=== PATIENT | female | born 1980 | race Caucasian/White ===

== ENCOUNTER 2016-09-25 23:37 | Emergency (ER) | payer OTHER ==
[~2016-09-25 23:37] MED LIST: /ADVA50050; /MYCO50TA PO; BENA25TA4 PO; CYMB1CAP PO; IBUP200T2 PO; MEST60TA; MEST60TA PO; MOTR200T44 PO; POTA95TA PO; PROV90AE; ZOLO100T PO; ZONI100C2 PO
[2016-09-26] MEDS ORDERED: ONDANSETRON 4 MG ORAL DISINTEGRATING TAB (S0181) As Ordered ONE (01:33)
[2016-09-26 01:50] LABS: CONTROL LINE HCG INT CTR LINE PRESENT
[2016-09-26 01:51] LABS: BASO % 0.5 % (0.0-1.0); EOS # 0.2 K/mm3 (0.0-0.50); EOS % 2.1 % (0.0-3.0); LARGE UNSTAINED CELL # 0.1 K/mm3 (0.0-0.4); LARGE UNSTAINED CELL % 1.5 % (0.0-4.0); LYMPH # 1.4 K/mm3 (1.5-4.5); LYMPH % 17.1 % (24.0-44.0); MEAN CORPUSCULAR HEMOGLOBIN 31.9 pg (27.0-33.0); MEAN CORPUSCULAR HGB CONC 34.2 g/dl (32.0-36.5); MEAN CORPUSCULAR VOLUME 93.1 fl (80.0-96.0); MONO # 0.3 K/mm3 (0.0-0.8); MONO % 3.3 % (0.0-5.0); NEUTROPHILS # 6.3 K/mm3 (1.8-7.7); NEUTROPHILS % 75.5 % (36.0-66.0); PLATELET COUNT, AUTOMATED 399 k/mm3 (150-450); RED CELL DISTRIBUTION WIDTH 12.1 % (11.5-14.5); WHITE BLOOD COUNT 8.3 K/mm3 (4.0-10.0)
[2016-09-26 02:06] LABS: ALBUMIN 3.8 GM/DL (3.2-5.2); ALBUMIN/GLOBULIN RATIO 0.86 (1.00-1.93); ALKALINE PHOSPHATASE 90 U/L (45-117); ALT/SGPT 16 U/L (12-78); AMYLASE 68 U/L (25-115); ANION GAP 7 MEQ/L (8-16); AST/SGOT 9 U/L (15-37); BILIRUBIN,DIRECT < 0.1 MG/DL (0.0-0.2); BILIRUBIN,TOTAL 0.2 MG/DL (0.2-1.0); BLOOD UREA NITROGEN 4 MG/DL (7-18); CALCIUM LEVEL 8.3 MG/DL (8.5-10.1); CARBON DIOXIDE LEVEL 25 MEQ/L (21-32); CHLORIDE LEVEL 107 MEQ/L (98-107); CREATININE FOR GFR 0.66 MG/DL (0.55-1.02); GLOMERULAR FILTRATION RATE > 60.0 (>60); GLUCOSE, FASTING 93 MG/DL (70-105); POTASSIUM SERUM 3.4 MEQ/L (3.5-5.1); SODIUM LEVEL 139 MEQ/L (136-145); TOTAL PROTEIN 8.2 GM/DL (6.4-8.2)
--- NOTE | 2016-09-26 04:09 | EDDOCDS ---
Physician Documentation [facility] Name: Prabha Aquino Age: 36 yrs Sex: Female : 1980 Arrival Date: 09/25/2016 Time: 23:37 Bed 17 Private MD: NO PRIMARY PHYSICIAN, . Disposition: 09/26/16 03:52 Discharged to Home/Self Care. Impression: Vomiting. - Condition is Stable. - Discharge Instructions: Nausea and Vomiting, Nausea and Vomiting, [id number]. - Prescriptions for ZOFRAN ODT 4 mg - dissolve 1 tablet by ORAL route 4 times per day As needed do not chew, do not swallow whole; 10 tablet. - Medication Reconciliation, Local Pharmacy Hours form. - Follow up: Private Physician; When: 4 - 5 days; Reason: Continuance of care. - Problem is an acute exacerbation. - Symptoms have improved. Historical: - Allergies: IV Dye; Narcotics (myasthenia gravis); Nitrofurantoin Macrocrystal (Rash); PENICILLINS (Hives); SULFA (SULFONAMIDES)breathing difficulty; - Home Meds: 1. albuterol sulfate 90 mcg/actuation Inhl HFAA 2 puffs as needed 2. Mestinon 60 mg Oral tab 1 tab every 4 hours for myasthenia gravis 3. Motrin Oral 600 mg as needed 4. IV Ig every other week 5. potassium chloride 20 mEq Oral TbTQ 1 tab once daily - PMHx: Asthma; Gall Bladder Disease; Kidney stones; Migraine Headaches; myasthenia gravis; - PSHx: Cholecystectomy; - Social history: Smoking status: Patient uses tobacco products, light tobacco smoker. No barriers to communication noted, The patient speaks fluent Japanese, Speaks appropriately for age. - Family history: Not pertinent. - : The pt / caregiver states he / she is not on anticoagulants. Home medication list is obtained from the patient. - Exposure Risk Screening:: None identified. 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 11 in. (149.86 cm) (R); Pain 6/10; 01/17 03:58 Pulse 82 MON; Resp 20 S; Temp 98.5(TE); Pulse Ox 97% on R/A; Pain 0/10; cln 04:02 BP 180 / 78 RA Sitting (man/reg); cln 09/25 23:40 Body Mass Index 27.27 (61.23 kg, 149.86 cm) gr2 MDM: 01:09 Ondansetron 4 mg IVP once ordered. mm11 01:09 IV Saline Lock ordered. mm11 01:09 Undress patient appropriately for examination ordered. mm11 01:09 LR Solution 1000 ml IV at bolus once ordered. mm11 01:10 Amylase Ordered. EDMS 01:10 Basic Metabolic Profile Ordered. EDMS 01:10 CBC with Diff Ordered. EDMS 01:10 HCG,Serum Qualitative Ordered. EDMS 01:10 Lipase Ordered. EDMS 01:10 Liver Profile Ordered. EDMS 01:10 NOTHING BY MOUTH+DIET ordered. EDMS 01:33 Ondansetron ODT Oral Disintegrating Tablet 4 mg PO once ordered. mm11 01:45 Financial registration complete. hs2 02:10 Basic Metabolic Profile Reviewed. mm11 02:10 CBC with Diff Reviewed. mm11 02:10 Lipase Reviewed. mm11 02:10 Liver Profile Reviewed. mm11 02:10 Amylase Reviewed. mm11 02:10 HCG,Serum Qualitative Reviewed. mm11 03:51 [facility] Payment Agreement was scanned into [employer] and attached to record. hs2 Administered Medications: 01:30 Not Given (Patient Refused): Ondansetron 4 mg IVP once mlc 01:37 Drug: LR 1000 ml [lactated ringers intravenous solution] Route: IV; Rate: bolus; Site: mlc left antecubital; 01:37 Drug: Ondansetron ODT 4 mg [ondansetron 4 mg disintegrating tablet (1 tabs)] Route: PO; mlc Signatures: Dispatcher [employer] EDMS Mason Laureano RN RN cz Maynard, Matthew, DO DO mm11 Yola Rodriguez RN RN ko2 Terrie Summers, Reg Reg hs2 Ingris Hall RN [facility] [place] The chart was reviewed and I authenticate all verbal orders and agree with the evaluation and treatment provided.Attachments: 03:51 [facility] [place] hs2 MTDD
--- NOTE | 2016-09-26 04:09 | EDDOCDS ---
Nurse's Notes [facility] Name: Prabha Aquino Age: 36 yrs Sex: Female : 1980 Arrival Date: 09/25/2016 Time: 23:37 Bed 17 Private MD: NO PRIMARY PHYSICIAN, . Diagnosis: Vomiting Presentation: 09/25 23:52 Presenting complaint: Patient states: she has been vomiting for 2 days fever of 101 cz abdominal discomfort, throat itchy. Adult Sepsis Screening: The patient does not have new or worsening altered mentation. Patient's respiratory rate is less than 22. Systolic blood pressure is greater than 100. Patient has a qSOFA score of 0- Negative Sepsis Screen. Suicide/Homicide risk assessment- the patient denies having any suicidal and/or homicidal ideations and does not present with any other emotional, behavioral or mental health complaints. Status: Patient is not a clinical laboratory service teacher or dependent. Transition of care: patient was not received from another setting of care. 23:52 Acuity: GISELE Level 3 cz 23:52 Method Of Arrival: Walkin/Carried/Asstd cz Triage Assessment: 23:54 General: Appears in no apparent distress. Pain: Denies pain. Location: abdomen Pain. cz HIV screening NA for this visit Offered previously. 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 albuterol sulfate 90 mcg/actuation Inhl HFAA 2 puffs as needed 2. Mestinon 60 mg Oral tab 1 tab every 4 hours for myasthenia gravis 3. Motrin Oral 600 mg as needed 4. IV Ig every other week 5. potassium chloride 20 mEq Oral TbTQ 1 tab once daily - PMHx: Asthma; Gall Bladder Disease; Kidney stones; Migraine Headaches; myasthenia gravis; - PSHx: Cholecystectomy; - Social history: Smoking status: Patient uses tobacco products, light tobacco smoker. No barriers to communication noted, The patient speaks fluent Polish, Speaks appropriately for age. - Family history: Not pertinent. - : The pt / caregiver states he / she is not on anticoagulants. Home medication list is obtained from the patient. - Exposure Risk Screening:: None identified. Screenin/17 00:44 Screening information is obtained from the patient. Fall risk: No risks identified. ko2 Assistance ADL's: requires no assistance with activities of daily living. Abuse/DV Screen: The patient / caregiver reports he/she is: not in a situation that causes fear, pain or injury. Nutritional screening: No deficits noted. Advance Directives: Currently, there is no health care proxy. There is no active DNR order. There is a living will, There is no Power of Pilot Plant Operator. home support is adequate. Assessment: 00:43 General: Appears in no apparent distress, Behavior is cooperative. Pain: Location: ko2 abdomen Quality of pain is described as "uncomfortable not really a pain". Neurological: No deficits noted. Respiratory: Airway is patent Respiratory effort is even, unlabored, Respiratory pattern is regular, symmetrical. GI: Abdomen is non- distended Bowel sounds present X 4 quads. Abd is soft and non tender. Derm: Skin is normal. 01:43 General: Appears in no apparent distress, Behavior is cooperative. Pain: Location: ko2 abdomen. Neurological: No deficits noted. Respiratory: Airway is patent Respiratory effort is even, unlabored, Respiratory pattern is regular, symmetrical. Derm: Skin is normal. 03:51 General: Appears in no apparent distress, Behavior is cooperative. Neurological: No ko2 deficits noted. Respiratory: Airway is patent Respiratory effort is even, unlabored. Derm: Skin is normal. 04:07 General: Dr Mays notified with discharge BP and there are no concerns with discharge ko2 at this time.. Vital Signs: 09/25 23:40 BP 144 / 98; Pulse 92; Resp 18 S; Temp 98.2(O); Pulse Ox 100% on R/A; Weight 61.23 kg gr2 (R); Height 4 ft. 11 in. (149.86 cm) (R); Pain 6/10; 09/26 03:58 Pulse 82 MON; Resp 20 S; Temp 98.5(TE); Pulse Ox 97% on R/A; Pain 0/10; cln 04:02 BP 180 / 78 RA Sitting (man/reg); cln 09/25 23:40 Body Mass Index 27.27 (61.23 kg, 149.86 cm) gr2 Vitals: 09/25 23:40 Log In Time: September 25, 2016 at 23:40. gr2 ED Course: 23:39 Patient visited by Alondra Judge. gr2 23:39 NO PRIMARY PHYSICIAN, . is Private Physician. gr2 23:39 Patient moved to Waiting gr2 23:40 Patient visited by Alondra Judge. gr2 23:40 Patient moved to Pre RCE gr2 23:53 Triage Initiated cz 09/26 00:22 Yola Rodriguez RN is Primary Nurse. cz 00:22 Patient moved to 17 cz 00:28 Patient visited by Salome Seanz PCA. lamberto 00:45 Patient visited by Yola Rodriguez RN. ko2 00:56 Rafael Mays DO is Attending Physician. mm11 00:56 Patient visited by Rafael Mays DO. mm11 01:05 Patient visited by Rafael Mays DO. mm11 01:30 Amylase Sent. mlc 01:30 Basic Metabolic Profile Sent. mlc 01:30 CBC with Diff Sent. mlc 01:30 HCG,Serum Qualitative Sent. mlc 01:30 Lipase Sent. mlc 01:30 Liver Profile Sent. mlc 01:37 Inserted saline lock: 20 gauge in left antecubital area and blood collected. The mlc patient tolerated the procedure well. 01:44 The patient / caregiver is instructed regarding the plan of care and ED course. ko2 01:45 Patient visited by Yola Rodriguez RN. ko2 02:48 Patient visited by Salome Saenz PCA. lamberto 03:22 Patient visited by Palmira Dillard LPN. cp1 03:51 [facility] Payment Agreement was scanned into [employer] and attached to record. hs2 03:58 Discontinued lock intact, bleeding controlled, pressure dressing applied, No ko2 redness/swelling at site. No procedures done that require assistance. 04:02 Patient visited by Leslie Mak PCA. cln Administered Medications: 01:30 Not Given (Patient Refused): Ondansetron 4 mg IVP once mlc 01:37 Drug: LR 1000 ml [lactated ringers intravenous solution] Route: IV; Rate: bolus; Site: mlc left antecubital; 01:37 Drug: Ondansetron ODT 4 mg [ondansetron 4 mg disintegrating tablet (1 tabs)] Route: PO; mlc Order Results: Lab Order: Amylase; SPEC'M 09/26/16 01:29 Test: AMYLASE; Value: 68; Range: 25-115; Units: U/L; Status: F Lab Order: Basic Metabolic Profile; SPEC'M 09/26/16 01:29 Test: GLUCOSE, FASTING; Value: 93; Range: 70-105; Units: MG/DL; Status: F Test: BLOOD UREA NITROGEN; Value: 4; Range: 7-18; Abnormal: Below low normal; Units: MG/DL; Status: F Test: CREATININE FOR GFR; Value: 0.66; Range: 0.55-1.02; Units: MG/DL; Status: F Test: SODIUM LEVEL; Range: 136-145; Units: MEQ/L; Status: I Test: POTASSIUM SERUM; Range: 3.5-5.1; Units: MEQ/L; Status: I Test: CHLORIDE LEVEL; Range: 98-107; Units: MEQ/L; Status: I Test: CARBON DIOXIDE LEVEL; Range: 21-32; Units: MEQ/L; Status: I Test: ANION GAP; Range: 8-16; Units: MEQ/L; Status: I Test: CALCIUM LEVEL; Range: 8.5-10.1; Units: MG/DL; Status: I Test: GLOMERULAR FILTRATION RATE; Value: > 60.0; Range: >60; Status: F Test: SODIUM LEVEL; Value: 139; Range: 136-145; Units: MEQ/L; Status: F Test: POTASSIUM SERUM; Value: 3.4; Range: 3.5-5.1; Abnormal: Below low normal; Units: MEQ/L; Status: F Test: CHLORIDE LEVEL; Value: 107; Range: 98-107; Units: MEQ/L; Status: F Test: CARBON DIOXIDE LEVEL; Value: 25; Range: 21-32; Units: MEQ/L; Status: F Test: ANION GAP; Value: 7; Range: 8-16; Abnormal: Below low normal; Units: MEQ/L; Status: F Test: CALCIUM LEVEL; Value: 8.3; Range: 8.5-10.1; Abnormal: Below low normal; Units: MG/DL; Status: F Test Note: ; Units are mL/min/1.73 m2 Chronic Kidney Disease Staging per NKF: Stage I & II GFR >=60 Normal to Mildly Decreased Stage III GFR 30-59 Moderately Decreased Stage IV GFR 15-29 Severely Decreased Stage V GFR <15 Very Little GFR Left ESRD GFR <15 on BLADE CHANGER Lab Order: CBC with Diff; SPEC'M 09/26/16 01:29 Test: WHITE BLOOD COUNT; Value: 8.3; Range: 4.0-10.0; Units: K/mm3; Status: F Test: RED BLOOD COUNT; Value: 4.75; Range: 4.00-5.40; Units: M/mm3; Status: F Test: HEMOGLOBIN; Value: 15.1; Range: 12.0-16.0; Units: g/dl; Status: F Test: HEMATOCRIT; Value: 44.2; Range: 36.0-47.0; Units: %; Status: F Test: MEAN CORPUSCULAR VOLUME; Value: 93.1; Range: 80.0-96.0; Units: fl; Status: F Test: MEAN CORPUSCULAR HEMOGLOBIN; Value: 31.9; Range: 27.0-33.0; Units: pg; Status: F Test: MEAN CORPUSCULAR HGB CONC; Value: 34.2; Range: 32.0-36.5; Units: g/dl; Status: F Test: RED CELL DISTRIBUTION WIDTH; Value: 12.1; Range: 11.5-14.5; Units: %; Status: F Test: PLATELET COUNT, AUTOMATED; Value: 399; Range: 150-450; Units: k/mm3; Status: F Test: NEUTROPHILS %; Value: 75.5; Range: 36.0-66.0; Abnormal: Above high normal; Units: %; Status: F Test: LYMPH %; Value: 17.1; Range: 24.0-44.0; Abnormal: Below low normal; Units: %; Status: F Test: MONO %; Value: 3.3; Range: 0.0-5.0; Units: %; Status: F Test: EOS %; Value: 2.1; Range: 0.0-3.0; Units: %; Status: F Test: BASO %; Value: 0.5; Range: 0.0-1.0; Units: %; Status: F Test: LARGE UNSTAINED CELL %; Value: 1.5; Range: 0.0-4.0; Units: %; Status: F Test: NEUTROPHILS #; Value: 6.3; Range: 1.8-7.7; Units: K/mm3; Status: F Test: LYMPH #; Value: 1.4; Range: 1.5-4.5; Abnormal: Below low normal; Units: K/mm3; Status: F Test: MONO #; Value: 0.3; Range: 0.0-0.8; Units: K/mm3; Status: F Test: EOS #; Value: 0.2; Range: 0.0-0.50; Units: K/mm3; Status: F Test: BASO #; Value: 0.0; Range: 0.0-0.2; Units: K/mm3; Status: F Test: LARGE UNSTAINED CELL #; Value: 0.1; Range: 0.0-0.4; Units: K/mm3; Status: F Lab Order: HCG,Serum Qualitative; SPEC 09/26/16 Test: HCG, SERUM QUALITATIVE; Value: NEGATIVE; Range: NEGATIVE; Status: F Lab Order: Lipase; SPEC 09/26/16:29 Test: LIPASE; Value: 580; Range: 73-393; Abnormal: Above high normal; Units: U/L; Status: F Lab Order: Liver Profile; 09/26/16:29 Test: AST/SGOT; Value: 9; Range: 15-37; Abnormal: Below low normal; Units: U/L; Status: F Test: ALT/SGPT; Value: 16; Range: 12-78; Units: U/L; Status: F Test: ALKALINE PHOSPHATASE; Value: 90; Range: 45-117; Units: U/L; Status: F Test: BILIRUBIN,TOTAL; Value: 0.2; Range: 0.2-1.0; Units: MG/DL; Status: F Test: BILIRUBIN,DIRECT; Value: < 0.1; Range: 0.0-0.2; Units: MG/DL; Status: F Test: TOTAL PROTEIN; Value: 8.2; Range: 6.4-8.2; Units: GM/DL; Status: F Test: ALBUMIN; Value: 3.8; Range: 3.2-5.2; Units: GM/DL; Status: F Test: ALBUMIN/GLOBULIN RATIO; Value: 0.86; Range: 1.00-1.93; Abnormal: Below low normal; Status: F Outcome: 03:52 Discharge ordered by Provider. mm11 03:58 Discharge Assessment: Patient awake, alert and oriented x 3. No cognitive and/or ko2 functional deficits noted. Patient verbalized understanding of disposition instructions. patient administered narcotics - no. The following High Risk Discharge criteria are identified: None. Discharged to home ambulatory, with parent. Condition: stable. No special radiology studies were completed. Property sent home with patient. 04:08 Patient left the ED. ko2 Signatures: Mason Laureano, RN MALIHA cz Rafael Mays, DO mm11 Palmira Dillard,FRAME WIRER FRAME WIRER cp1 Salome Saenz, DIRECTOR MORTGAGE DIRECTOR MORTGAGE lamberto Alondra Judge gr2 Ingris Hall RN RN mlc Yola Rodriguez RN RN ko2 Terrie Summers, Reg Reg hs2 Leslie Mak, DIRECTOR MORTGAGE DIRECTOR MORTGAGE cln Corrections: (The following items were deleted from the chart) 04:02 03:58 BP 180 / 78 Sitting Auto R Arm Regular; cln cln MTDD
--- NOTE | 2016-09-28 05:09 | EDDOCDS ---
Physician Documentation [facility] Name: Prabha Aquino Age: 36 yrs Sex: Female : 1980 Arrival Date: 09/25/2016 Time: 23:37 Bed 17 Private MD: NO PRIMARY PHYSICIAN, . Disposition: 09/26/16 03:52 Discharged to Home/Self Care. Impression: Vomiting. - Condition is Stable. - Discharge Instructions: Nausea and Vomiting, Nausea and Vomiting, [id number]. - Prescriptions for ZOFRAN ODT 4 mg - dissolve 1 tablet by ORAL route 4 times per day As needed do not chew, do not swallow whole; 10 tablet. - Medication Reconciliation, Local Pharmacy Hours form. - Follow up: Private Physician; When: 4 - 5 days; Reason: Continuance of care. - Problem is an acute exacerbation. - Symptoms have improved. Historical: - Allergies: IV Dye; Narcotics (myasthenia gravis); Nitrofurantoin Macrocrystal (Rash); PENICILLINS (Hives); SULFA (SULFONAMIDES)breathing difficulty; - Home Meds: 1. albuterol sulfate 90 mcg/actuation Inhl HFAA 2 puffs as needed 2. Mestinon 60 mg Oral tab 1 tab every 4 hours for myasthenia gravis 3. Motrin Oral 600 mg as needed 4. IV Ig every other week 5. potassium chloride 20 mEq Oral TbTQ 1 tab once daily - PMHx: Asthma; Gall Bladder Disease; Kidney stones; Migraine Headaches; myasthenia gravis; - PSHx: Cholecystectomy; - Social history: Smoking status: Patient uses tobacco products, light tobacco smoker. No barriers to communication noted, The patient speaks fluent Chinese, Speaks appropriately for age. - Family history: Not pertinent. - : The pt / caregiver states he / she is not on anticoagulants. Home medication list is obtained from the patient. - Exposure Risk Screening:: None identified. 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 11 in. (149.86 cm) (R); Pain 6/10; 01/17 03:58 Pulse 82 MON; Resp 20 S; Temp 98.5(TE); Pulse Ox 97% on R/A; Pain 0/10; cln 04:02 BP 180 / 78 RA Sitting (man/reg); cln 09/25 23:40 Body Mass Index 27.27 (61.23 kg, 149.86 cm) gr2 MDM: 01:09 Ondansetron 4 mg IVP once ordered. mm11 01:09 IV Saline Lock ordered. mm11 01:09 Undress patient appropriately for examination ordered. mm11 01:09 LR Solution 1000 ml IV at bolus once ordered. mm11 01:10 Amylase Ordered. EDMS 01:10 Basic Metabolic Profile Ordered. EDMS 01:10 CBC with Diff Ordered. EDMS 01:10 HCG,Serum Qualitative Ordered. EDMS 01:10 Lipase Ordered. EDMS 01:10 Liver Profile Ordered. EDMS 01:10 NOTHING BY MOUTH+DIET ordered. EDMS 01:33 Ondansetron ODT Oral Disintegrating Tablet 4 mg PO once ordered. mm11 01:45 Financial registration complete. hs2 02:10 Basic Metabolic Profile Reviewed. mm11 02:10 CBC with Diff Reviewed. mm11 02:10 Lipase Reviewed. mm11 02:10 Liver Profile Reviewed. mm11 02:10 Amylase Reviewed. mm11 02:10 HCG,Serum Qualitative Reviewed. mm11 03:51 [facility] [place] Agreement was scanned into [employer] and attached to record. hs2 11:09 T-Sheet-- Draft Copy was scanned into [employer] and attached to record. gb Administered Medications: 01:30 Not Given (Patient Refused): Ondansetron 4 mg IVP once mlc 01:37 Drug: LR 1000 ml [lactated ringers intravenous solution] Route: IV; Rate: bolus; Site: mlc left antecubital; 01:37 Drug: Ondansetron ODT 4 mg [ondansetron 4 mg disintegrating tablet (1 tabs)] Route: PO; mlc Signatures: Dispatcher [employer] Mason Lynch RN RN cz Barnhardt, Gloria, Reg Reg gb Rafael Mays, DO mm11 Yola Rodriguez RN RN ko2 Terrie Summers, Reg Reg hs2 Ingris Hall RN mlc The chart was reviewed and I authenticate all verbal orders and agree with the evaluation and treatment provided.Attachments: 03:51 [facility] Payment Agreement hs2 11:09 T-Sheet-- Draft Copy gb Chart Complete MTDD
--- NOTE | 2016-09-28 05:09 | EDDOCDS ---
Physician Documentation [facility] Name: Prabha Aquino Age: 36 yrs Sex: Female : 1980 Arrival Date: 09/25/2016 Time: 23:37 Bed 17 Private MD: NO PRIMARY PHYSICIAN, . Disposition: 09/26/16 03:52 Discharged to Home/Self Care. Impression: Vomiting. - Condition is Stable. - Discharge Instructions: Nausea and Vomiting, Nausea and Vomiting, [id number]. - Prescriptions for ZOFRAN ODT 4 mg - dissolve 1 tablet by ORAL route 4 times per day As needed do not chew, do not swallow whole; 10 tablet. - Medication Reconciliation, Local Pharmacy Hours form. - Follow up: Private Physician; When: 4 - 5 days; Reason: Continuance of care. - Problem is an acute exacerbation. - Symptoms have improved. Historical: - Allergies: IV Dye; Narcotics (myasthenia gravis); Nitrofurantoin Macrocrystal (Rash); PENICILLINS (Hives); SULFA (SULFONAMIDES)breathing difficulty; - Home Meds: 1. albuterol sulfate 90 mcg/actuation Inhl HFAA 2 puffs as needed 2. Mestinon 60 mg Oral tab 1 tab every 4 hours for myasthenia gravis 3. Motrin Oral 600 mg as needed 4. IV Ig every other week 5. potassium chloride 20 mEq Oral TbTQ 1 tab once daily - PMHx: Asthma; Gall Bladder Disease; Kidney stones; Migraine Headaches; myasthenia gravis; - PSHx: Cholecystectomy; - Social history: Smoking status: Patient uses tobacco products, light tobacco smoker. No barriers to communication noted, The patient speaks fluent Divehi, Speaks appropriately for age. - Family history: Not pertinent. - : The pt / caregiver states he / she is not on anticoagulants. Home medication list is obtained from the patient. - Exposure Risk Screening:: None identified. 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 11 in. (149.86 cm) (R); Pain 6/10; 01/17 03:58 Pulse 82 MON; Resp 20 S; Temp 98.5(TE); Pulse Ox 97% on R/A; Pain 0/10; cln 04:02 BP 180 / 78 RA Sitting (man/reg); cln 09/25 23:40 Body Mass Index 27.27 (61.23 kg, 149.86 cm) gr2 MDM: 01:09 Ondansetron 4 mg IVP once ordered. mm11 01:09 IV Saline Lock ordered. mm11 01:09 Undress patient appropriately for examination ordered. mm11 01:09 LR Solution 1000 ml IV at bolus once ordered. mm11 01:10 Amylase Ordered. EDMS 01:10 Basic Metabolic Profile Ordered. EDMS 01:10 CBC with Diff Ordered. EDMS 01:10 HCG,Serum Qualitative Ordered. EDMS 01:10 Lipase Ordered. EDMS 01:10 Liver Profile Ordered. EDMS 01:10 NOTHING BY MOUTH+DIET ordered. EDMS 01:33 Ondansetron ODT Oral Disintegrating Tablet 4 mg PO once ordered. mm11 01:45 Financial registration complete. hs2 02:10 Basic Metabolic Profile Reviewed. mm11 02:10 CBC with Diff Reviewed. mm11 02:10 Lipase Reviewed. mm11 02:10 Liver Profile Reviewed. mm11 02:10 Amylase Reviewed. mm11 02:10 HCG,Serum Qualitative Reviewed. mm11 03:51 [facility] [place] Payment Agreement was scanned into [employer] and attached to record. hs2 11:09 T-Sheet-- Draft Copy was scanned into [employer] and attached to record. gb Administered Medications: 01:30 Not Given (Patient Refused): Ondansetron 4 mg IVP once mlc 01:37 Drug: LR 1000 ml [lactated ringers intravenous solution] Route: IV; Rate: bolus; Site: mlc left antecubital; 01:37 Drug: Ondansetron ODT 4 mg [ondansetron 4 mg disintegrating tablet (1 tabs)] Route: PO; mlc Signatures: Dispatcher [employer] Mason Lynch RN RN cz Barnhardt, Gloria, Reg Reg gb Rafael Mays, DO mm11 Yola Rodriguez RN RN ko2 Terrie Summers, Reg Reg hs2 Ingris Hall RN mlc The chart was reviewed and I authenticate all verbal orders and agree with the evaluation and treatment provided.Attachments: 03:51 [facility] Payment Agreement hs2 11:09 T-Sheet-- Draft Copy gb Chart Complete MTDD
--- NOTE | 2016-09-28 05:09 | EDDOCDS ---
Nurse's Notes [facility] Name: Prabha Aquino Age: 36 yrs Sex: Female : 1980 Arrival Date: 09/25/2016 Time: 23:37 Bed 17 Private MD: NO PRIMARY PHYSICIAN, . Diagnosis: Vomiting Presentation: 09/25 23:52 Presenting complaint: Patient states: she has been vomiting for 2 days fever of 101 cz abdominal discomfort, throat itchy. Adult Sepsis Screening: The patient does not have new or worsening altered mentation. Patient's respiratory rate is less than 22. Systolic blood pressure is greater than 100. Patient has a qSOFA score of 0- Negative Sepsis Screen. Suicide/Homicide risk assessment- the patient denies having any suicidal and/or homicidal ideations and does not present with any other emotional, behavioral or mental health complaints. Status: Patient is not a director construction services or dependent. Transition of care: patient was not received from another setting of care. 23:52 Acuity: GISELE Level 3 cz 23:52 Method Of Arrival: Walkin/Carried/Asstd cz Triage Assessment: 23:54 General: Appears in no apparent distress. Pain: Denies pain. Location: abdomen Pain. cz HIV screening NA for this visit Offered previously. AUDIO VISUAL MANAGER: 23:54 LMP 09/24/2016 cz Historical: - Allergies: IV Dye; Narcotics (myasthenia gravis); Nitrofurantoin Macrocrystal (Rash); PENICILLINS (Hives); SULFA (SULFONAMIDES)breathing difficulty; - Home Meds: 1. albuterol sulfate 90 mcg/actuation Inhl HFAA 2 puffs as needed 2. Mestinon 60 mg Oral tab 1 tab every 4 hours for myasthenia gravis 3. Motrin Oral 600 mg as needed 4. IV Ig every other week 5. potassium chloride 20 mEq Oral TbTQ 1 tab once daily - PMHx: Asthma; Gall Bladder Disease; Kidney stones; Migraine Headaches; myasthenia gravis; - PSHx: Cholecystectomy; - Social history: Smoking status: Patient uses tobacco products, light tobacco smoker. No barriers to communication noted, The patient speaks fluent Turkmen, Speaks appropriately for age. - Family history: Not pertinent. - : The pt / caregiver states he / she is not on anticoagulants. Home medication list is obtained from the patient. - Exposure Risk Screening:: None identified. Screenin/17 00:44 Screening information is obtained from the patient. Fall risk: No risks identified. ko2 Assistance ADL's: requires no assistance with activities of daily living. Abuse/DV Screen: The patient / caregiver reports he/she is: not in a situation that causes fear, pain or injury. Nutritional screening: No deficits noted. Advance Directives: Currently, there is no health care proxy. There is no active DNR order. There is a living will, There is no Power of Agent Producer. home support is adequate. Assessment: 00:43 General: Appears in no apparent distress, Behavior is cooperative. Pain: Location: ko2 abdomen Quality of pain is described as "uncomfortable not really a pain". Neurological: No deficits noted. Respiratory: Airway is patent Respiratory effort is even, unlabored, Respiratory pattern is regular, symmetrical. GI: Abdomen is non- distended Bowel sounds present X 4 quads. Abd is soft and non tender. Derm: Skin is normal. 01:43 General: Appears in no apparent distress, Behavior is cooperative. Pain: Location: ko2 abdomen. Neurological: No deficits noted. Respiratory: Airway is patent Respiratory effort is even, unlabored, Respiratory pattern is regular, symmetrical. Derm: Skin is normal. 03:51 General: Appears in no apparent distress, Behavior is cooperative. Neurological: No ko2 deficits noted. Respiratory: Airway is patent Respiratory effort is even, unlabored. Derm: Skin is normal. 04:07 General: Dr Mays notified with discharge BP and there are no concerns with discharge ko2 at this time.. Vital Signs: 09/25 23:40 BP 144 / 98; Pulse 92; Resp 18 S; Temp 98.2(O); Pulse Ox 100% on R/A; Weight 61.23 kg gr2 (R); Height 4 ft. 11 in. (149.86 cm) (R); Pain 6/10; 09/26 03:58 Pulse 82 MON; Resp 20 S; Temp 98.5(TE); Pulse Ox 97% on R/A; Pain 0/10; cln 04:02 BP 180 / 78 RA Sitting (man/reg); cln 09/25 23:40 Body Mass Index 27.27 (61.23 kg, 149.86 cm) gr2 Vitals: 09/25 23:40 Log In Time: September 25, 2016 at 23:40. gr2 ED Course: 23:39 Patient visited by Alondra Judge. gr2 23:39 NO PRIMARY PHYSICIAN, . is Private Physician. gr2 23:39 Patient moved to Waiting gr2 23:40 Patient visited by Alondra Judge. gr2 23:40 Patient moved to Pre RCE gr2 23:53 Triage Initiated cz 09/26 00:22 Yola Rodriguez,MALIHA is Primary Nurse. cz 00:22 Patient moved to 17 cz 00:28 Patient visited by Saloem Saenz PCA. lamberto 00:45 Patient visited by Yola Rodriguez RN. ko2 00:56 Rafael Mays DO is Attending Physician. mm11 00:56 Patient visited by Rafael Mays DO. mm11 01:05 Patient visited by Rafael Mays DO. mm11 01:30 Amylase Sent. mlc 01:30 Basic Metabolic Profile Sent. mlc 01:30 CBC with Diff Sent. mlc 01:30 HCG,Serum Qualitative Sent. mlc 01:30 Lipase Sent. mlc 01:30 Liver Profile Sent. mlc 01:37 Inserted saline lock: 20 gauge in left antecubital area and blood collected. The mlc patient tolerated the procedure well. 01:44 The patient / caregiver is instructed regarding the plan of care and ED course. ko2 01:45 Patient visited by Yola Rodriguez RN. ko2 02:48 Patient visited by Salome Saenz PCA. lamberto 03:22 Patient visited by Palmira Dillard LPN. cp1 03:51 [facility] Payment Agreement was scanned into [employer] and attached to record. hs2 03:58 Discontinued lock intact, bleeding controlled, pressure dressing applied, No ko2 redness/swelling at site. No procedures done that require assistance. 04:02 Patient visited by Leslie Mak PCA. cln 11:09 T-Sheet-- Draft Copy was scanned into [employer] and attached to record. gb Administered Medications: 01:30 Not Given (Patient Refused): Ondansetron 4 mg IVP once mlc 01:37 Drug: LR 1000 ml [lactated ringers intravenous solution] Route: IV; Rate: bolus; Site: [facility] left antecubital; 01:37 Drug: Ondansetron ODT 4 mg [ondansetron 4 mg disintegrating tablet (1 tabs)] Route: PO; mlc Order Results: Lab Order: Amylase; SPEC'M 09/26/16 01:29 Test: AMYLASE; Value: 68; Range: 25-115; Units: U/L; Status: F Lab Order: Basic Metabolic Profile; SPEC'M 09/26/16 01:29 Test: GLUCOSE, FASTING; Value: 93; Range: 70-105; Units: MG/DL; Status: F Test: BLOOD UREA NITROGEN; Value: 4; Range: 7-18; Abnormal: Below low normal; Units: MG/DL; Status: F Test: CREATININE FOR GFR; Value: 0.66; Range: 0.55-1.02; Units: MG/DL; Status: F Test: SODIUM LEVEL; Range: 136-145; Units: MEQ/L; Status: I Test: POTASSIUM SERUM; Range: 3.5-5.1; Units: MEQ/L; Status: I Test: CHLORIDE LEVEL; Range: 98-107; Units: MEQ/L; Status: I Test: CARBON DIOXIDE LEVEL; Range: 21-32; Units: MEQ/L; Status: I Test: ANION GAP; Range: 8-16; Units: MEQ/L; Status: I Test: CALCIUM LEVEL; Range: 8.5-10.1; Units: MG/DL; Status: I Test: GLOMERULAR FILTRATION RATE; Value: > 60.0; Range: >60; Status: F Test: SODIUM LEVEL; Value: 139; Range: 136-145; Units: MEQ/L; Status: F Test: POTASSIUM SERUM; Value: 3.4; Range: 3.5-5.1; Abnormal: Below low normal; Units: MEQ/L; Status: F Test: CHLORIDE LEVEL; Value: 107; Range: 98-107; Units: MEQ/L; Status: F Test: CARBON DIOXIDE LEVEL; Value: 25; Range: 21-32; Units: MEQ/L; Status: F Test: ANION GAP; Value: 7; Range: 8-16; Abnormal: Below low normal; Units: MEQ/L; Status: F Test: CALCIUM LEVEL; Value: 8.3; Range: 8.5-10.1; Abnormal: Below low normal; Units: MG/DL; Status: F Test Note: ; Units are mL/min/1.73 m2 Chronic Kidney Disease Staging per NKF: Stage I & II GFR >=60 Normal to Mildly Decreased Stage III GFR 30-59 Moderately Decreased Stage IV GFR 15-29 Severely Decreased Stage V GFR <15 Very Little GFR Left ESRD GFR <15 on CONSTRUCTION SUPERINTENDENT Lab Order: CBC with Diff; SPEC'M 09/26/16 01:29 Test: WHITE BLOOD COUNT; Value: 8.3; Range: 4.0-10.0; Units: K/mm3; Status: F Test: RED BLOOD COUNT; Value: 4.75; Range: 4.00-5.40; Units: M/mm3; Status: F Test: HEMOGLOBIN; Value: 15.1; Range: 12.0-16.0; Units: g/dl; Status: F Test: HEMATOCRIT; Value: 44.2; Range: 36.0-47.0; Units: %; Status: F Test: MEAN CORPUSCULAR VOLUME; Value: 93.1; Range: 80.0-96.0; Units: fl; Status: F Test: MEAN CORPUSCULAR HEMOGLOBIN; Value: 31.9; Range: 27.0-33.0; Units: pg; Status: F Test: MEAN CORPUSCULAR HGB CONC; Value: 34.2; Range: 32.0-36.5; Units: g/dl; Status: F Test: RED CELL DISTRIBUTION WIDTH; Value: 12.1; Range: 11.5-14.5; Units: %; Status: F Test: PLATELET COUNT, AUTOMATED; Value: 399; Range: 150-450; Units: k/mm3; Status: F Test: NEUTROPHILS %; Value: 75.5; Range: 36.0-66.0; Abnormal: Above high normal; Units: %; Status: F Test: LYMPH %; Value: 17.1; Range: 24.0-44.0; Abnormal: Below low normal; Units: %; Status: F Test: MONO %; Value: 3.3; Range: 0.0-5.0; Units: %; Status: F Test: EOS %; Value: 2.1; Range: 0.0-3.0; Units: %; Status: F Test: BASO %; Value: 0.5; Range: 0.0-1.0; Units: %; Status: F Test: LARGE UNSTAINED CELL %; Value: 1.5; Range: 0.0-4.0; Units: %; Status: F Test: NEUTROPHILS #; Value: 6.3; Range: 1.8-7.7; Units: K/mm3; Status: F Test: LYMPH #; Value: 1.4; Range: 1.5-4.5; Abnormal: Below low normal; Units: K/mm3; Status: F Test: MONO #; Value: 0.3; Range: 0.0-0.8; Units: K/mm3; Status: F Test: EOS #; Value: 0.2; Range: 0.0-0.50; Units: K/mm3; Status: F Test: BASO #; Value: 0.0; Range: 0.0-0.2; Units: K/mm3; Status: F Test: LARGE UNSTAINED CELL #; Value: 0.1; Range: 0.0-0.4; Units: K/mm3; Status: F Lab Order: HCG,Serum Qualitative; SPEC' 09/26/16 01:29 Test: HCG, SERUM QUALITATIVE; Value: NEGATIVE; Range: NEGATIVE; Status: F Lab Order: Lipase; SPEC 09/26/16:29 Test: LIPASE; Value: 580; Range: 73-393; Abnormal: Above high normal; Units: U/L; Status: F Lab Order: Liver Profile; SPEC 09/26/16 01:29 Test: AST/SGOT; Value: 9; Range: 15-37; Abnormal: Below low normal; Units: U/L; Status: F Test: ALT/SGPT; Value: 16; Range: 12-78; Units: U/L; Status: F Test: ALKALINE PHOSPHATASE; Value: 90; Range: 45-117; Units: U/L; Status: F Test: BILIRUBIN,TOTAL; Value: 0.2; Range: 0.2-1.0; Units: MG/DL; Status: F Test: BILIRUBIN,DIRECT; Value: < 0.1; Range: 0.0-0.2; Units: MG/DL; Status: F Test: TOTAL PROTEIN; Value: 8.2; Range: 6.4-8.2; Units: GM/DL; Status: F Test: ALBUMIN; Value: 3.8; Range: 3.2-5.2; Units: GM/DL; Status: F Test: ALBUMIN/GLOBULIN RATIO; Value: 0.86; Range: 1.00-1.93; Abnormal: Below low normal; Status: F Outcome: 03:52 Discharge ordered by Provider. mm11 03:58 Discharge Assessment: Patient awake, alert and oriented x 3. No cognitive and/or ko2 functional deficits noted. Patient verbalized understanding of disposition instructions. patient administered narcotics - no. The following High Risk Discharge criteria are identified: None. Discharged to home ambulatory, with parent. Condition: stable. No special radiology studies were completed. Property sent home with patient. 04:08 Patient left the ED. ko2 Signatures: Mason Laureano, RN RN cz Lona Langley, Reg Reg gb Rafael Mays, DO mm11 Palmira Dillard,CREDIT VERIFIER CREDIT VERIFIER cp1 Salome Saenz, HABITAT BIOLOGIST HABITAT BIOLOGIST lamberto Alondra Judge gr2 Ingris Hall RN RN mlc Yola Rodriguez RN RN ko2 Terrie Summesr, Reg Reg hs2 Leslie Mak, HABITAT BIOLOGIST HABITAT BIOLOGIST cln Corrections: (The following items were deleted from the chart) 04:02 03:58 BP 180 / 78 Sitting Auto R Arm Regular; cln cln Chart Complete MTDD
== END 2016-09-26 04:08 | disposition home or self-care (01) ==
LOC: M ED 23:37
DX: R11.10 Vomiting, unspecified (principal); K82.9 Disease of gallbladder, unspecified; G43.909 Migraine, unspecified, not intractable, without status migrainosus; G70.00 Myasthenia gravis without (acute) exacerbation; J45.909 Unspecified asthma, uncomplicated; Z87.442 Personal history of urinary calculi; Z90.49 Acquired absence of other specified parts of digestive tract; F17.200 Nicotine dependence, unspecified, uncomplicated; Z79.899 Other long term (current) drug therapy; Z88.0 Allergy status to penicillin; Z88.2 Allergy status to sulfonamides; Z88.8 Allergy status to other drugs, medicaments and biological substances; Z88.5 Allergy status to narcotic agent; Z91.041 Radiographic dye allergy status

== ENCOUNTER 2016-09-30 18:24 | Emergency (ER) | payer OTHER ==
[2016-09-30] MEDS ORDERED: LORazepam 1 MG TAB As Ordered ONE (22:11)
[2016-09-30 22:44] LABS: BASO # 0.1 K/mm3 (0.0-0.2); BASO % 1.4 % (0.0-1.0); EOS # 0.2 K/mm3 (0.0-0.50); EOS % 2.2 % (0.0-3.0); LARGE UNSTAINED CELL # 0.1 K/mm3 (0.0-0.4); LARGE UNSTAINED CELL % 1.2 % (0.0-4.0); LYMPH # 2.2 K/mm3 (1.5-4.5); LYMPH % 22.9 % (24.0-44.0); MEAN CORPUSCULAR HEMOGLOBIN 31.7 pg (27.0-33.0); MEAN CORPUSCULAR HGB CONC 33.1 g/dl (32.0-36.5); MEAN CORPUSCULAR VOLUME 95.9 fl (80.0-96.0); MONO # 0.4 K/mm3 (0.0-0.8); MONO % 4.2 % (0.0-5.0); NEUTROPHILS # 6.2 K/mm3 (1.8-7.7); PLATELET COUNT, AUTOMATED 367 k/mm3 (150-450); RED CELL DISTRIBUTION WIDTH 12.9 % (11.5-14.5)
[2016-09-30 22:50] LABS: ANION GAP 4 MEQ/L (8-16); BLOOD UREA NITROGEN 5 MG/DL (7-18); CALCIUM LEVEL 8.5 MG/DL (8.5-10.1); CARBON DIOXIDE LEVEL 28 MEQ/L (21-32); CHLORIDE LEVEL 109 MEQ/L (98-107); CREATININE FOR GFR 0.58 MG/DL (0.55-1.02); GLOMERULAR FILTRATION RATE > 60.0 (>60); GLUCOSE, FASTING 98 MG/DL (70-105); MAGNESIUM LEVEL 1.8 MG/DL (1.8-2.4); POTASSIUM SERUM 3.4 MEQ/L (3.5-5.1); SODIUM LEVEL 141 MEQ/L (136-145)
--- NOTE | 2016-09-30 23:15 | EDDOCDS ---
Nurse's Notes [facility] Name: Prabha Aquino Age: 36 yrs Sex: Female : 1980 Arrival Date: 09/30/2016 Time: 18:24 Bed TR8 Private MD: NO PRIMARY PHYSICIAN, . Diagnosis: Palpitations;Anxiety disorder, unspecified Presentation: 09/30 18:30 Presenting complaint: Patient states: began having a shaky chest with palpitations 1 kr3 day ago. symptoms are intermittent and patient reports has increase of anxiety. Adult Sepsis Screening: The patient does not have new or worsening altered mentation. Patient's respiratory rate is less than 22. Systolic blood pressure is greater than 100. Patient has a qSOFA score of 0- Negative Sepsis Screen. Suicide/Homicide risk assessment- the patient denies having any suicidal and/or homicidal ideations and does not present with any other emotional, behavioral or mental health complaints. Status: Patient is not a financial services sales representative or dependent. Transition of care: patient was not received from another setting of care. 18:30 Acuity: GISELE Level 3 kr3 18:30 Method Of Arrival: Walkin/Carried/Asstd kr3 Triage Assessment: 18:33 General: Appears in no apparent distress, comfortable, Behavior is cooperative. Pain: kr3 Location: chest Pain currently is 2 out of 10 on a pain scale. Quality of pain is described as discomfort. HIV screening NA for this visit Offered previously. Cardiovascular: Reports palpitations last less than 1 minute and is unsure how frequent she feels them. Respiratory: Reports when has heart palpitations feels like breath goes away. Derm: Skin is pink, warm & dry. DELIMER: 18:33 LMP 09/27/2016 kr3 Historical: - Allergies: IV Dye; Narcotics (myasthenia gravis); Nitrofurantoin Macrocrystal (Rash); PENICILLINS (Hives); SULFA (SULFONAMIDES)breathing difficulty; - Home Meds: 1. albuterol sulfate 90 mcg/actuation Inhl HFAA 2 puffs as needed 2. Mestinon 60 mg Oral tab 1 tab every 4 hours for myasthenia gravis (Last dose: 09/30/2016) 3. Motrin Oral 600 mg as needed 4. potassium chloride 20 mEq Oral pack 1 tab once daily (Last dose: 09/29/2016) 5. IV Ig every other week - PMHx: Asthma; Gall Bladder Disease; Kidney stones; Migraine Headaches; myasthenia gravis; - PSHx: D & C; Cholecystectomy; Thyroid Surgery; - Social history: Smoking status: Patient uses tobacco products, current every day smoker. No barriers to communication noted, The patient speaks fluent Paraguayan, Speaks appropriately for age. - Family history: Not pertinent. - : The pt / caregiver states he / she is not on anticoagulants. Home medication list is obtained from the patient, [employer] import data. - Exposure Risk Screening:: None identified. Screenin:12 Screening information is obtained from the patient. Fall risk: No risks identified. cz Assistance ADL's: requires no assistance with activities of daily living. Abuse/DV Screen: The patient / caregiver reports he/she is: not in a situation that causes fear, pain or injury. Nutritional screening: No deficits noted. home support is adequate. Assessment: 23:12 Reassessment: Patient appears in no apparent distress at this time. Patient states cz symptoms have improved. Vital Signs: 18:26 BP 167 / 88; Pulse 86; Resp 18 S; Temp 98.0(O); Pulse Ox 100% on R/A; Weight 61.23 kg gr2 (M); Height 4 ft. 11 in. (149.86 cm) (R); Pain 2/10; 21:27 BP 150 / 94; Pulse 83; Resp 16; Temp 98.1(O); Pulse Ox 98% on R/A; Pain 0/10; sew 23:01 BP 162 / 86; Pulse 77; Resp 16; Temp 98.6(TE); Pulse Ox 98% on R/A; Pain 0/10; sew 18:26 Body Mass Index 27.27 (61.23 kg, 149.86 cm) gr2 Vitals: 18:26 Log In Time: September 30, 2016 at 18:26. gr2 18:28 RN notified that patient meets Red Flag criteria. gr2 ED Course: 18:25 Patient visited by Alondra Judge. gr2 18:25 Patient moved to Waiting gr2 18:26 NO PRIMARY PHYSICIAN, . is Private Physician. gr2 18:27 Patient visited by Alondra Judge. gr2 18:28 Patient visited by Alondra Judge. gr2 18:28 Patient moved to Pre RCE gr2 18:30 Patient moved to PR2 / 26 sew 18:32 Triage Initiated kr3 18:41 Patient visited by Aby Quach. sew 18:41 Patient moved to Pre RCE sew 18:41 EKG done. (by ED staff). Reviewed by Brady Gibson MD. sew 21:19 Patient moved to Triage 2 cz 21:28 Patient visited by Aby Quach. sew 21:43 José Miguel Herman PA is PHCP. mo1 21:43 Blayne Gutiérrez DO is Attending Physician. mo1 21:54 Patient visited by José Miguel Herman PA. mo1 22:04 Patient moved to Radiology cz 22:10 Patient moved to Triage 2 cz 22:16 Patient moved to TR2 cz 22:16 Magnesium Level Sent. sew 22:16 BMP Sent. sew 22:16 CBC with Diff Sent. sew 22:16 Labs drawn. (by ED staff). Sent per order to lab. sew 22:17 Patient visited by Aby Quach. sew 22:27 Patient name changed from Prabha\S\Mary\S\Sipos\S\ to Prabha\S\J\S\Sipos. EDMS 22:28 [facility] Payment Agreement was scanned into [employer] and attached to record. gjb 22:57 Patient moved to PR2 / 26 cz 23:00 [facility] is Referral Physician. mo1 23:00 Bennett Loera MD is Referral Physician. mo1 23:02 Patient visited by Aby Quach. sew 23:07 Patient moved to TR8 cz 23:12 The patient / caregiver is instructed regarding the plan of care and ED course. cz 23:12 No IV's were initiated during this patient's visit. No procedures done that require cz assistance. Administered Medications: 22:16 Drug: LORazepam 0.5 mg [lorazepam 1 mg tablet (0.5 tabs)] Route: PO; jf3 Order Results: Lab Order: CBC with Diff; SPEC'M 09/30/16 22:15 Test: WHITE BLOOD COUNT; Value: 9.0; Range: 4.0-10.0; Units: K/mm3; Status: F Test: RED BLOOD COUNT; Value: 4.52; Range: 4.00-5.40; Units: M/mm3; Status: F Test: HEMOGLOBIN; Value: 14.3; Range: 12.0-16.0; Units: g/dl; Status: F Test: HEMATOCRIT; Value: 43.4; Range: 36.0-47.0; Units: %; Status: F Test: MEAN CORPUSCULAR VOLUME; Value: 95.9; Range: 80.0-96.0; Units: fl; Status: F Test: MEAN CORPUSCULAR HEMOGLOBIN; Value: 31.7; Range: 27.0-33.0; Units: pg; Status: F Test: MEAN CORPUSCULAR HGB CONC; Value: 33.1; Range: 32.0-36.5; Units: g/dl; Status: F Test: RED CELL DISTRIBUTION WIDTH; Value: 12.9; Range: 11.5-14.5; Units: %; Status: F Test: PLATELET COUNT, AUTOMATED; Value: 367; Range: 150-450; Units: k/mm3; Status: F Test: NEUTROPHILS %; Value: 68.0; Range: 36.0-66.0; Abnormal: Above high normal; Units: %; Status: F Test: LYMPH %; Value: 22.9; Range: 24.0-44.0; Abnormal: Below low normal; Units: %; Status: F Test: MONO %; Value: 4.2; Range: 0.0-5.0; Units: %; Status: F Test: EOS %; Value: 2.2; Range: 0.0-3.0; Units: %; Status: F Test: BASO %; Value: 1.4; Range: 0.0-1.0; Abnormal: Above high normal; Units: %; Status: F Test: LARGE UNSTAINED CELL %; Value: 1.2; Range: 0.0-4.0; Units: %; Status: F Test: NEUTROPHILS #; Value: 6.2; Range: 1.8-7.7; Units: K/mm3; Status: F Test: LYMPH #; Value: 2.2; Range: 1.5-4.5; Units: K/mm3; Status: F Test: MONO #; Value: 0.4; Range: 0.0-0.8; Units: K/mm3; Status: F Test: EOS #; Value: 0.2; Range: 0.0-0.50; Units: K/mm3; Status: F Test: BASO #; Value: 0.1; Range: 0.0-0.2; Units: K/mm3; Status: F Test: LARGE UNSTAINED CELL #; Value: 0.1; Range: 0.0-0.4; Units: K/mm3; Status: F Lab Order: BMP; SPEC'M 09/30/16 22:15 Test: GLUCOSE, FASTING; Value: 98; Range: 70-105; Units: MG/DL; Status: F Test: BLOOD UREA NITROGEN; Value: 5; Range: 7-18; Abnormal: Below low normal; Units: MG/DL; Status: F Test: CREATININE FOR GFR; Value: 0.58; Range: 0.55-1.02; Units: MG/DL; Status: F Test: GLOMERULAR FILTRATION RATE; Value: > 60.0; Range: >60; Status: F Test: SODIUM LEVEL; Value: 141; Range: 136-145; Units: MEQ/L; Status: F Test: POTASSIUM SERUM; Value: 3.4; Range: 3.5-5.1; Abnormal: Below low normal; Units: MEQ/L; Status: F Test: CHLORIDE LEVEL; Value: 109; Range: 98-107; Abnormal: Above high normal; Units: MEQ/L; Status: F Test: CARBON DIOXIDE LEVEL; Value: 28; Range: 21-32; Units: MEQ/L; Status: F Test: ANION GAP; Value: 4; Range: 8-16; Abnormal: Below low normal; Units: MEQ/L; Status: F Test: CALCIUM LEVEL; Value: 8.5; Range: 8.5-10.1; Units: MG/DL; Status: F Test Note: ; Units are mL/min/1.73 m2 Chronic Kidney Disease Staging per NKF: Stage I & II GFR >=60 Normal to Mildly Decreased Stage III GFR 30-59 Moderately Decreased Stage IV GFR 15-29 Severely Decreased Stage V GFR <15 Very Little GFR Left ESRD GFR <15 on FISHERIES MANAGER Lab Order: Magnesium Level; SPEC'M 09/30/16 22:15 Test: MAGNESIUM LEVEL; Value: 1.8; Range: 1.8-2.4; Units: MG/DL; Status: F Outcome: 23:00 Discharge ordered by Provider. mo1 23:12 Discharge Assessment: Patient awake, alert and oriented x 3. No cognitive and/or cz functional deficits noted. Patient verbalized understanding of disposition instructions. patient administered narcotics - no. The following High Risk Discharge criteria are identified: None. Discharged to home ambulatory, with family. Condition: stable. Discharge instructions given to patient, Instructed on discharge instructions, follow up and referral plans. Demonstrated understanding of instructions, Pt was receptive of discharge instructions/ teaching. No special radiology studies were completed. Property :Personal belongings accompany Pt. 23:14 Patient left the ED. cz Signatures: Dispatcher [employer] EDMS Mason Laureano RN RN cz Kristi Diop,RN RN nitin3 Aby Quach [place] gr2 José Miguel Herman PA PA mo1 Luke Thompson,RN RN Idania Yen MTDD
--- NOTE | 2016-09-30 23:15 | EDDOCDS ---
Physician Documentation [facility] Name: Prabha Aquino Age: 36 yrs Sex: Female : 1980 Arrival Date: 09/30/2016 Time: 18:24 Bed TR8 Private MD: NO PRIMARY PHYSICIAN, . Disposition: 09/30/16 23:00 Discharged to Home/Self Care. Impression: Palpitations, Anxiety disorder, unspecified. - Condition is Stable. - Discharge Instructions: Panic Attacks, Palpitations. - Medication Reconciliation, Local Pharmacy Hours form. - [facility] up: [facility]; When: Call to arrange an appointment; Reason: Recheck today's complaints, Continuance of care. Follow up: Bennett Loera MD; When: Call to arrange an appointment; Reason: Recheck today's complaints, Continuance of care. - Problem is an ongoing problem. - Symptoms are resolved. Historical: - Allergies: IV Dye; Narcotics (myasthenia gravis); Nitrofurantoin Macrocrystal (Rash); PENICILLINS (Hives); SULFA (SULFONAMIDES)breathing difficulty; - Home Meds: 1. albuterol sulfate 90 mcg/actuation Inhl HFAA 2 puffs as needed 2. Mestinon 60 mg Oral tab 1 tab every 4 hours for myasthenia gravis (Last dose: 09/30/2016) 3. Motrin Oral 600 mg as needed 4. potassium chloride 20 mEq Oral pack 1 tab once daily (Last dose: 09/29/2016) 5. IV Ig every other week - PMHx: Asthma; Gall Bladder Disease; Kidney stones; Migraine Headaches; myasthenia gravis; - PSHx: D & C; Cholecystectomy; Thyroid Surgery; - Social history: Smoking status: Patient uses tobacco products, current every day smoker. No barriers to communication noted, The patient speaks fluent [place], Speaks appropriately for age. - Family history: Not pertinent. - : The pt / caregiver states he / she is not on anticoagulants. Home medication list is obtained from the patient, [employer] import data. - Exposure Risk Screening:: None identified. 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 11 in. (149.86 cm) (R); Pain 2/10; 21:27 BP 150 / 94; Pulse 83; Resp 16; Temp 98.1(O); Pulse Ox 98% on R/A; Pain 0/10; sew 23:01 BP 162 / 86; Pulse 77; Resp 16; Temp 98.6(TE); Pulse Ox 98% on R/A; Pain 0/10; sew 18:26 Body Mass Index 27.27 (61.23 kg, 149.86 cm) gr2 MDM: 18:31 ECG WITH READING ER PHYS+CARDIAG ordered. EDMS 22:00 LORazepam 0.5 mg PO once ordered. mo1 22:01 CBC with Diff Ordered. EDMS 22:01 BMP Ordered. EDMS 22:01 Magnesium Level Ordered. EDMS 22:01 Chest, 2 View (pa\E\lat) Ordered. EDMS 22:28 [facility] Payment Agreement was scanned into [employer] and attached to record. [facility] 22:28 Financial registration complete. gjb 22:56 BMP Reviewed. mo1 22:56 CBC with Diff Reviewed. mo1 22:56 Magnesium Level Reviewed. mo1 Administered Medications: 22:16 Drug: LORazepam 0.5 mg [lorazepam 1 mg tablet (0.5 tabs)] Route: PO; jf3 Signatures: Dispatcher [employer] EDMS Mason Laureano RN RN cz Robie, Kathleen, RN RN kr3 José Miguel Herman PA PA mo1 Idania Conde gjb Luke Thompson RN jf3 The chart was reviewed and I authenticate all verbal orders and agree with the evaluation and treatment provided.Attachments: 22:28 [facility] Payment Agreement [facility] MTDD
--- NOTE | 2016-10-01 13:10 | ECGEPIP ---
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
--- NOTE | 2016-10-01 16:16 | REP ---
PA and lateral chest: Comparisons 07/15/2016. Sternotomy wires are again noted. The lung valle are clear. The cardiac size is normal The anushka, mediastinum, and bony thorax are unremarkable. Impression: Negative PA and lateral chest. There is no interval change. Signed by Balbir Pulido MD 10/01/2016 04:07 P
--- NOTE | 2016-10-03 00:14 | EDDOCDS ---
Physician Documentation [facility] Name: Prabha Aquino Age: 36 yrs Sex: Female : 1980 Arrival Date: 09/30/2016 Time: 18:24 Bed TR8 Private MD: NO PRIMARY PHYSICIAN, . Disposition: 09/30/16 23:00 Discharged to Home/Self Care. Impression: Palpitations, Anxiety disorder, unspecified. - Condition is Stable. - Discharge Instructions: Panic Attacks, Palpitations. - Medication Reconciliation, Local Pharmacy Hours form. - [facility]: [facility]; When: Call to arrange an appointment; Reason: Recheck today's complaints, Continuance of care. Follow up: Bennett Loera MD; When: Call to arrange an appointment; Reason: Recheck today's complaints, Continuance of care. - Problem is an ongoing problem. - Symptoms are resolved. Historical: - Allergies: IV Dye; Narcotics (myasthenia gravis); Nitrofurantoin Macrocrystal (Rash); PENICILLINS (Hives); SULFA (SULFONAMIDES)breathing difficulty; - Home Meds: 1. albuterol sulfate 90 mcg/actuation Inhl HFAA 2 puffs as needed 2. Mestinon 60 mg Oral tab 1 tab every 4 hours for myasthenia gravis (Last dose: 09/30/2016) 3. Motrin Oral 600 mg as needed 4. potassium chloride 20 mEq Oral pack 1 tab once daily (Last dose: 09/29/2016) 5. IV Ig every other week - PMHx: Asthma; Gall Bladder Disease; Kidney stones; Migraine Headaches; myasthenia gravis; - PSHx: D & C; Cholecystectomy; Thyroid Surgery; - Social history: Smoking status: Patient uses tobacco products, current every day smoker. No barriers to communication noted, The patient speaks fluent Nicaraguan, Speaks appropriately for age. - Family history: Not pertinent. - : The pt / caregiver states he / she is not on anticoagulants. Home medication list is obtained from the patient, [employer] import data. - Exposure Risk Screening:: None identified. CARDIOLOGY TECH: 09/30 18:33 LMP 09/27/2016 kr3 Vital Signs: 18:26 BP 167 / 88; Pulse 86; Resp 18 S; Temp 98.0(O); Pulse Ox 100% on R/A; Weight 61.23 kg / gr2 134.99 lbs (M); Height 4 ft. 11 in. (149.86 cm) (R); Pain 2/10; 21:27 BP 150 / 94; Pulse 83; Resp 16; Temp 98.1(O); Pulse Ox 98% on R/A; Pain 0/10; sew 23:01 BP 162 / 86; Pulse 77; Resp 16; Temp 98.6(TE); Pulse Ox 98% on R/A; Pain 0/10; sew 18:26 Body Mass Index 27.27 (61.23 kg, 149.86 cm) gr2 MDM: 18:31 ECG WITH READING ER PHYS+CARDIAG ordered. EDMS 22:00 LORazepam 0.5 mg PO once ordered. mo1 22:01 CBC with Diff Ordered. EDMS 22:01 BMP Ordered. EDMS 22:01 Magnesium Level Ordered. EDMS 22:01 Chest, 2 View (pa\E\lat) Ordered. EDHI 22:28 [facility] Payment Agreement was scanned into [employer] and attached to record. [facility] : Financial registration complete. gjb 22:56 BMP Reviewed. mo1 22:56 CBC with Diff Reviewed. mo1 22:56 Magnesium Level Reviewed. mo1 10/01 15:48 ECG/EKG was scanned into [employer] and attached to record. kf3 17:58 T-Sheet-- Draft Copy was scanned into [employer] and attached to record. klr Administered Medications: 09/30 22:16 Drug: LORazepam 0.5 mg [lorazepam 1 mg tablet (0.5 tabs)] Route: PO; jf3 Signatures: Dispatcher [employer] EDMS Mason Laureano RN RN cz Robie, Kathleen, RN RN kr3 Júnior Aiken, Reg Reg kf3 José Miguel Herman PA PA Idania Chambers [facility] Tonya Mcneil Justin RN jf3 The chart was reviewed and I authenticate all verbal orders and agree with the evaluation and treatment provided.Attachments: 22:28 [facility] Payment Agreement [facility] 10/01 15:48 ECG/EKG kf3 17:58 T-Sheet-- Draft Copy klr Chart Complete MTDD
--- NOTE | 2016-10-03 00:14 | EDDOCDS ---
Physician Documentation [facility] Name: Prabha Aquino Age: 36 yrs Sex: Female : 1980 Arrival Date: 09/30/2016 Time: 18:24 Bed TR8 Private MD: NO PRIMARY PHYSICIAN, . Disposition: 09/30/16 23:00 Discharged to Home/Self Care. Impression: Palpitations, Anxiety disorder, unspecified. - Condition is Stable. - Discharge Instructions: Panic Attacks, Palpitations. - Medication Reconciliation, Local Pharmacy Hours form. - Follow up: [facility]; When: Call to arrange an appointment; Reason: Recheck today's complaints, Continuance of care. Follow up: Bennett Loera MD; When: Call to arrange an appointment; Reason: Recheck today's complaints, Continuance of care. - Problem is an ongoing problem. - Symptoms are resolved. Historical: - Allergies: IV Dye; Narcotics (myasthenia gravis); Nitrofurantoin Macrocrystal (Rash); PENICILLINS (Hives); SULFA (SULFONAMIDES)breathing difficulty; - Home Meds: 1. albuterol sulfate 90 mcg/actuation Inhl HFAA 2 puffs as needed 2. Mestinon 60 mg Oral tab 1 tab every 4 hours for myasthenia gravis (Last dose: 09/30/2016) 3. Motrin Oral 600 mg as needed 4. potassium chloride 20 mEq Oral pack 1 tab once daily (Last dose: 09/29/2016) 5. IV Ig every other week - PMHx: Asthma; Gall Bladder Disease; Kidney stones; Migraine Headaches; myasthenia gravis; - PSHx: D & C; Cholecystectomy; Thyroid Surgery; - Social history: Smoking status: Patient uses tobacco products, current every day smoker. No barriers to communication noted, The patient speaks fluent Central African, Speaks appropriately for age. - Family history: Not pertinent. - : The pt / caregiver states he / she is not on anticoagulants. Home medication list is obtained from the patient, [employer] import data. - Exposure Risk Screening:: None identified. 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 11 in. (149.86 cm) (R); Pain 2/10; 21:27 BP 150 / 94; Pulse 83; Resp 16; Temp 98.1(O); Pulse Ox 98% on R/A; Pain 0/10; sew 23:01 BP 162 / 86; Pulse 77; Resp 16; Temp 98.6(TE); Pulse Ox 98% on R/A; Pain 0/10; sew 18:26 Body Mass Index 27.27 (61.23 kg, 149.86 cm) gr2 MDM: 18:31 ECG WITH READING ER PHYS+CARDIAG ordered. EDMS 22:00 LORazepam 0.5 mg PO once ordered. mo1 22:01 CBC with Diff Ordered. EDMS 22:01 BMP Ordered. EDMS 22:01 Magnesium Level Ordered. EDMS 22:01 Chest, 2 View (pa\E\lat) Ordered. EDAK 22:28 [facility] Payment Agreement was scanned into [employer] and attached to record. [facility] : Financial registration complete. gjb 22:56 BMP Reviewed. mo1 22:56 CBC with Diff Reviewed. mo1 22:56 Magnesium Level Reviewed. mo1 10/01 15:48 ECG/EKG was scanned into [employer] and attached to record. kf3 17:58 T-Sheet-- Draft Copy was scanned into [employer] and attached to record. klr Administered Medications: 09/30 22:16 Drug: LORazepam 0.5 mg [lorazepam 1 mg tablet (0.5 tabs)] Route: PO; jf3 Signatures: Dispatcher [employer] EDMS Mason Laureano RN RN cz Robie, Kathleen, RN RN kr3 Júnior Aiken, Reg Reg kf3 José Miguel Herman PA PA Idania Chambers [facility] Tonya Mcneil Justin RN jf3 The chart was reviewed and I authenticate all verbal orders and agree with the evaluation and treatment provided.Attachments: 22:28 [facility] Payment Agreement [facility] 10/01 15:48 ECG/EKG kf3 17:58 T-Sheet-- Draft Copy klr Chart Complete MTDD
--- NOTE | 2016-10-03 00:15 | EDDOCDS ---
Nurse's Notes [facility] Name: Karel Aquino Age: 36 yrs Sex: Female : 1980 Arrival Date: 09/30/2016 Time: 18:24 Bed TR8 Private MD: NO PRIMARY PHYSICIAN, . Diagnosis: Palpitations;Anxiety disorder, unspecified Presentation: 09/30 18:30 Presenting complaint: Patient states: began having a shaky chest with palpitations 1 kr3 day ago. symptoms are intermittent and patient reports has increase of anxiety. Adult Sepsis Screening: The patient does not have new or worsening altered mentation. Patient's respiratory rate is less than 22. Systolic blood pressure is greater than 100. Patient has a qSOFA score of 0- Negative Sepsis Screen. Suicide/Homicide risk assessment- the patient denies having any suicidal and/or homicidal ideations and does not present with any other emotional, behavioral or mental health complaints. Status: Patient is not a director of therapy services or dependent. Transition of care: patient was not received from another setting of care. 18:30 Acuity: GISELE Level 3 kr3 18:30 Method Of Arrival: Walkin/Carried/Asstd kr3 Triage Assessment: 18:33 General: Appears in no apparent distress, comfortable, Behavior is cooperative. Pain: kr3 Location: chest Pain currently is 2 out of 10 on a pain scale. Quality of pain is described as discomfort. HIV screening NA for this visit Offered previously. Cardiovascular: Reports palpitations last less than 1 minute and is unsure how frequent she feels them. Respiratory: Reports when has heart palpitations feels like breath goes away. Derm: Skin is pink, warm & dry. MATH COACH: 18:33 LMP 09/27/2016 kr3 Historical: - Allergies: IV Dye; Narcotics (myasthenia gravis); Nitrofurantoin Macrocrystal (Rash); PENICILLINS (Hives); SULFA (SULFONAMIDES)breathing difficulty; - Home Meds: 1. albuterol sulfate 90 mcg/actuation Inhl HFAA 2 puffs as needed 2. Mestinon 60 mg Oral tab 1 tab every 4 hours for myasthenia gravis (Last dose: 09/30/2016) 3. Motrin Oral 600 mg as needed 4. potassium chloride 20 mEq Oral pack 1 tab once daily (Last dose: 09/29/2016) 5. IV Ig every other week - PMHx: Asthma; Gall Bladder Disease; Kidney stones; Migraine Headaches; myasthenia gravis; - PSHx: D & C; Cholecystectomy; Thyroid Surgery; - Social history: Smoking status: Patient uses tobacco products, current every day smoker. No barriers to communication noted, The patient speaks fluent Mongolian, Speaks appropriately for age. - Family history: Not pertinent. - : The pt / caregiver states he / she is not on anticoagulants. Home medication list is obtained from the patient, [employer] import data. - Exposure Risk Screening:: None identified. Screenin:12 Screening information is obtained from the patient. Fall risk: No risks identified. cz Assistance ADL's: requires no assistance with activities of daily living. Abuse/DV Screen: The patient / caregiver reports he/she is: not in a situation that causes fear, pain or injury. Nutritional screening: No deficits noted. home support is adequate. Assessment: 23:12 Reassessment: Patient appears in no apparent distress at this time. Patient states cz symptoms have improved. Vital Signs: 18:26 BP 167 / 88; Pulse 86; Resp 18 S; Temp 98.0(O); Pulse Ox 100% on R/A; Weight 61.23 kg gr2 (M); Height 4 ft. 11 in. (149.86 cm) (R); Pain 2/10; 21:27 BP 150 / 94; Pulse 83; Resp 16; Temp 98.1(O); Pulse Ox 98% on R/A; Pain 0/10; sew 23:01 BP 162 / 86; Pulse 77; Resp 16; Temp 98.6(TE); Pulse Ox 98% on R/A; Pain 0/10; sew 18:26 Body Mass Index 27.27 (61.23 kg, 149.86 cm) gr2 Vitals: 18:26 Log In Time: September 30, 2016 at 18:26. gr2 18:28 RN notified that patient meets Red Flag criteria. gr2 ED Course: 18:25 Patient visited by Alondra Judge. gr2 18:25 Patient moved to Waiting gr2 18:26 NO PRIMARY PHYSICIAN, . is Private Physician. gr2 18:27 Patient visited by Alondra Judge. gr2 18:28 Patient visited by Alondra Judge. gr2 18:28 Patient moved to Pre RCE gr2 18:30 Patient moved to PR2 / 26 sew 18:32 Triage Initiated kr3 18:41 Patient visited by Aby Quach. sew 18:41 Patient moved to Pre RCE sew 18:41 EKG done. (by ED staff). Reviewed by Regan Gibson MD. sew 21:19 Patient moved to Triage 2 cz 21:28 Patient visited by Aby Quach. sew 21:43 José Miguel Herman PA is PHCP. mo1 21:43 Blayne Gutiérrez DO is Attending Physician. mo1 21:54 Patient visited by José Miguel Herman PA. mo1 22:04 Patient moved to Radiology cz 22:10 Patient moved to Triage 2 cz 22:16 Patient moved to TR2 cz 22:16 Magnesium Level Sent. sew 22:16 BMP Sent. sew 22:16 CBC with Diff Sent. sew 22:16 Labs drawn. (by ED staff). Sent per order to lab. sew 22:17 Patient visited by Aby Quach. sew 22:27 Patient name changed from Karel\S\Mary\S\Sipos\S\ to Karel\S\J\S\Sipos. EDMS 22:28 [facility] Payment Agreement was scanned into [employer] and attached to record. gjb 22:57 Patient moved to PR2 / 26 cz 23:00 [facility] is Referral Physician. mo1 23:00 Bennett Loera MD is Referral Physician. mo1 23:02 Patient visited by Aby Quach. sew 23:07 Patient moved to TR8 cz 23:12 The patient / caregiver is instructed regarding the plan of care and ED course. cz 23:12 No IV's were initiated during this patient's visit. No procedures done that require cz assistance. 10/01 13:42 EKG-ADULT Returned. EDMS 15:48 ECG/EKG was scanned into [employer] and attached to record. kf3 16:49 Chest, 2 View (pa\E\lat) Returned. EDMS 17:58 T-Sheet-- Draft Copy was scanned into [employer] and attached to record. klr Administered Medications: 09/30 22:16 Drug: LORazepam 0.5 mg [lorazepam 1 mg tablet (0.5 tabs)] Route: PO; jf3 Order Results: Lab Order: CBC with Diff; SPEC'M 09/30/16 22:15 Test: WHITE BLOOD COUNT; Value: 9.0; Range: 4.0-10.0; Units: K/mm3; Status: F Test: RED BLOOD COUNT; Value: 4.52; Range: 4.00-5.40; Units: M/mm3; Status: F Test: HEMOGLOBIN; Value: 14.3; Range: 12.0-16.0; Units: g/dl; Status: F Test: HEMATOCRIT; Value: 43.4; Range: 36.0-47.0; Units: %; Status: F Test: MEAN CORPUSCULAR VOLUME; Value: 95.9; Range: 80.0-96.0; Units: fl; Status: F Test: MEAN CORPUSCULAR HEMOGLOBIN; Value: 31.7; Range: 27.0-33.0; Units: pg; Status: F Test: MEAN CORPUSCULAR HGB CONC; Value: 33.1; Range: 32.0-36.5; Units: g/dl; Status: F Test: RED CELL DISTRIBUTION WIDTH; Value: 12.9; Range: 11.5-14.5; Units: %; Status: F Test: PLATELET COUNT, AUTOMATED; Value: 367; Range: 150-450; Units: k/mm3; Status: F Test: NEUTROPHILS %; Value: 68.0; Range: 36.0-66.0; Abnormal: Above high normal; Units: %; Status: F Test: LYMPH %; Value: 22.9; Range: 24.0-44.0; Abnormal: Below low normal; Units: %; Status: F Test: MONO %; Value: 4.2; Range: 0.0-5.0; Units: %; Status: F Test: EOS %; Value: 2.2; Range: 0.0-3.0; Units: %; Status: F Test: BASO %; Value: 1.4; Range: 0.0-1.0; Abnormal: Above high normal; Units: %; Status: F Test: LARGE UNSTAINED CELL %; Value: 1.2; Range: 0.0-4.0; Units: %; Status: F Test: NEUTROPHILS #; Value: 6.2; Range: 1.8-7.7; Units: K/mm3; Status: F Test: LYMPH #; Value: 2.2; Range: 1.5-4.5; Units: K/mm3; Status: F Test: MONO #; Value: 0.4; Range: 0.0-0.8; Units: K/mm3; Status: F Test: EOS #; Value: 0.2; Range: 0.0-0.50; Units: K/mm3; Status: F Test: BASO #; Value: 0.1; Range: 0.0-0.2; Units: K/mm3; Status: F Test: LARGE UNSTAINED CELL #; Value: 0.1; Range: 0.0-0.4; Units: K/mm3; Status: F Lab Order: [facility]; SPEC'M 09/30/16 22:15 Test: GLUCOSE, FASTING; Value: 98; Range: 70-105; Units: MG/DL; Status: F Test: BLOOD UREA NITROGEN; Value: 5; Range: 7-18; Abnormal: Below low normal; Units: MG/DL; Status: F Test: CREATININE FOR GFR; Value: 0.58; Range: 0.55-1.02; Units: MG/DL; Status: F Test: GLOMERULAR FILTRATION RATE; Value: > 60.0; Range: >60; Status: F Test: SODIUM LEVEL; Value: 141; Range: 136-145; Units: MEQ/L; Status: F Test: POTASSIUM SERUM; Value: 3.4; Range: 3.5-5.1; Abnormal: Below low normal; Units: MEQ/L; Status: F Test: CHLORIDE LEVEL; Value: 109; Range: 98-107; Abnormal: Above high normal; Units: MEQ/L; Status: F Test: CARBON DIOXIDE LEVEL; Value: 28; Range: 21-32; Units: MEQ/L; Status: F Test: ANION GAP; Value: 4; Range: 8-16; Abnormal: Below low normal; Units: MEQ/L; Status: F Test: CALCIUM LEVEL; Value: 8.5; Range: 8.5-10.1; Units: MG/DL; Status: F Test Note: ; Units are mL/min/1.73 m2 Chronic Kidney Disease Staging per NKF: Stage I & II GFR >=60 Normal to Mildly Decreased Stage III GFR 30-59 Moderately Decreased Stage IV GFR 15-29 Severely Decreased Stage V GFR <15 Very Little GFR Left ESRD GFR <15 on BLUNGER MACHINE OPERATOR Lab Order: Magnesium Level; DEENA 09/30/16 22:15 Test: MAGNESIUM LEVEL; Value: 1.8; Range: 1.8-2.4; Units: MG/DL; Status: F Radiology Order: EKG-ADULT Test: EKG-ADULT REASON FOR EXAMINATION: palpitations; Stationary ECG Study; [facility] - ED; ; Test Date: 2016-09-30; Pat Name: KAREL AQUINO Department:; Room: -; Gender: F 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 The cardiac size is normal; ; The anushka, mediastinum, and bony thorax are unremarkable.; ; Impression:; ; Negative PA and lateral chest. There is no interval change.; ; ; Signed by; Balbir Pulido MD 10/01/2016 04:07 P; Outcome: 23:00 Discharge ordered by Provider. mo1 23:12 Discharge Assessment: Patient awake, alert and oriented x 3. No cognitive and/or cz functional deficits noted. Patient verbalized understanding of disposition instructions. patient administered narcotics - no. The following High Risk Discharge criteria are identified: None. Discharged to home ambulatory, with family. Condition: stable. Discharge instructions given to patient, Instructed on discharge instructions, follow up and referral plans. Demonstrated understanding of instructions, Pt was receptive of discharge instructions/ teaching. No special radiology studies were completed. Property :Personal belongings accompany Pt. 23:14 Patient left the ED. glen Signatures: Dispatcher [employer] EDMason Vazquez, MALIHA RN Kristi Breen,RN RN kr3 Júnior Aiken, Reg Reg kf3 Main, Alondra Pleitez gr2 José Miguel Herman PA PA mo1 Luke Thompson,RN RN sarah beth3 Idania Conde Kathie klr Chart Complete MTDD
== END 2016-09-30 23:14 | disposition home or self-care (01) ==
LOC: M ED 18:24
DX: R00.2 Palpitations (principal); J45.909 Unspecified asthma, uncomplicated; E87.6 Hypokalemia; G43.909 Migraine, unspecified, not intractable, without status migrainosus; K82.9 Disease of gallbladder, unspecified; Z87.442 Personal history of urinary calculi; G70.00 Myasthenia gravis without (acute) exacerbation; Z79.899 Other long term (current) drug therapy; Z88.0 Allergy status to penicillin; Z88.2 Allergy status to sulfonamides; Z88.5 Allergy status to narcotic agent; Z88.8 Allergy status to other drugs, medicaments and biological substances; Z91.041 Radiographic dye allergy status; F17.210 Nicotine dependence, cigarettes, uncomplicated

== ENCOUNTER 2016-10-13 07:11 | Emergency (ER) | payer OTHER ==
--- NOTE | 2016-10-13 07:49 | EDDOCDS ---
Nurse's Notes [facility] Name: Prabha Aquino Age: 36 yrs Sex: Female : 1980 Arrival Date: 10/13/2016 Time: 07:11 Bed I2 / M2 Private MD: Diagnosis: Superficial injury of head-closed Presentation: 10/13 07:19 Presenting complaint: Patient states: approx 2 hours ago struck head on arm rest of jjr couch after standing on couch then went to sit, pain to right side of head denies LOC. Adult Sepsis Screening: The patient does not have new or worsening altered mentation. Patient's respiratory rate is less than 22. Systolic blood pressure is greater than 100. Patient has a qSOFA score of 0- Negative Sepsis Screen. Suicide/Homicide risk assessment- the patient denies having any suicidal and/or homicidal ideations and does not present with any other emotional, behavioral or mental health complaints. Status: Patient is not a support services specialist or dependent. Transition of care: patient was not received from another setting of care. 07:19 Acuity: GISELE Level 4 jjr 07:19 Method Of Arrival: Walkin/Carried/Asstd jjr Triage Assessment: 07:25 General: Appears in no apparent distress, Behavior is appropriate for age. Pain: jjr Location: right temporal area. HIV screening NA for this visit Offered previously. Musculoskeletal: No deficits noted. SAP BASIS CONSULTANT: 07:23 LMP 09/24/2016 jjr Historical: - Allergies: IV Dye (Anaphylaxis); Narcotics (myasthenia gravis); Nitrofurantoin Macrocrystal (Rash); PENICILLINS (Hives); SULFA (SULFONAMIDES)breathing difficulty; pt has 2 page list of contraindicated meds; - Home Meds: 1. albuterol sulfate 90 mcg/actuation Inhl HFAA 2 puffs as needed 2. IV Ig every other week 3. Mestinon 60 mg Oral tab 1 tab every 4 hours for myasthenia gravis 4. potassium chloride 20 mEq Oral pack 1 tab once daily - PMHx: Asthma; Kidney stones; Migraine Headaches; myasthenia gravis; - PSHx: D & C; Cholecystectomy; thymectomy; - Social history: Smoking status: Patient uses tobacco products, current every day smoker. No barriers to communication noted, The patient speaks fluent Congolese. - Family history: Not pertinent. - : The pt / caregiver states he / she is not on anticoagulants. Home medication list is obtained from the patient. - Exposure Risk Screening:: None identified. Screenin:47 Screening information is obtained from the patient. Fall risk: No risks identified. srm Assistance ADL's: requires no assistance with activities of daily living. Abuse/DV Screen: The patient / caregiver reports he/she is: not in a situation that causes fear, pain or injury. Nutritional screening: No deficits noted. Advance Directives: There is no active DNR order. home support is adequate. Assessment: 07:47 General: Appears in no apparent distress, Behavior is appropriate for age, cooperative. srm Neurological: Level of Consciousness is awake, alert, Oriented to person, place, time, Manager Interventional are equal bilaterally Moves all extremities. Full function Gait is steady, Speech is normal, Facial symmetry appears normal, Pupils are PERRLA. Respiratory: No deficits noted. GI: No deficits noted. Musculoskeletal: Circulation, motion, and sensation intact. Vital Signs: 07:23 BP 141 / 91; Pulse 88; Resp 18; Temp 98.4(O); Pulse Ox 97% on R/A; Weight 61.23 kg (R); jjr Height 4 ft. 11 in. (149.86 cm) (R); Pain 3/10; 07:23 Body Mass Index 27.27 (61.23 kg, 149.86 cm) [facility] Vitals: 07:23 Log In Time: October 13, 2016 at 07:13. r ED Course: 07:13 Patient visited by Terrie Summers Reg. hs2 07:13 Patient moved to Waiting hs2 07:21 Triage Initiated jjr 07:25 Patient moved to I2 / M2 jjr 07:28 [facility] ar2 07:28 Jesus Roy MD is Attending Physician. ar2 07:30 Patient visited by Gary Bradshaw PA-C. ar2 07:47 The patient / caregiver is instructed regarding the plan of care and ED course. Patient srm has correct armband on for positive identification. 07:47 No IV's were initiated during this patient's visit. No procedures done that require srm assistance. Order Results: There are currently no results for this order. Outcome: 07:40 Discharge ordered by Provider. ar2 07:47 Discharge Assessment: Patient awake, alert and oriented x 3. No cognitive and/or srm functional deficits noted. Patient verbalized understanding of disposition instructions. patient administered narcotics - no. The following High Risk Discharge criteria are identified: None. Discharged to home ambulatory. Condition: good Condition: stable. Discharge instructions given to patient, Instructed on discharge instructions, follow up and referral plans. Demonstrated understanding of instructions, Pt was receptive of discharge instructions/ teaching. No special radiology studies were completed. Property sent home with patient. 07:48 Patient left the ED. srm Signatures: Evy Walters RN RN srm Maria L Judge RN RN Gary Castañeda, PA-Catarino PA-Catarino ar2 Terrie Summers, Reg Reg hs2 MTDD
--- NOTE | 2016-10-13 07:49 | EDDOCDS ---
Physician Documentation [facility] Name: Prabha Aquino Age: 36 yrs Sex: Female : 1980 Arrival Date: 10/13/2016 Time: 07:11 Bed I2 / M2 Private MD: Disposition: 10/13/16 07:40 Discharged to Home/Self Care. Impression: Superficial injury of head - closed. - Condition is Stable. - Discharge Instructions: Head Injury, Adult. - Medication Reconciliation, Local Pharmacy Hours form. - Follow up: Emergency Department; When: As needed; Reason: Worsening of conditions, severe headache, vomiting. - Problem is new. - Symptoms are unchanged. Historical: - Allergies: IV Dye (Anaphylaxis); Narcotics (myasthenia gravis); Nitrofurantoin Macrocrystal (Rash); PENICILLINS (Hives); SULFA (SULFONAMIDES)breathing difficulty; pt has 2 page list of contraindicated meds; - Home Meds: 1. albuterol sulfate 90 mcg/actuation Inhl HFAA 2 puffs as needed 2. IV Ig every other week 3. Mestinon 60 mg Oral tab 1 tab every 4 hours for myasthenia gravis 4. potassium chloride 20 mEq Oral pack 1 tab once daily - PMHx: Asthma; Kidney stones; Migraine Headaches; myasthenia gravis; - PSHx: D & C; Cholecystectomy; thymectomy; - Social history: Smoking status: Patient uses tobacco products, current every day smoker. No barriers to communication noted, The patient speaks fluent Burundian. - Family history: Not pertinent. - : The pt / caregiver states he / she is not on anticoagulants. Home medication list is obtained from the patient. - Exposure Risk Screening:: None identified. 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 11 in. (149.86 cm) (R); Pain 3/10; 07:23 Body Mass Index 27.27 (61.23 kg, 149.86 cm) jjr MDM: 07:40 Financial registration complete. lg Signatures: Evy Walters, RN RN Elise Arrieta, Reg Reg Maria L Carey, MALIHA RN Gary Castañeda PA-C PA-C ar2 MTDD
--- NOTE | 2016-10-15 08:49 | EDDOCDS ---
Nurse's Notes [facility] Name: Prabha Aquino Age: 36 yrs Sex: Female : 1980 Arrival Date: 10/13/2016 Time: 07:11 Bed I2 / M2 Private MD: Diagnosis: Superficial injury of head-closed Presentation: 10/13 07:19 Presenting complaint: Patient states: approx 2 hours ago struck head on arm rest of jjr couch after standing on couch then went to sit, pain to right side of head denies LOC. Adult Sepsis Screening: The patient does not have new or worsening altered mentation. Patient's respiratory rate is less than 22. Systolic blood pressure is greater than 100. Patient has a qSOFA score of 0- Negative Sepsis Screen. Suicide/Homicide risk assessment- the patient denies having any suicidal and/or homicidal ideations and does not present with any other emotional, behavioral or mental health complaints. Status: Patient is not a director of student services or dependent. Transition of care: patient was not received from another setting of care. 07:19 Acuity: GISELE Level 4 jjr 07:19 Method Of Arrival: Walkin/Carried/Asstd jjr Triage Assessment: 07:25 General: Appears in no apparent distress, Behavior is appropriate for age. Pain: jjr Location: right temporal area. HIV screening NA for this visit Offered previously. Musculoskeletal: No deficits noted. 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 albuterol sulfate 90 mcg/actuation Inhl HFAA 2 puffs as needed 2. IV Ig every other week 3. Mestinon 60 mg Oral tab 1 tab every 4 hours for myasthenia gravis 4. potassium chloride 20 mEq Oral pack 1 tab once daily - PMHx: Asthma; Kidney stones; Migraine Headaches; myasthenia gravis; - PSHx: D & C; Cholecystectomy; thymectomy; - Social history: Smoking status: Patient uses tobacco products, current every day smoker. No barriers to communication noted, The patient speaks fluent Mongolian. - Family history: Not pertinent. - : The pt / caregiver states he / she is not on anticoagulants. Home medication list is obtained from the patient. - Exposure Risk Screening:: None identified. Screenin:47 Screening information is obtained from the patient. Fall risk: No risks identified. srm Assistance ADL's: requires no assistance with activities of daily living. Abuse/DV Screen: The patient / caregiver reports he/she is: not in a situation that causes fear, pain or injury. Nutritional screening: No deficits noted. Advance Directives: There is no active DNR order. home support is adequate. Assessment: 07:47 General: Appears in no apparent distress, Behavior is appropriate for age, cooperative. srm Neurological: Level of Consciousness is awake, alert, Oriented to person, place, time, Assembler Crimper are equal bilaterally Moves all extremities. Full function Gait is steady, Speech is normal, Facial symmetry appears normal, Pupils are PERRLA. Respiratory: No deficits noted. GI: No deficits noted. Musculoskeletal: Circulation, motion, and sensation intact. Vital Signs: 07:23 BP 141 / 91; Pulse 88; Resp 18; Temp 98.4(O); Pulse Ox 97% on R/A; Weight 61.23 kg (R); jjr Height 4 ft. 11 in. (149.86 cm) (R); Pain 3/10; 07:23 Body Mass Index 27.27 (61.23 kg, 149.86 cm) [facility] Vitals: 07:23 Log In Time: October 13, 2016 at 07:13. jr ED Course: 07:13 Patient visited by Terrie Summers Reg. hs2 07:13 Patient moved to Waiting hs2 07:21 Triage Initiated jjr 07:25 Patient moved to I2 / M2 jjr 07:28 Gary Bradshaw [facility]-C [facility]. ar2 07:28 Jesus Roy MD is Attending Physician. ar2 07:30 Patient visited by Gary Bradshaw PA-C. ar2 07:47 The patient / caregiver is instructed regarding the plan of care and ED course. Patient srm has correct armband on for positive identification. 07:47 No IV's were initiated during this patient's visit. No procedures done that require srm assistance. 08:11 [facility] Payment Agreement was scanned into [employer] and attached to record. lg 15:22 T-Sheet-- Draft Copy was scanned into [employer] and attached to record. gb Order Results: There are currently no results for this order. Outcome: 07:40 Discharge ordered by Provider. ar2 07:47 Discharge Assessment: Patient awake, alert and oriented x 3. No cognitive and/or srm functional deficits noted. Patient verbalized understanding of disposition instructions. patient administered narcotics - no. The following High Risk Discharge criteria are identified: None. Discharged to home ambulatory. Condition: good Condition: stable. Discharge instructions given to patient, Instructed on discharge instructions, follow up and referral plans. Demonstrated understanding of instructions, Pt was receptive of discharge instructions/ teaching. No special radiology studies were completed. Property sent home with patient. 07:48 Patient left the ED. srm Signatures: Evy Walters, RN RN srm Lona Langley, Reg Reg gb Elise Miranda, Reg Reg lg Maria L Judge, RN RN Gary Castañeda PA-C PA-C ar2 Terrie Summers, Reg Reg hs2 Chart Complete MTDD
--- NOTE | 2016-10-15 08:49 | EDDOCDS ---
Physician Documentation [facility] Name: Prabha Aquino Age: 36 yrs Sex: Female : 1980 Arrival Date: 10/13/2016 Time: 07:11 Bed I2 / M2 Private MD: Disposition: 10/13/16 07:40 Discharged to Home/Self Care. Impression: Superficial injury of head - closed. - Condition is Stable. - Discharge Instructions: Head Injury, Adult. - Medication Reconciliation, Local Pharmacy Hours form. - Follow up: Emergency Department; When: As needed; Reason: Worsening of conditions, severe headache, vomiting. - Problem is new. - Symptoms are unchanged. Historical: - Allergies: IV Dye (Anaphylaxis); Narcotics (myasthenia gravis); Nitrofurantoin Macrocrystal (Rash); PENICILLINS (Hives); SULFA (SULFONAMIDES)breathing difficulty; pt has 2 page list of contraindicated meds; - Home Meds: 1. albuterol sulfate 90 mcg/actuation Inhl HFAA 2 puffs as needed 2. IV Ig every other week 3. Mestinon 60 mg Oral tab 1 tab every 4 hours for myasthenia gravis 4. potassium chloride 20 mEq Oral pack 1 tab once daily - PMHx: Asthma; Kidney stones; Migraine Headaches; myasthenia gravis; - PSHx: D & C; Cholecystectomy; thymectomy; - Social history: Smoking status: Patient uses tobacco products, current every day smoker. No barriers to communication noted, The patient speaks fluent Citizen Of [place]. - Family history: Not pertinent. - : The pt / caregiver states he / she is not on anticoagulants. Home medication list is obtained from the patient. - Exposure Risk Screening:: None identified. 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 11 in. (149.86 cm) (R); Pain 3/10; 07:23 Body Mass Index 27.27 (61.23 kg, 149.86 cm) jjr MDM: 07:40 Financial registration complete. 08:11 [facility] Payment Agreement was scanned into [employer] and attached to record. lg 15:22 T-Sheet-- Draft Copy was scanned into [employer] and attached to record. gb Signatures: Evy Walters RN RN srm Barnhardt, Gloria, Reg Reg gb RubenElise, Reg Reg lg Maria L Judge RN RN jjr Robertshaw, Aaron, PA-C PA-C ar2 The chart was reviewed and I authenticate all verbal orders and agree with the evaluation and treatment provided.Attachments: 08:11 [facility] Payment Agreement lg 15:22 T-Sheet-- Draft Copy gb Chart Complete MTDD
--- NOTE | 2016-10-15 08:49 | EDDOCDS ---
Physician Documentation [facility] Name: Prabha Aquino Age: 36 yrs Sex: Female : 1980 Arrival Date: 10/13/2016 Time: 07:11 Bed I2 / M2 Private MD: Disposition: 10/13/16 07:40 Discharged to Home/Self Care. Impression: Superficial injury of head - closed. - Condition is Stable. - Discharge Instructions: Head Injury, Adult. - Medication Reconciliation, Local Pharmacy Hours form. - Follow up: Emergency Department; When: As needed; Reason: Worsening of conditions, severe headache, vomiting. - Problem is new. - Symptoms are unchanged. Historical: - Allergies: IV Dye (Anaphylaxis); Narcotics (myasthenia gravis); Nitrofurantoin Macrocrystal (Rash); PENICILLINS (Hives); SULFA (SULFONAMIDES)breathing difficulty; pt has 2 page list of contraindicated meds; - Home Meds: 1. albuterol sulfate 90 mcg/actuation Inhl HFAA 2 puffs as needed 2. IV Ig every other week 3. Mestinon 60 mg Oral tab 1 tab every 4 hours for myasthenia gravis 4. potassium chloride 20 mEq Oral pack 1 tab once daily - PMHx: Asthma; Kidney stones; Migraine Headaches; myasthenia gravis; - PSHx: D & C; Cholecystectomy; thymectomy; - Social history: Smoking status: Patient uses tobacco products, current every day smoker. No barriers to communication noted, The patient speaks fluent New Zealander. - Family history: Not pertinent. - : The pt / caregiver states he / she is not on anticoagulants. Home medication list is obtained from the patient. - Exposure Risk Screening:: None identified. 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 11 in. (149.86 cm) (R); Pain 3/10; 07:23 Body Mass Index 27.27 (61.23 kg, 149.86 cm) jjr MDM: 07:40 Financial registration complete. 08:11 [facility] Payment Agreement was scanned into [employer] and attached to record. lg 15:22 T-Sheet-- Draft Copy was scanned into [employer] and attached to record. gb Signatures: Evy Walters RN RN srm Barnhardt, Gloria, Reg Reg gb RubenElise, Reg Reg lg Maria L Judge RN RN jjr Robertshaw, Aaron, PA-C PA-C ar2 The chart was reviewed and I authenticate all verbal orders and agree with the evaluation and treatment provided.Attachments: 08:11 [facility]ES [facility] Payment Agreement lg 15:22 T-Sheet-- Draft Copy gb Chart Complete MTDD
== END 2016-10-13 07:48 | disposition home or self-care (01) ==
LOC: M ED 07:11
DX: S00.90XA Unspecified superficial injury of unspecified part of head, initial encounter (principal); W22.8XXA Striking against or struck by other objects, initial encounter; Y92.019 Unspecified place in single-family (private) house as the place of occurrence of the external cause; Y93.89 Activity, other specified; Y99.8 Other external cause status; J45.909 Unspecified asthma, uncomplicated; G43.909 Migraine, unspecified, not intractable, without status migrainosus; G70.00 Myasthenia gravis without (acute) exacerbation; Z87.442 Personal history of urinary calculi; F17.210 Nicotine dependence, cigarettes, uncomplicated; Z79.899 Other long term (current) drug therapy; Z91.041 Radiographic dye allergy status; Z88.5 Allergy status to narcotic agent; Z88.8 Allergy status to other drugs, medicaments and biological substances; Z88.0 Allergy status to penicillin; Z88.2 Allergy status to sulfonamides

== ENCOUNTER 2016-10-28 18:28 | Emergency (ER) | payer OTHER ==
--- NOTE | 2016-10-28 19:53 | ECGEPIP ---
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
[2016-10-28] MEDS ORDERED: ALPRAZolam 0.25 MG TAB As Ordered ONE (21:40)
--- NOTE | 2016-10-28 21:45 | EDDOCDS ---
Nurse's Notes [facility] Name: Prabha Aquino Age: 36 yrs Sex: Female : 1980 Arrival Date: 10/28/2016 Time: 18:28 Bed TR7 Private MD: Diagnosis: Palpitations;Anxiety disorder, unspecified Presentation: 10/28 18:34 Presenting complaint: Patient states: has palpitations every day 'for a long time' and kr3 doesn't know if she should have come to ED. Has appointment to cardiology in [place] in November. Reports was seen by Dr Celis but did not like him. Adult Sepsis Screening: The patient does not have new or worsening altered mentation. Patient's respiratory rate is less than 22. Systolic blood pressure is greater than 100. Patient has a qSOFA score of 0- Negative Sepsis Screen. Suicide/Homicide risk assessment- the patient denies having any suicidal and/or homicidal ideations and does not present with any other emotional, behavioral or mental health complaints. Status: Patient is not a housetrailer servicer or dependent. Transition of care: patient was not received from another setting of care. 18:34 Acuity: GISELE Level 3 kr3 18:34 Method Of Arrival: Walkin/Carried/Asstd kr3 Triage Assessment: 18:37 General: Appears comfortable, Behavior is cooperative, Reports anxiety. Pain: Denies kr3 pain. HIV screening NA for this visit Offered previously. Neurological: Level of Consciousness is awake, alert. Respiratory: Respiratory effort is even, unlabored. Derm: Skin is pink, warm & dry. 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 albuterol sulfate 90 mcg/actuation Inhl HFAA 2 puffs as needed 2. Mestinon 60 mg Oral tab 1 tab every 4 hours for myasthenia gravis (Last dose: 10/28/2016 16:00) 3. potassium chloride 20 mEq Oral pack 1 tab once daily (Last dose: 10/28/2016) 4. IV Ig every other week - PMHx: Asthma; Kidney stones; Migraine Headaches; myasthenia gravis; - PSHx: D & C; Cholecystectomy; - Social history: Smoking status: Patient uses tobacco products, current every day smoker. No barriers to communication noted, The patient speaks fluent Nepalese, Speaks appropriately for age. - Family history: Not pertinent. - : The pt / caregiver states he / she is not on anticoagulants. Home medication list is obtained from the patient. - Exposure Risk Screening:: None identified. Screenin:42 Screening information is obtained from the patient. Fall risk: No risks identified. ld5 Assistance ADL's: requires no assistance with activities of daily living. Abuse/DV Screen: The patient / caregiver reports he/she is: not in a situation that causes fear, pain or injury. Nutritional screening: No deficits noted. Advance Directives: Currently, there is no health care proxy. home support is adequate. Assessment: 21:42 General: Appears in no apparent distress, Behavior is anxious, cooperative. Pain: ld5 Denies pain. Neurological: Level of Consciousness is awake, alert. Respiratory: Airway is patent Respiratory effort is even, unlabored. GI: Denies nausea, vomiting. Derm: Skin is dry. Vital Signs: 18:30 BP 164 / 100; Pulse 86; Resp 17; Temp 96.6(T); Pulse Ox 99% ; Weight 61.23 kg (R); lr2 Height 4 ft. 11 in. (149.86 cm) (R); Pain 0/10; 21:14 BP 141 / 94; Pulse 72; Pulse Ox 98% on R/A; ld5 18:30 Body Mass Index 27.26 (61.23 kg, 149.86 cm) lr2 Vitals: 18:30 Log In Time: October 28, 2016 at 18:28. lr2 ED Course: 18:30 Patient visited by Lashay Parry. lr2 18:30 Patient moved to Waiting lr2 18:31 Patient moved to Pre RCE lr2 18:33 Patient moved to PD2 / ct3 18:36 Triage Initiated kr3 18:38 EKG done. (by ED staff). Reviewed by Michelle Livingston MD. ct3 18:41 Patient visited by Alannah Velasquez PCA. ct3 18:42 Patient moved to Pre RCE kr3 19:20 Patient moved to Triage 2 cz 20:06 EKG-ADULT Returned. EDMS 20:43 Patient name changed from Prabha\S\J\S\Sipos\S\ to Prabha\S\Mary\S\Sipos. EDMS 20:43 [facility] Payment Agreement was scanned into [employer] and attached to record. gb 21:09 More[facility]intero [facility]-C [facility]. dt4 21:09 Rafael Mays DO is Attending Physician. dt4 21:09 Patient visited by Morelia Quintero PA-C. dt4 21:42 Patient moved to TR7 ct3 21:42 The patient / caregiver is instructed regarding the plan of care and ED course. ld5 21:42 No IV's were initiated during this patient's visit. No procedures done that require ld5 assistance. 21:44 Patient visited by Lsahay Williamson RN. ld5 Administered Medications: 21:42 Drug: ALPRAZolam 0.25 mg [alprazolam 0.25 mg tablet (1 tabs)] Route: PO; ld5 21:42 Follow up: Response: Med's dispensed home ld5 Order Results: Radiology Order: EKG-ADULT Test: EKG-ADULT REASON FOR EXAMINATION: palpitations; Stationary ECG Study; [facility] - ED; ; Test Date: 2016-10-28; Pat Name: PRABHA AQUINO Department:; Room: -; Gender: F Manager Advertising: ct; : 1980 Requested By: MICHELLE Kim; Order Number: [id number] Reading MD: Aby Quach; Measurements; Intervals [place]; Rate: 86 P: 41; SC: 188 QRS: 63; QRSD: 97 T: 40; QT: 384; QTc: 461; Interpretive Statements; SINUS RHYTHM; NONSPECIFIC T-WAVE ABNORMALITY; INCREASED RATE 09/30/16; Electronically Signed On 10-28-2016 19:52:44 EST by Aby Quach; Outcome: 21:39 Discharge ordered by Provider. dt4 21:42 Discharge Assessment: Patient awake, alert and oriented x 3. No cognitive and/or ld5 functional deficits noted. Patient verbalized understanding of disposition instructions. patient administered narcotics - no. The following High Risk Discharge criteria are identified: None. Discharged to home ambulatory, with family. Condition: stable. Discharge instructions given to patient, Instructed on discharge instructions, follow up and referral plans. medication usage, Demonstrated understanding of instructions, medications, Pt was receptive of discharge instructions/ teaching. Prescriptions given X 1. No special radiology studies were completed. Property :Personal belongings accompany Pt. 21:44 Patient left the ED. ld5 Signatures: Dispatcher [employer] EDMS Mason Laureano, RN RN cz Lona Langley, Reg Reg gb Kristi Diop RN RN kr3 Lashay Williamson RN RN ld5 Alannah Velasquez, LEARNING COACH LEARNING COACH ct3 Morelia Quintero PA-C PA-C dt4 Lashay Parry lr2 MTDD
--- NOTE | 2016-10-28 21:45 | EDDOCDS ---
Physician Documentation [facility] Name: Prabha Aquino Age: 36 yrs Sex: Female : 1980 Arrival Date: 10/28/2016 Time: 18:28 Bed TR7 Private MD: Disposition: 10/28/16 21:39 Discharged to Home/Self Care. Impression: Palpitations, Anxiety disorder, unspecified. - Condition is Stable. - Discharge Instructions: Panic Attacks, Palpitations. - Prescriptions for Xanax 0.25 mg Oral Tablet - take 1 tablet by ORAL route every 8 hours As needed MDD: 3 tabs; 20 tablet. - Medication Reconciliation, Local Pharmacy Hours form. - Follow up: Emergency Department; When: As needed; Reason: Worsening of conditions. Follow up: Private Physician; When: 4 - 5 days; Reason: Wound/Symptom Recheck, Recheck today's complaints, Continuance of care. - Problem is new. - Symptoms are unchanged. Historical: - Allergies: IV Dye (Anaphylaxis); Narcotics (myasthenia gravis); Nitrofurantoin Macrocrystal (Rash); PENICILLINS (Hives); SULFA (SULFONAMIDES)breathing difficulty; pt has 2 page list of contraindicated meds; - Home Meds: 1. albuterol sulfate 90 mcg/actuation Inhl HFAA 2 puffs as needed 2. Mestinon 60 mg Oral tab 1 tab every 4 hours for myasthenia gravis (Last dose: 10/28/2016 16:00) 3. potassium chloride 20 mEq Oral pack 1 tab once daily (Last dose: 10/28/2016) 4. IV Ig every other week - PMHx: Asthma; Kidney stones; Migraine Headaches; myasthenia gravis; - PSHx: D & C; Cholecystectomy; - Social history: Smoking status: Patient uses tobacco products, current every day smoker. No barriers to communication noted, The patient speaks fluent Cypriot, Speaks appropriately for age. - Family history: Not pertinent. - : The pt / caregiver states he / she is not on anticoagulants. Home medication list is obtained from the patient. - Exposure Risk Screening:: None identified. 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 11 in. (149.86 cm) (R); Pain 0/10; 21:14 BP 141 / 94; Pulse 72; Pulse Ox 98% on R/A; ld5 18:30 Body Mass Index 27.26 (61.23 kg, 149.86 cm) lr2 MDM: 18:33 ECG WITH READING ER PHYS+CARDIAG ordered. EDMS 20:43 [facility] Payment Agreement was scanned into [email or web address] and attached to record. gb 21:12 Recheck B/P ordered. dt4 21:21 Financial registration complete. gb 21:34 ALPRAZolam Tablet 0.25 mg PO once; give to pt to take home, thank you. ordered. dt4 Administered Medications: 21:42 Drug: ALPRAZolam 0.25 mg [alprazolam 0.25 mg tablet (1 tabs)] Route: PO; ld5 21:42 Follow up: Response: Med's dispensed home ld5 Signatures: Dispatcher [employer] EDMS Lona Langley, Reg Reg gb Kristi Diop,RN RN kr3 Lashay WilliamsonRN RN ld5 Morelia Quintero PA-C PA-C dt4 The chart was reviewed and I authenticate all verbal orders and agree with the evaluation and treatment provided.Attachments: 20:43 [facility] Payment Agreement gb MTDD
--- NOTE | 2016-10-30 22:45 | EDDOCDS ---
Physician Documentation [facility] Name: Prabha Aquino Age: 36 yrs Sex: Female : 1980 Arrival Date: 10/28/2016 Time: 18:28 Bed TR7 Private MD: Disposition: 10/28/16 21:39 Discharged to Home/Self Care. Impression: Palpitations, Anxiety disorder, unspecified. - Condition is Stable. - Discharge Instructions: Panic Attacks, Palpitations. - Prescriptions for Xanax 0.25 mg Oral Tablet - take 1 tablet by ORAL route every 8 hours As needed MDD: 3 tabs; 20 tablet. - Medication Reconciliation, Local Pharmacy Hours form. - Follow up: Emergency Department; When: As needed; Reason: Worsening of conditions. Follow up: Private Physician; When: 4 - 5 days; Reason: Wound/Symptom Recheck, Recheck today's complaints, Continuance of care. - Problem is new. - Symptoms are unchanged. Historical: - Allergies: IV Dye (Anaphylaxis); Narcotics (myasthenia gravis); Nitrofurantoin Macrocrystal (Rash); PENICILLINS (Hives); SULFA (SULFONAMIDES)breathing difficulty; pt has 2 page list of contraindicated meds; - Home Meds: 1. albuterol sulfate 90 mcg/actuation Inhl HFAA 2 puffs as needed 2. Mestinon 60 mg Oral tab 1 tab every 4 hours for myasthenia gravis (Last dose: 10/28/2016 16:00) 3. potassium chloride 20 mEq Oral pack 1 tab once daily (Last dose: 10/28/2016) 4. IV Ig every other week - PMHx: Asthma; Kidney stones; Migraine Headaches; myasthenia gravis; - PSHx: D & C; Cholecystectomy; - Social history: Smoking status: Patient uses tobacco products, current every day smoker. No barriers to communication noted, The patient speaks fluent Mozambican, Speaks appropriately for age. - Family history: Not pertinent. - : The pt / caregiver states he / she is not on anticoagulants. Home medication list is obtained from the patient. - Exposure Risk Screening:: None identified. 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 11 in. (149.86 cm) (R); Pain 0/10; 21:14 BP 141 / 94; Pulse 72; Pulse Ox 98% on R/A; ld5 18:30 Body Mass Index 27.26 (61.23 kg, 149.86 cm) lr2 MDM: 18:33 ECG WITH READING ER PHYS+CARDIAG ordered. EDMS 20:43 [facility] [place] was scanned into [employer] and attached to record. gb 21:12 Recheck B/P ordered. dt4 21:21 Financial registration complete. gb 21:34 ALPRAZolam Tablet 0.25 mg PO once; give to pt to take home, thank you. ordered. dt4 23:14 ED course: SPOKE WITH PT AND AT LENGTH REGARDING SYMPTOMS AND WHEN PT SHOULD dt4 COME TO THE ED. 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 DENIES ANY PAIN, SOB, NAUSEA, SWEATING, DIZZINESS/LIGHTHEADEDNESS OR SYNCOPE WITH THESE EPISODES. STATES SHE HAS SEEN DR. PEREZ AND DID NOT LIKE HIS "BEDSIDE MANNER" AND HAS AN APPT WITH CARDIOLOGY IN [place] ON November. ADVISED LOOP RECORDER OR HOLTER MONITOR MIGHT HELP TO FURTHER DIAGNOSE THESE AND THAT SHE SHOULD COME BACK WITH ANY WORSENING/NEW SYMPTOMS, INCLUDING CHEST PAIN, SOB, SYNCOPE, LIGHTHEADEDNESS, NAUSEA, SWEATING. PT AND IN AGREEMENT OF TREATMENT PLAN AND VOICE UNDERSTANDING. . 10/29 12:12 T-Sheet-- Draft Copy was scanned into [employer] and attached to record. lg 10/30 11:16 ECG/EKG was scanned into [employer] and attached to record. gb Administered Medications: 10/28 21:42 Drug: ALPRAZolam 0.25 mg [alprazolam 0.25 mg tablet (1 tabs)] Route: PO; ld5 21:42 Follow up: Response: Med's dispensed home ld5 Signatures: Dispatcher [employer] EDMS Lona Langley, Reg Reg gb Elise Miranda, Reg Reg lg Kristi Diop,RN RN kr3 Lashay Williamson,RN RN ld5 Morelia Quintero PA-C PA-C dt4 The chart was reviewed and I authenticate all verbal orders and agree with the evaluation and treatment provided.Attachments: 20:43 [facility] Payment Agreement 10/29 12:12 T-Sheet-- Draft Copy 10/30 11:16 ECG/EKG gb Chart Complete MTDD
--- NOTE | 2016-10-30 22:45 | EDDOCDS ---
Physician Documentation [facility] Name: Prabha Aquino Age: 36 yrs Sex: Female : 1980 Arrival Date: 10/28/2016 Time: 18:28 Bed TR7 Private MD: Disposition: 10/28/16 21:39 Discharged to Home/Self Care. Impression: Palpitations, Anxiety disorder, unspecified. - Condition is Stable. - Discharge Instructions: Panic Attacks, Palpitations. - Prescriptions for Xanax 0.25 mg Oral Tablet - take 1 tablet by ORAL route every 8 hours As needed MDD: 3 tabs; 20 tablet. - Medication Reconciliation, Local Pharmacy Hours form. - Follow up: Emergency Department; When: As needed; Reason: Worsening of conditions. Follow up: Private Physician; When: 4 - 5 days; Reason: Wound/Symptom Recheck, Recheck today's complaints, Continuance of care. - Problem is new. - Symptoms are unchanged. Historical: - Allergies: IV Dye (Anaphylaxis); Narcotics (myasthenia gravis); Nitrofurantoin Macrocrystal (Rash); PENICILLINS (Hives); SULFA (SULFONAMIDES)breathing difficulty; pt has 2 page list of contraindicated meds; - Home Meds: 1. albuterol sulfate 90 mcg/actuation Inhl HFAA 2 puffs as needed 2. Mestinon 60 mg Oral tab 1 tab every 4 hours for myasthenia gravis (Last dose: 10/28/2016 16:00) 3. potassium chloride 20 mEq Oral pack 1 tab once daily (Last dose: 10/28/2016) 4. IV Ig every other week - PMHx: Asthma; Kidney stones; Migraine Headaches; myasthenia gravis; - PSHx: D & C; Cholecystectomy; - Social history: Smoking status: Patient uses tobacco products, current every day smoker. No barriers to communication noted, The patient speaks fluent Syrian, Speaks appropriately for age. - Family history: Not pertinent. - : The pt / caregiver states he / she is not on anticoagulants. Home medication list is obtained from the patient. - Exposure Risk Screening:: None identified. 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 11 in. (149.86 cm) (R); Pain 0/10; 21:14 BP 141 / 94; Pulse 72; Pulse Ox 98% on R/A; ld5 18:30 Body Mass Index 27.26 (61.23 kg, 149.86 cm) lr2 MDM: 18:33 ECG WITH READING ER PHYS+CARDIAG ordered. EDMS 20:43 [facility] [place] Agreement was scanned into [employer] and attached to record. gb 21:12 Recheck B/P ordered. dt4 21:21 Financial registration complete. gb 21:34 ALPRAZolam Tablet 0.25 mg PO once; give to pt to take home, thank you. ordered. dt4 23:14 ED course: SPOKE WITH PT AND AT LENGTH REGARDING SYMPTOMS AND WHEN PT SHOULD dt4 COME TO THE ED. 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 DENIES ANY PAIN, SOB, NAUSEA, SWEATING, DIZZINESS/LIGHTHEADEDNESS OR SYNCOPE WITH THESE EPISODES. STATES SHE HAS SEEN DR. PEREZ AND DID NOT LIKE HIS "BEDSIDE MANNER" AND HAS AN APPT WITH CARDIOLOGY IN [place] ON November. ADVISED LOOP RECORDER OR HOLTER MONITOR MIGHT HELP TO FURTHER DIAGNOSE THESE AND THAT SHE SHOULD COME BACK WITH ANY WORSENING/NEW SYMPTOMS, INCLUDING CHEST PAIN, SOB, SYNCOPE, LIGHTHEADEDNESS, NAUSEA, SWEATING. PT AND IN AGREEMENT OF TREATMENT PLAN AND VOICE UNDERSTANDING. . 10/29 12:12 T-Sheet-- Draft Copy was scanned into [employer] and attached to record. lg 10/30 11:16 ECG/EKG was scanned into [employer] and attached to record. gb Administered Medications: 10/28 21:42 Drug: ALPRAZolam 0.25 mg [alprazolam 0.25 mg tablet (1 tabs)] Route: PO; ld5 21:42 Follow up: Response: Med's dispensed home ld5 Signatures: Dispatcher [employer] EDMS Lona Langley, Reg Reg gb Elise Miranda, Reg Reg lg Kristi Diop,RN RN kr3 Lashay Williamson,RN RN ld5 Morelia Quintero PA-C PA-C dt4 The chart was reviewed and I authenticate all verbal orders and agree with the evaluation and treatment provided.Attachments: 20:43 [facility] Payment Agreement 10/29 12:12 T-Sheet-- Draft Copy 10/30 11:16 ECG/EKG gb Chart Complete MTDD
--- NOTE | 2016-10-30 22:45 | EDDOCDS ---
Nurse's Notes [facility] Name: Prabha Aquino Age: 36 yrs Sex: Female : 1980 Arrival Date: 10/28/2016 Time: 18:28 Bed TR7 Private MD: Diagnosis: Palpitations;Anxiety disorder, unspecified Presentation: 10/28 18:34 Presenting complaint: Patient states: has palpitations every day 'for a long time' and kr3 doesn't know if she should have come to ED. Has appointment to cardiology in [place] in November. Reports was seen by Dr Celis but did not like him. Adult Sepsis Screening: The patient does not have new or worsening altered mentation. Patient's respiratory rate is less than 22. Systolic blood pressure is greater than 100. Patient has a qSOFA score of 0- Negative Sepsis Screen. Suicide/Homicide risk assessment- the patient denies having any suicidal and/or homicidal ideations and does not present with any other emotional, behavioral or mental health complaints. 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 Transition of care: patient was not received from another setting of care. 18:34 Acuity: GISELE Level 3 kr3 18:34 Method Of Arrival: Walkin/Carried/Asstd kr3 Triage Assessment: 18:37 General: Appears comfortable, Behavior is cooperative, Reports anxiety. Pain: Denies kr3 pain. HIV screening NA for this visit Offered previously. Neurological: Level of Consciousness is awake, alert. Respiratory: Respiratory effort is even, unlabored. Derm: Skin is pink, warm & dry. 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 albuterol sulfate 90 mcg/actuation Inhl HFAA 2 puffs as needed 2. Mestinon 60 mg Oral tab 1 tab every 4 hours for myasthenia gravis (Last dose: 10/28/2016 16:00) 3. potassium chloride 20 mEq Oral pack 1 tab once daily (Last dose: 10/28/2016) 4. IV Ig every other week - PMHx: Asthma; Kidney stones; Migraine Headaches; myasthenia gravis; - PSHx: D & C; Cholecystectomy; - Social history: Smoking status: Patient uses tobacco products, current every day smoker. No barriers to communication noted, The patient speaks fluent Saudi Arabian, Speaks appropriately for age. - Family history: Not pertinent. - : The pt / caregiver states he / she is not on anticoagulants. Home medication list is obtained from the patient. - Exposure Risk Screening:: None identified. Screenin:42 Screening information is obtained from the patient. Fall risk: No risks identified. ld5 Assistance ADL's: requires no assistance with activities of daily living. Abuse/DV Screen: The patient / caregiver reports he/she is: not in a situation that causes fear, pain or injury. Nutritional screening: No deficits noted. Advance Directives: Currently, there is no health care proxy. home support is adequate. Assessment: 21:42 General: Appears in no apparent distress, Behavior is anxious, cooperative. Pain: ld5 Denies pain. Neurological: Level of Consciousness is awake, alert. Respiratory: Airway is patent Respiratory effort is even, unlabored. GI: Denies nausea, vomiting. Derm: Skin is dry. Vital Signs: 18:30 BP 164 / 100; Pulse 86; Resp 17; Temp 96.6(T); Pulse Ox 99% ; Weight 61.23 kg (R); lr2 Height 4 ft. 11 in. (149.86 cm) (R); Pain 0/10; 21:14 BP 141 / 94; Pulse 72; Pulse Ox 98% on R/A; ld5 18:30 Body Mass Index 27.26 (61.23 kg, 149.86 cm) lr2 Vitals: 18:30 Log In Time: October 28, 2016 at 18:28. lr2 ED Course: 18:30 Patient visited by Lashay Parry. lr2 18:30 Patient moved to Waiting lr2 18:31 Patient moved to Pre RCE lr2 18:33 Patient moved to PD2 / ct3 18:36 Triage Initiated kr3 18:38 EKG done. (by ED staff). Reviewed by Michelle Livingston MD. ct3 18:41 Patient visited by Alannah Velasquez PCA. ct3 18:42 Patient moved to Pre RCE kr3 19:20 Patient moved to Triage 2 cz 20:06 EKG-ADULT Returned. EDMS 20:43 Patient name changed from Prabha\S\J\S\Sipos\S\ to Prabha\S\Mary\S\Sipos. EDMS 20:43 [facility] Payment Agreement was scanned into [employer] and attached to record. gb 21:09 More[facility] dt4 21:09 Rafael Mays DO is Attending Physician. dt4 21:09 Patient visited by Morelia Quintero PA-C. dt4 21:42 Patient moved to TR7 ct3 21:42 The patient / caregiver is instructed regarding the plan of care and ED course. ld5 21:42 No IV's were initiated during this patient's visit. No procedures done that require ld5 assistance. 21:44 Patient visited by Lashay Williamson RN. ld5 10/29 12:12 T-Sheet-- Draft Copy was scanned into [employer] and attached to record. lg 10/30 11:16 ECG/EKG was scanned into [employer] and attached to record. 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 dt4 21:42 Discharge Assessment: Patient awake, alert and oriented x 3. No cognitive and/or ld5 functional deficits noted. Patient verbalized understanding of disposition instructions. patient administered narcotics - no. The following High Risk Discharge criteria are identified: None. Discharged to home ambulatory, with family. Condition: stable. Discharge instructions given to patient, Instructed on discharge instructions, follow up and referral plans. medication usage, Demonstrated understanding of instructions, medications, Pt was receptive of discharge instructions/ teaching. Prescriptions given X 1. No special radiology studies were completed. Property :Personal belongings accompany Pt. 21:44 Patient left the ED. ld5 Signatures: Dispatcher [employer] EDMS Mason Laureano, RN RN cz Lona Langley, Reg Reg gb Elise Miranda, Reg Reg lg Kristi Diop,RN RN kr3 Lashay Williamson,RN RN ld5 Alannah Velasquez, TRACTOR DISTRIBUTOR TRACTOR DISTRIBUTOR ct3 Morelia Quintero PA-C PA-C dt4 Lashay Parry lr2 Chart Complete [facility]
== END 2016-10-28 21:44 | disposition home or self-care (01) ==
LOC: M ED 18:28
DX: R00.2 Palpitations (principal); F41.9 Anxiety disorder, unspecified; J45.909 Unspecified asthma, uncomplicated; G43.909 Migraine, unspecified, not intractable, without status migrainosus; Z87.442 Personal history of urinary calculi; G70.00 Myasthenia gravis without (acute) exacerbation; Z79.899 Other long term (current) drug therapy; Z88.0 Allergy status to penicillin; Z88.2 Allergy status to sulfonamides; Z88.5 Allergy status to narcotic agent; Z88.8 Allergy status to other drugs, medicaments and biological substances; F17.201 Nicotine dependence, unspecified, in remission

== ENCOUNTER 2016-11-01 19:43 | Outpatient (CLI) | payer OTHER ==
[~2016-11-01] VITALS: Ht 149.9 cm; Wt 57.3 kg
[2016-11-01] VITALS (8 sets, daily range): BP systolic 123–150; BP diastolic 75–100
[2016-11-01] MEDS ORDERED: IMMUNE GLOBULIN 10% 20 GM in APPROPRIATE DILUENT 1 EA IV ONE (21:00)
== END 2016-11-02 00:12 | disposition home or self-care (01) ==
LOC: M INFU 19:43 → M ICU 19:46 → M INFU 11-02 00:12
PROVIDERS: ATTEND Psychiatry & Neurology Neurology
DX: G70.00 Myasthenia gravis without (acute) exacerbation (principal)
CPT/HCPCS: 96365; 96366; J1568

== ENCOUNTER → 2016-11-03 | Outpatient (CLI) | payer OTHER | LOC: M LABDRAW1 07:35 → M LAB 07:35 | PROVIDERS: ATTEND Internal Medicine Cardiovascular Disease | DX: R07.2 Precordial pain (principal) ==

== ENCOUNTER 2016-11-10 21:09 | Emergency (ER) | payer OTHER ==
[~2016-11-10] VITALS: Ht 149.9 cm; Wt 61.2 kg
[2016-11-10 21:24] VITALS: BP 149/110
[2016-11-10] MEDS ORDERED: K-TA10TA2 PO (21:32)
[2016-11-10] MEDS ORDERED: PYRI60TA2 PO (21:32)
[2016-11-10] MEDS ORDERED: OSEL75CA PO (22:58)
[2016-11-10] MEDS ORDERED: OSELTAMIVIR PHOSPHATE 75 MG CAP (TAMIFLU) PO ONE (23:00)
== END 2016-11-10 23:16 | disposition home or self-care (01) ==
LOC: M ED 21:51
DX: J11.1 Influenza due to unidentified influenza virus with other respiratory manifestations (principal); G70.00 Myasthenia gravis without (acute) exacerbation; F17.210 Nicotine dependence, cigarettes, uncomplicated; Z88.0 Allergy status to penicillin; Z88.2 Allergy status to sulfonamides; Z79.899 Other long term (current) drug therapy

== ENCOUNTER 2017-02-23 20:27 | Emergency (ER) | payer OTHER ==
[~2017-02-23] VITALS: Ht 149.9 cm; Wt 63.4 kg
[~2017-02-23 20:27] MED LIST changes: +K-TA10TA2 PO; +OSEL75CA PO; +PYRI60TA2 PO
[2017-02-23] MEDS ORDERED: NS 500 ML IV ONE (21:30)
[2017-02-23 21:43] LABS: BASO # 0.1 K/mm3 (0.0-0.2); BASO % 0.5 % (0.0-1.0); EOS # 0.4 K/mm3 (0.0-0.50); EOS % 2.8 % (0.0-3.0); LARGE UNSTAINED CELL # 0.1 K/mm3 (0.0-0.4); LARGE UNSTAINED CELL % 0.5 % (0.0-4.0); LYMPH # 1.4 K/mm3 (1.5-4.5); LYMPH % 10.3 % (24.0-44.0); MEAN CORPUSCULAR HEMOGLOBIN 32.4 pg (27.0-33.0); MEAN CORPUSCULAR HGB CONC 33.6 g/dl (32.0-36.5); MEAN CORPUSCULAR VOLUME 96.5 fl (80.0-96.0); MONO # 0.5 K/mm3 (0.0-0.8); MONO % 3.5 % (0.0-5.0); NEUTROPHILS # 10.9 K/mm3 (1.8-7.7); NEUTROPHILS % 82.3 % (36.0-66.0); PLATELET COUNT, AUTOMATED 438 k/mm3 (150-450); RED CELL DISTRIBUTION WIDTH 13.5 % (11.5-14.5); WHITE BLOOD COUNT 13.3 K/mm3 (4.0-10.0)
[2017-02-23 21:50] LABS: INR 0.94
--- NOTE | 2017-02-23 22:03 | ECGEPIP ---
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
[2017-02-23 22:08] LABS: CONTROL LINE HCG INT CTR LINE PRESENT
[2017-02-23 22:18] LABS: ALBUMIN 3.6 GM/DL (3.2-5.2); ALBUMIN/GLOBULIN RATIO 0.95 (1.00-1.93); ALKALINE PHOSPHATASE 120 U/L (45-117); ALT/SGPT 21 U/L (12-78); ANION GAP 6 MEQ/L (8-16); AST/SGOT 18 U/L (15-37); BILIRUBIN,DIRECT < 0.1 MG/DL (0.0-0.2); BILIRUBIN,TOTAL 0.2 MG/DL (0.2-1.0); BLOOD UREA NITROGEN 7 MG/DL (7-18); CALCIUM LEVEL 8.6 MG/DL (8.5-10.1); CARBON DIOXIDE LEVEL 24 MEQ/L (21-32); CHLORIDE LEVEL 105 MEQ/L (98-107); CREATININE FOR GFR 0.71 MG/DL (0.55-1.02); GLOMERULAR FILTRATION RATE > 60.0 (>60); GLUCOSE, FASTING 105 MG/DL (70-105); POTASSIUM SERUM 3.8 MEQ/L (3.5-5.1); SODIUM LEVEL 135 MEQ/L (136-145); TOTAL PROTEIN 7.4 GM/DL (6.4-8.2)
--- NOTE | 2017-02-23 22:40 | REPUSA ---
CLINICAL HISTORY: Pain. COMMENTS: Real time sonography with duplex doppler of the extremities bilaterally was performed with attention to the major deep venous structures. Evaluation reveals the common femoral, superficial femoral and popliteal veins bilaterally to be comp letely compressible without intraluminal thrombus. There is normal spontaneous phasic flow and augmen tation in all deep veins. The greater saphenous/common femoral vein junctions are patent bilaterally. IMPRESSION: No evidence of DVT in the lower extremities bilaterally. Thank you for your kind referral of this patient.
[2017-02-23] MEDS ORDERED: PYRIDOSTIGMINE 60 MG TAB PO STA (22:51)
--- NOTE | 2017-02-23 23:10 | REPUSA ---
CLINICAL HISTORY: R/o CVA TECHNIQUE: Multiple axial brain CT scan sections were obtained from base to vertex without contrast a dministration. COMMENTS: The study shows normal configuration of sella turcica. There are no intra or extra-axial collections. There is no mass effect or midline shift. There is no evidence of hematoma formation. No hydrocephal us is present. No abnormal calcifications are noted. No significant abnormalities are seen either in the posterior fossa or supratentorial compartment. The sinuses and mastoid air cells are patent. IMPRESSION: No evidence of acute intracranial pathology. Consider follow up with MRI/diffusion if clinically war ranted. Thank you for your kind referral of this patient.
[2017-02-23] MEDS ORDERED: ASPIRIN 81 MG CHEW TABLET PO ONE (23:15)
[2017-02-23 23:59] VITALS: BP 132/68
--- NOTE | 2017-02-24 08:43 | REP ---
Portable chest x-ray: Single view. History: CVA. Comparison study: September 30, 2016. Findings: EKG monitoring electrodes overlie the chest. The patient is status post prior median sternotomy. The heart is not felt to be enlarged. Lungs are well inflated and clear. Pleural angles are sharp. Pulmonary vasculature is not increased. Impression: No acute disease. Signed by Nagi Mcclain MD 02/24/2017 09:55 A
== END 2017-02-24 00:01 | disposition left against medical advice (07) ==
LOC: M ED 21:23
DX: G70.00 Myasthenia gravis without (acute) exacerbation (principal); Z90.49 Acquired absence of other specified parts of digestive tract; F17.200 Nicotine dependence, unspecified, uncomplicated; Z88.0 Allergy status to penicillin; Z88.2 Allergy status to sulfonamides; Z91.041 Radiographic dye allergy status; Z79.899 Other long term (current) drug therapy

== ENCOUNTER 2017-03-11 16:21 | Outpatient (CLI) | payer OTHER ==
[~2017-03-11] VITALS: Ht 149.9 cm; Wt 62.5 kg
[2017-03-11 16:40] VITALS: BP 136/89
[2017-03-11] MEDS ORDERED: IBUP200C10 PO (16:45)
[2017-03-11] MEDS ORDERED: IMMUNE GLOBULIN 10% 20 GM in APPROPRIATE DILUENT 1 EA IV ONE (17:15)
[2017-03-11 17:45] VITALS: BP 150/90
[2017-03-11 18:15] VITALS: BP 137/79
[2017-03-11 18:45] VITALS: BP 131/83
[2017-03-11 19:15] VITALS: BP 137/79
[2017-03-11 19:35] VITALS: BP 127/83
[2017-03-14] MEDS ORDERED: IMMUNE GLOBULIN 10% 20 GM in APPROPRIATE DILUENT 1 EA IV ONE (21:30)
[2017-03-15] MEDS ORDERED: IMMUNE GLOBULIN 10% 10 GM in APPROPRIATE DILUENT 1 EA IV ONE (21:00)
[2017-03-15] MEDS ORDERED: IMMUNE GLOBULIN 10% 20 GM in APPROPRIATE DILUENT 1 EA IV ONE ×2 (21:00)
== END 2017-03-11 19:41 | disposition home or self-care (01) ==
LOC: M OPCLIPED 16:21 → M PED 16:40 → M OPCLIPED 19:41
PROVIDERS: ATTEND Psychiatry & Neurology Neurology
DX: G70.01 Myasthenia gravis with (acute) exacerbation (principal); Z88.0 Allergy status to penicillin; Z88.2 Allergy status to sulfonamides; Z88.8 Allergy status to other drugs, medicaments and biological substances

== ENCOUNTER 2017-03-13 13:41 | Outpatient (CLI) | payer OTHER ==
[2017-03-13] VITALS (8 sets, daily range): BP systolic 136–177; BP diastolic 77–92
[~2017-03-13] VITALS: Ht 149.9 cm; Wt 63.3 kg
[~2017-03-13 13:41] MED LIST changes: +IBUP200C10 PO
[2017-03-13] MEDS ORDERED: IMMUNE GLOBULIN 10% 20 GM in APPROPRIATE DILUENT 1 EA IV ONE ×3 (14:45→15:00)
== END 2017-03-13 19:00 | disposition home or self-care (01) ==
LOC: M OPCLI4PR 13:41 → M PED 13:44 → M OPCLI4PR 19:00
PROVIDERS: ATTEND Psychiatry & Neurology Neurology
DX: G70.00 Myasthenia gravis without (acute) exacerbation (principal); Z88.1 Allergy status to other antibiotic agents; Z88.0 Allergy status to penicillin; Z88.2 Allergy status to sulfonamides; Z79.899 Other long term (current) drug therapy

== ENCOUNTER 2017-03-14 20:27 | Outpatient (CLI) | payer OTHER ==
[~2017-03-14] VITALS: Ht 149.9 cm; Wt 63.7 kg
[2017-03-14 20:47] VITALS: BP 165/96
[2017-03-14 22:30] VITALS: BP 148/90
[2017-03-14] MEDS ORDERED: IMMUNE GLOBULIN 10% 20 GM in APPROPRIATE DILUENT 1 EA IV ONE (22:45)
[2017-03-14 23:00] VITALS: BP 148/92
[2017-03-14 23:30] VITALS: BP 132/82
[2017-03-15] VITALS: BP 142/90
[2017-03-15 00:30] VITALS: BP 144/92
[2017-03-15 00:45] VITALS: BP 142/92
== END 2017-03-15 01:00 | disposition home or self-care (01) ==
LOC: M OPCLI4PR 20:27 → M PED 20:30 → M OPCLI4PR 03-15 01:00
PROVIDERS: ATTEND Psychiatry & Neurology Neurology
DX: G70.00 Myasthenia gravis without (acute) exacerbation (principal); Z88.1 Allergy status to other antibiotic agents; Z88.0 Allergy status to penicillin; Z88.2 Allergy status to sulfonamides; Z79.899 Other long term (current) drug therapy

== ENCOUNTER 2017-03-15 20:05 | Outpatient (CLI) | payer OTHER ==
[2017-03-15 20:30] VITALS: BP 129/96
[2017-03-15] MEDS ORDERED: IMMUNE GLOBULIN 10% 20 GM in APPROPRIATE DILUENT 1 EA IV ONE (21:15)
[2017-03-15 21:35] VITALS: BP 160/87
[2017-03-15 22:05] VITALS: BP 138/95
[2017-03-15 22:35] VITALS: BP 158/95
[2017-03-15 23:05] VITALS: BP 148/88
[2017-03-15 23:35] VITALS: BP 152/90
[2017-03-16 00:05] VITALS: BP 139/90
[2017-03-16 00:35] VITALS: BP 136/93
[2017-03-16 01:20] VITALS: BP 139/89
[2017-03-16 01:35] VITALS: BP 136/86
== END 2017-03-16 01:50 | disposition home or self-care (01) ==
LOC: M OPCLI4PR 20:05 → M PED 20:29 → M OPCLI4PR 03-16 01:50
PROVIDERS: ATTEND Psychiatry & Neurology Neurology
DX: G70.00 Myasthenia gravis without (acute) exacerbation (principal); Z88.1 Allergy status to other antibiotic agents; Z88.0 Allergy status to penicillin; Z88.2 Allergy status to sulfonamides; Z79.899 Other long term (current) drug therapy

== ENCOUNTER 2017-03-16 22:07 | Outpatient (CLI) | payer OTHER ==
[~2017-03-16] VITALS: Ht 149.9 cm; Wt 63.7 kg
[2017-03-16] MEDS ORDERED: IMMUNE GLOBULIN 10% 20 GM in APPROPRIATE DILUENT 1 EA IV ONE (23:00)
[2017-03-16 23:10] VITALS: BP 165/90
[2017-03-16 23:45] VITALS: BP 125/86
[2017-03-17 00:15] VITALS: BP 167/102
[2017-03-17 00:45] VITALS: BP 141/90
[2017-03-17 01:45] VITALS: BP 162/101
[2017-03-17 02:05] VITALS: BP 158/101
== END 2017-03-17 02:20 ==
LOC: M OPCLI4PR 22:07 → M PED 22:20 → M OPCLI4PR 03-17 02:20
PROVIDERS: ATTEND Psychiatry & Neurology Neurology
DX: G70.00 Myasthenia gravis without (acute) exacerbation (principal); Z88.1 Allergy status to other antibiotic agents; Z88.0 Allergy status to penicillin; Z88.2 Allergy status to sulfonamides; Z79.899 Other long term (current) drug therapy

== ENCOUNTER 2017-03-30 20:21 | Outpatient (CLI) | payer OTHER ==
[~2017-03-30] VITALS: Ht 149.9 cm; Wt 63.5 kg
[2017-03-30] MEDS ORDERED: IMMUNE GLOBULIN 10% 20 GM in APPROPRIATE DILUENT 1 EA IV ONE (21:00)
[2017-03-30 23:10] VITALS: BP 142/79
[2017-03-30 23:38] VITALS: BP 140/73
[2017-03-31 00:11] VITALS: BP 128/76
[2017-03-31 00:36] VITALS: BP 116/84
[2017-03-31 01:07] VITALS: BP 119/76
[2017-03-31 01:26] VITALS: BP 114/83
== END 2017-03-31 01:26 | disposition home or self-care (01) ==
LOC: M OPCLI5PR 20:21 → M MS5PR 20:25 → M OPCLI5PR 03-31 01:26
PROVIDERS: ATTEND Psychiatry & Neurology Neurology
DX: G70.00 Myasthenia gravis without (acute) exacerbation (principal); Z88.1 Allergy status to other antibiotic agents; Z88.0 Allergy status to penicillin; Z88.2 Allergy status to sulfonamides; Z79.899 Other long term (current) drug therapy

== ENCOUNTER 2017-04-16 22:49 | Emergency (ER) | payer OTHER ==
[~2017-04-16] VITALS: Ht 149.9 cm; Wt 63.6 kg
[2017-04-17] MEDS ORDERED: LIDOCAINE VISCOUS 2% SOLN 15ML UDC SS ONE (06:15)
[2017-04-17] MEDS ORDERED: CLIN150C14 PO (06:37)
[2017-04-17] MEDS ORDERED: CLINDAMYCIN 150 MG CAP PO ONE (06:45)
[2017-04-17 07:00] VITALS: BP 112/68
== END 2017-04-17 07:01 | disposition home or self-care (01) ==
LOC: M ED 22:49
DX: J02.0 Streptococcal pharyngitis (principal); G70.00 Myasthenia gravis without (acute) exacerbation; F17.200 Nicotine dependence, unspecified, uncomplicated; Z79.899 Other long term (current) drug therapy; Z88.2 Allergy status to sulfonamides; Z88.0 Allergy status to penicillin; Z88.8 Allergy status to other drugs, medicaments and biological substances

== ENCOUNTER 2017-05-13 15:34 | Outpatient (CLI) | payer OTHER ==
[2017-05-13] VITALS (7 sets, daily range): BP systolic 126–158; BP diastolic 73–88
[~2017-05-13 15:34] MED LIST changes: +CLIN150C14 PO
[2017-05-13] MEDS ORDERED: IMMUNE GLOBULIN 10% 5 GM in APPROPRIATE DILUENT 1 EA IV ONE (16:00)
[2017-05-13] MEDS ORDERED: IMMUNE GLOBULIN 10% 20 GM in APPROPRIATE DILUENT 1 EA IV ONE (16:30)
== END 2017-05-13 21:30 | disposition home or self-care (01) ==
LOC: M LAB 15:34 → M OPCLIPED 15:34 → M PED 15:37 → M LAB 21:30
PROVIDERS: ATTEND Psychiatry & Neurology Neurology
DX: G70.00 Myasthenia gravis without (acute) exacerbation (principal)
CPT/HCPCS: 96365; 96366; J1568

== ENCOUNTER → 2017-05-18 | Outpatient (CLI) | payer OTHER ==
[~2017-05-18] MED LIST changes: +NORC1TAB4 PO
--- NOTE | 2017-05-18 15:07 | REP ---
Clinical: Palpable mass. Technique: Real time gutiérrez scale and color Doppler evaluation using linear high frequency transducer. Findings: Directed ultrasound examination of the submandibular region at the site of maximal tenderness demonstrates a small lymph node measuring 12 x 4 x 6 mm. No fluid collection or mass lesion otherwise appreciated. Impression: Palpable mass likely corresponds to relatively normal appearing lymph node. Signed by Royal Kearney MD 05/18/2017 03:00 P
== END ==
LOC: M RAD 14:06
PROVIDERS: ATTEND Physician Assistant
DX: R22.1 Localized swelling, mass and lump, neck (principal)

== ENCOUNTER 2017-07-14 05:28 | Emergency (ER) | payer OTHER ==
[~2017-07-14] VITALS: Ht 149.9 cm; Wt 63.0 kg
[~2017-07-14 05:28] MED LIST changes: -NORC1TAB4 PO
[2017-07-14] MEDS ORDERED: K-TA10TA2 PO (05:40)
[2017-07-14] MEDS ORDERED: NORCO, ANEXSIA 5/325MG TABLET (HYDROcodone/ACETAMINOPHEN) PO ONE (07:15)
[2017-07-14] MEDS ORDERED: NORC1TAB4 PO (07:18)
[2017-07-14 07:32] VITALS: BP 139/88
--- NOTE | 2017-07-14 10:26 | REP ---
LEFT ANKLE COMPLETE: 07/14/2017. Clinical history: Trauma, ankle pain. Comparison: foot x-ray this date. Findings: Four views show some minor swelling about the ankle. There is no fracture of the distal tibia or fibula. The mortise joint was symmetric and preserved. There is no talar dome osteochondral defect. Subtalar joints intact. Tiny Achilles insertion spur on the posterior calcaneus. No plantar spur. Talonavicular and calcaneocuboid joints and the visualized tarsal bones were unremarkable. Impression: 1. Minor heel spur and minimal swelling about the ankle. No visible or displaced fracture at the ankle. Signed by Darion Chaves MD 07/14/2017 07:21 P
--- NOTE | 2017-07-14 10:27 | REP ---
LEFT FOOT COMPLETE: 07/14/2017. Clinical history: Trauma. Findings: Four views of the foot compared to the ankle series this date and left toe series 12/24/2015. There are fractures of the distal metaphyses of the second through fourth metatarsals with some lateral angulation of the distal fragment. No subluxation or dislocation. There is distraction and complete fracture through the third metatarsal neck. No other fracture or focal abnormality. Impression: 1. Oblique fractures through the distal second through fourth metatarsals at the metaphyses, a complete oblique fracture for the third metatarsal with a few millimeters of distraction and lateral angulation of the distal fragment. No subluxation or dislocation of the MTP joints. No other finding. Signed by Darion Chaves MD 07/14/2017 07:21 P
== END 2017-07-14 07:45 | disposition home or self-care (01) ==
LOC: M ED 05:28
DX: S92.325A Nondisplaced fracture of second metatarsal bone, left foot, initial encounter for closed fracture (principal); S92.335A Nondisplaced fracture of third metatarsal bone, left foot, initial encounter for closed fracture; S92.345A Nondisplaced fracture of fourth metatarsal bone, left foot, initial encounter for closed fracture; M77.32 Calcaneal spur, left foot; X50.1XXA Overexertion from prolonged static or awkward postures, initial encounter; Y92.099 Unspecified place in other non-institutional residence as the place of occurrence of the external cause; Y93.9 Activity, unspecified; Y99.9 Unspecified external cause status; G70.00 Myasthenia gravis without (acute) exacerbation; J45.909 Unspecified asthma, uncomplicated; M79.9 Soft tissue disorder, unspecified; F17.200 Nicotine dependence, unspecified, uncomplicated; Z79.899 Other long term (current) drug therapy; Z88.0 Allergy status to penicillin; Z88.2 Allergy status to sulfonamides; Z88.8 Allergy status to other drugs, medicaments and biological substances

== ENCOUNTER → 2017-10-04 | Outpatient (REF) | payer OTHER ==
[2017-10-04 12:16] LABS: BASO # 0.1 10^3/uL (0.0-0.2); BASO % 0.8 % (0.0-1.0); EOS # 0.3 10^3/uL (0.0-0.50); EOS % 3.1 % (0.0-3.0); HEMATOCRIT 41.6 % (36.0-47.0); HEMOGLOBIN 14.2 g/dl (12.0-16.0); IMMATURE GRANULOCYTE % 0.3 % (0-0); LYMPH % 22.8 % (24.0-44.0); MEAN CORPUSCULAR HEMOGLOBIN 31.9 pg (27.0-33.0); MEAN CORPUSCULAR HGB CONC 34.1 g/dl (32.0-36.5); MEAN CORPUSCULAR VOLUME 93.5 fl (80.0-96.0); MONO # 0.6 10^3/uL (0.0-0.8); MONO % 7.1 % (0.0-5.0); NEUTROPHILS # 5.8 10^3/uL (1.8-7.7); NEUTROPHILS % 65.9 % (36.0-66.0); PLATELET COUNT, AUTOMATED 438 10^3/uL (150-450); RED BLOOD COUNT 4.45 10^6/uL (4.00-5.40); WHITE BLOOD COUNT 8.8 10^3/uL (4.0-10.0)
[2017-10-04 12:41] LABS: ALBUMIN 3.6 GM/DL (3.2-5.2); ALBUMIN/GLOBULIN RATIO 0.92 (1.00-1.93); ALKALINE PHOSPHATASE 97 U/L (45-117); ALT/SGPT 13 U/L (12-78); ANION GAP 7 MEQ/L (8-16); AST/SGOT 8 U/L (7-37); BILIRUBIN,TOTAL 0.2 MG/DL (0.2-1.0); BLOOD UREA NITROGEN 8 MG/DL (7-18); CALCIUM LEVEL 8.4 MG/DL (8.5-10.1); CARBON DIOXIDE LEVEL 24 MEQ/L (21-32); CHLORIDE LEVEL 107 MEQ/L (98-107); CREATININE FOR GFR 0.62 MG/DL (0.55-1.02); GLOMERULAR FILTRATION RATE > 60.0 (>60); GLUCOSE, FASTING 89 MG/DL (70-100); POTASSIUM SERUM 3.6 MEQ/L (3.5-5.1); SODIUM LEVEL 138 MEQ/L (136-145); TOTAL PROTEIN 7.5 GM/DL (6.4-8.2)
== END ==
LOC: M LABDRAW1 10:51
DX: G70.00 Myasthenia gravis without (acute) exacerbation (principal)
CPT/HCPCS: 36415

== ENCOUNTER → 2017-10-06 | Outpatient (REF) | payer OTHER | LOC: M LAB REF 15:11 | DX: N76.0 Acute vaginitis (principal) | CPT/HCPCS: 87086 ==

== ENCOUNTER 2017-11-13 23:51 | Emergency (ER) | payer OTHER ==
[2017-11-14 02:18] LABS: BASO # 0.1 10^3/uL (0.0-0.2); BASO % 0.5 % (0.0-1.0); EOS # 0.5 10^3/uL (0.0-0.50); EOS % 4.3 % (0.0-3.0); HEMATOCRIT 39.9 % (36.0-47.0); HEMOGLOBIN 13.5 g/dl (12.0-16.0); IMMATURE GRANULOCYTE % 0.5 % (0-3.0); LYMPH # 2.2 10^3/uL (1.5-4.5); LYMPH % 19.5 % (24.0-44.0); MEAN CORPUSCULAR HEMOGLOBIN 31.7 pg (27.0-33.0); MEAN CORPUSCULAR HGB CONC 33.8 g/dl (32.0-36.5); MEAN CORPUSCULAR VOLUME 93.7 fl (80.0-96.0); MONO # 0.6 10^3/uL (0.0-0.8); MONO % 5.5 % (0.0-5.0); NEUTROPHILS # 7.7 10^3/uL (1.8-7.7); NEUTROPHILS % 69.7 % (36.0-66.0); PLATELET COUNT, AUTOMATED 389 10^3/uL (150-450); RED BLOOD COUNT 4.26 10^6/uL (4.00-5.40); RED CELL DISTRIBUTION WIDTH 13.3 % (11.5-14.5)
[2017-11-14 02:34] LABS: INR 0.95; PROTHROMBIN TIME 12.8 SECONDS (12.4-14.5)
[2017-11-14 02:35] LABS: CONTROL LINE HCG INT CTR LINE PRESENT; HCG, SERUM QUALITATIVE NEGATIVE (NEGATIVE); PARTIAL THROMBOPLASTIN TIME 29.6 SECONDS (26.8-37.9)
[2017-11-14 02:44] LABS: ANION GAP 6 MEQ/L (8-16); BLOOD UREA NITROGEN 4 MG/DL (7-18); C REACTIVE PROTEIN QUANTITATIV 0.95 MG/DL (0.00-0.30); CALCIUM LEVEL 8.4 MG/DL (8.5-10.1); CARBON DIOXIDE LEVEL 25 MEQ/L (21-32); CHLORIDE LEVEL 107 MEQ/L (98-107); CPK CREATINE PHOSPHOKINASE 74 U/L (26-192); CREATININE FOR GFR 0.65 MG/DL (0.55-1.30); GLOMERULAR FILTRATION RATE > 60.0 (>60); GLUCOSE, FASTING 97 MG/DL (70-100); MB/CK RELATIVE INDEX 1.35 (< OR =4); POTASSIUM SERUM 3.5 MEQ/L (3.5-5.1); SODIUM LEVEL 138 MEQ/L (136-145); TROPONIN I < 0.02 NG/ML (< 0.10)
[2017-11-14 04:33] LABS: ERYTHROCYTE SEDIMENTATION RATE 44 mm/hr (0-20)
[2017-11-14] MEDS: ASPIRIN 325 MG TAB PO (04:45)
== END 2017-11-14 04:59 | disposition left against medical advice (07) ==
LOC: M ED 23:51
DX: G45.3 Amaurosis fugax (principal); G45.9 Transient cerebral ischemic attack, unspecified; Z53.21 Procedure and treatment not carried out due to patient leaving prior to being seen by health care provider; G70.00 Myasthenia gravis without (acute) exacerbation; F41.9 Anxiety disorder, unspecified; F17.200 Nicotine dependence, unspecified, uncomplicated; Z82.49 Family history of ischemic heart disease and other diseases of the circulatory system; Z82.3 Family history of stroke; Z79.899 Other long term (current) drug therapy; Z88.8 Allergy status to other drugs, medicaments and biological substances; Z88.0 Allergy status to penicillin; Z88.2 Allergy status to sulfonamides
CPT/HCPCS: 71046

== ENCOUNTER → 2018-01-02 | Outpatient (CLI) | payer OTHER ==
[2018-01-02 12:59] LABS: HEMATOCRIT 41.5 % (36.0-47.0); MEAN CORPUSCULAR HEMOGLOBIN 31.2 pg (27.0-33.0); MEAN CORPUSCULAR HGB CONC 33.7 g/dl (32.0-36.5); MEAN CORPUSCULAR VOLUME 92.4 fl (80.0-96.0); PLATELET COUNT, AUTOMATED 385 10^3/uL (150-450); RED BLOOD COUNT 4.49 10^6/uL (4.00-5.40); RED CELL DISTRIBUTION WIDTH 13.3 % (11.5-14.5); WHITE BLOOD COUNT 8.5 10^3/uL (4.0-10.0)
[2018-01-02 13:31] LABS: ESTIMATED AVERAGE GLUCOSE 97 MG/DL (60-110)
[2018-01-02 13:40] LABS: TOTAL 25(OH) VITAMIN D 12.1 NG/ML (30.0-100.0)
[2018-01-02 14:16] LABS: ALBUMIN 3.5 GM/DL (3.2-5.2); ALBUMIN/GLOBULIN RATIO 0.85 (1.00-1.93); ALKALINE PHOSPHATASE 102 U/L (45-117); ALT/SGPT 13 U/L (12-78); ANION GAP 8 MEQ/L (8-16); AST/SGOT 10 U/L (7-37); BILIRUBIN,TOTAL 0.5 MG/DL (0.2-1.0); BLOOD UREA NITROGEN 6 MG/DL (7-18); CALCIUM LEVEL 8.4 MG/DL (8.5-10.1); CARBON DIOXIDE LEVEL 20 MEQ/L (21-32); CHLORIDE LEVEL 112 MEQ/L (98-107); CHOLESTEROL LEVEL 157 MG/DL (<200); CHOLESTEROL RISK RATIO 5.233 (<5); GLOMERULAR FILTRATION RATE > 60.0 (>60); GLUCOSE, FASTING 87 MG/DL (70-100); HDL CHOLESTEROL 30 MG/DL (>40); LDL CHOLESTEROL 106.2 MG/DL (<100); NON-HDL-C 127 MG/DL; POTASSIUM SERUM 3.9 MEQ/L (3.5-5.1); SODIUM LEVEL 140 MEQ/L (136-145); TOTAL PROTEIN 7.6 GM/DL (6.4-8.2); TRIGLYCERIDES LEVEL 104 MG/DL (<150)
== END ==
LOC: M LAB 11:33
DX: D64.9 Anemia, unspecified (principal)
CPT/HCPCS: 93005

== ENCOUNTER → 2018-01-02 | Outpatient (CLI) | payer OTHER ==
[2018-01-02 13:26] LABS: C REACTIVE PROTEIN QUANTITATIV 1.11 MG/DL (0.00-0.30)
[2018-01-02 13:26] LABS: RHEUMATOID FACTOR QUANT < 10.0 IU/ML (<15.0)
[2018-01-02 13:48] LABS: ERYTHROCYTE SEDIMENTATION RATE 43 mm/hr (0-20)
[2018-01-08 00:06] LABS: ACETYLCHOLINE RCPTOR BINDING A > 80.00 nmol/L (0.00-0.24)
[2018-01-08 00:06] LABS: ANTI DOUBLE STRAND-DNA AB 39 IU/mL (0-9); ANTI THROMBIN 3 FUNCT ACTIVITY 117 % (75-135); ANTINUCLEAR ANTIBODIES DIRECT Positive (Negative); PROTEIN C FUNCTIONAL ACTIVITY 110 % (73-180); PROTEIN S FUNCTIONAL ACTIVITY 98 % (63-140); RNP ANTIBODIES 1.1 AI (0.0-0.9); SJOGREN'S ANTI SS-A 0.2 AI (0.0-0.9); SJOGREN'S ANTI SS-B <0.2 AI (0.0-0.9); SMITH ANTIBODIES <0.2 AI (0.0-0.9)
[2018-01-08 09:15] LABS: DRVV SCREEN 50.3 SEC
[2018-01-08 09:16] LABS: PTT LUPUS TYPE ANTICOAG SCREEN 1.2 (0-1.2)
[2018-01-08 09:27] LABS: DRVV CONFIRM 37.4 SEC
== END ==
LOC: M LAB 11:39
DX: G45.9 Transient cerebral ischemic attack, unspecified (principal)
CPT/HCPCS: 71046

== ENCOUNTER 2018-03-24 23:01 | Emergency (ER) | payer OTHER | END 2018-03-25 02:23 | disposition home or self-care (01) | LOC: M ED 23:01 | DX: R42 Dizziness and giddiness (principal); J45.909 Unspecified asthma, uncomplicated; G70.01 Myasthenia gravis with (acute) exacerbation; F17.210 Nicotine dependence, cigarettes, uncomplicated; Z88.0 Allergy status to penicillin; Z88.2 Allergy status to sulfonamides; Z88.1 Allergy status to other antibiotic agents; Z79.899 Other long term (current) drug therapy | CPT/HCPCS: 99283 ==

== ENCOUNTER → 2018-03-27 | Outpatient (CLI) | payer OTHER ==
[2018-03-27 14:22] LABS: BASO % 0.4 % (0.0-1.0); EOS # 0.2 10^3/uL (0.0-0.50); EOS % 1.7 % (0.0-3.0); HEMATOCRIT 43.3 % (36.0-47.0); HEMOGLOBIN 14.8 g/dl (12.0-15.5); IMMATURE GRANULOCYTE % 0.3 % (0-3.0); LYMPH # 1.3 10^3/uL (1.5-4.5); LYMPH % 13.9 % (24.0-44.0); MEAN CORPUSCULAR HEMOGLOBIN 31.5 pg (27.0-33.0); MEAN CORPUSCULAR HGB CONC 34.2 g/dl (32.0-36.5); MEAN CORPUSCULAR VOLUME 92.1 fl (80.0-96.0); MONO # 0.5 10^3/uL (0.0-0.8); MONO % 5.5 % (0.0-5.0); NEUTROPHILS # 7.1 10^3/uL (1.8-7.7); NEUTROPHILS % 78.2 % (36.0-66.0); PLATELET COUNT, AUTOMATED 382 10^3/uL (150-450); RED CELL DISTRIBUTION WIDTH 13.3 % (11.5-14.5); WHITE BLOOD COUNT 9.1 10^3/uL (4.0-10.0)
[2018-03-27 14:50] LABS: ALBUMIN 3.5 GM/DL (3.2-5.2); ALBUMIN/GLOBULIN RATIO 0.83 (1.00-1.93); ALKALINE PHOSPHATASE 107 U/L (45-117); ALT/SGPT 26 U/L (12-78); ANION GAP 8 MEQ/L (8-16); AST/SGOT 12 U/L (7-37); BILIRUBIN,TOTAL 0.5 MG/DL (0.2-1.0); BLOOD UREA NITROGEN 3 MG/DL (7-18); CALCIUM LEVEL 8.5 MG/DL (8.5-10.1); CARBON DIOXIDE LEVEL 26 MEQ/L (21-32); CHLORIDE LEVEL 109 MEQ/L (98-107); CREATININE FOR GFR 0.62 MG/DL (0.55-1.30); FREE T4 1.09 NG/DL (0.76-1.46); GLOMERULAR FILTRATION RATE > 60.0 (>60); GLUCOSE, FASTING 95 MG/DL (70-100); POTASSIUM SERUM 4.1 MEQ/L (3.5-5.1); SODIUM LEVEL 143 MEQ/L (136-145); TOTAL PROTEIN 7.7 GM/DL (6.4-8.2)
== END ==
LOC: M WUC 12:15
DX: R42 Dizziness and giddiness (principal)
CPT/HCPCS: 84443

== ENCOUNTER → 2018-06-03 | Outpatient (CLI) | payer OTHER ==
[2018-06-05 14:20] LABS: SSA SJOGRENS A 0.4 AI (0.0-0.9); SSB SJOGRENS B <0.2 AI (0.0-0.9)
== END ==
LOC: M WUC 16:06
DX: M35.00 Sjogren syndrome, unspecified (principal); Z13.29 Encounter for screening for other suspected endocrine disorder
CPT/HCPCS: 86235

== ENCOUNTER 2018-06-12 00:54 | Emergency (ER) | payer OTHER ==
[2018-06-12 02:46] LABS: BASO # 0.1 10^3/uL (0.0-0.2); BASO % 0.6 % (0.0-1.0); EOS # 0.2 10^3/uL (0.0-0.50); EOS % 2.1 % (0.0-3.0); HEMATOCRIT 44.7 % (36.0-47.0); HEMOGLOBIN 15.1 g/dl (12.0-15.5); IMMATURE GRANULOCYTE % 0.4 % (0-3.0); LYMPH % 19.4 % (24.0-44.0); MEAN CORPUSCULAR HEMOGLOBIN 31.4 pg (27.0-33.0); MEAN CORPUSCULAR HGB CONC 33.8 g/dl (32.0-36.5); MEAN CORPUSCULAR VOLUME 92.9 fl (80.0-96.0); MONO # 0.5 10^3/uL (0.0-0.8); MONO % 4.6 % (0.0-5.0); NEUTROPHILS # 7.7 10^3/uL (1.8-7.7); NEUTROPHILS % 72.9 % (36.0-66.0); PLATELET COUNT, AUTOMATED 445 10^3/uL (150-450); RED BLOOD COUNT 4.81 10^6/uL (4.00-5.40); RED CELL DISTRIBUTION WIDTH 14.1 % (11.5-14.5); WHITE BLOOD COUNT 10.5 10^3/uL (4.0-10.0)
[2018-06-12 03:00] LABS: ANION GAP 6 MEQ/L (8-16); BLOOD UREA NITROGEN 6 MG/DL (7-18); CALCIUM LEVEL 8.6 MG/DL (8.5-10.1); CARBON DIOXIDE LEVEL 25 MEQ/L (21-32); CHLORIDE LEVEL 109 MEQ/L (98-107); CK-MB VALUE MASS < 1.0 NG/ML (<3.6); CPK CREATINE PHOSPHOKINASE 63 U/L (26-192); CREATININE FOR GFR 0.73 MG/DL (0.55-1.30); GLOMERULAR FILTRATION RATE > 60.0 (>60); GLUCOSE, FASTING 99 MG/DL (70-100); MB/CK RELATIVE INDEX 1.59 (< OR =4); POTASSIUM SERUM 3.8 MEQ/L (3.5-5.1); SODIUM LEVEL 140 MEQ/L (136-145); TROPONIN I < 0.02 NG/ML (< 0.10)
== END 2018-06-12 05:16 | disposition home or self-care (01) ==
LOC: M ED 00:54
DX: R00.2 Palpitations (principal); R06.02 Shortness of breath; F41.1 Generalized anxiety disorder; Z88.0 Allergy status to penicillin; Z88.8 Allergy status to other drugs, medicaments and biological substances; F17.210 Nicotine dependence, cigarettes, uncomplicated
CPT/HCPCS: 93005

== ENCOUNTER 2018-07-13 05:31 | Emergency (ER) | payer OTHER ==
[2018-07-13] MEDS: ACETAMINOPHEN TAB 650MG DOSE (2X325MG) PO (07:00)
[2018-07-13] MEDS: CEFDINIR 300 MG CAP (OMNICEF) PO (07:28)
== END 2018-07-13 07:44 | disposition home or self-care (01) ==
LOC: M ED 05:31
DX: H66.002 Acute suppurative otitis media without spontaneous rupture of ear drum, left ear (principal); J06.9 Acute upper respiratory infection, unspecified; J45.909 Unspecified asthma, uncomplicated; E66.9 Obesity, unspecified; Z88.0 Allergy status to penicillin; Z88.2 Allergy status to sulfonamides; Z88.8 Allergy status to other drugs, medicaments and biological substances; F17.210 Nicotine dependence, cigarettes, uncomplicated
CPT/HCPCS: 99283

== ENCOUNTER → 2018-10-07 | Outpatient (CLI) | payer OTHER ==
[~2018-10-07] MED LIST changes: +ATIV1TAB10 PO; +CEFD1CAP8 PO; +HYDR-3713 PO; -IBUP200C10 PO; +IBUP200C25 PO; +LORA0.5T11; +NORC1TAB4 PO; +OXYC1TAB23 PO; +OXYCOD/APAP; +POTA20TA6; +VENTAER; +[UNRECOGNIZED DRUG - OTHER] IV
[2018-10-07 18:09] LABS: HCG, SERUM QUALITATIVE NEGATIVE (NEGATIVE)
[2018-10-07 18:28] LABS: HCG, SERUM QUANTITATIVE < 1.0 MIU/ML; RHEUMATOID FACTOR QUANT < 10.0 IU/ML (<15.0); TOTAL 25(OH) VITAMIN D 11.1 NG/ML (30.0-100.0)
[2018-10-10 00:09] LABS: Lyme Disease IgG Ab 18 kDa Ban Absent (.); Lyme Disease IgG Ab 23 kDa Ban Absent (.); Lyme Disease IgG Ab 28 kDa Ban Absent (.); Lyme Disease IgG Ab 30 kDa Ban Absent (.); Lyme Disease IgG Ab 39 kDa Ban Absent (.); Lyme Disease IgG Ab 41 kDa Ban Present (.); Lyme Disease IgG Ab 45 kDa Ban Absent (.); Lyme Disease IgG Ab 58 kDa Ban Absent (.); Lyme Disease IgG Ab 66 kDa Ban Absent (.); Lyme Disease IgG Ab 93 kDa Ban Absent (.); Lyme Disease IgG West Blot Int Negative (.); Lyme Disease IgG/IgM Antibodie <0.91 ISR (0.00-0.90); Lyme Disease IgM Ab 23 kDa Ban Present (.); Lyme Disease IgM Ab 39 kDa Ban Absent (.); Lyme Disease IgM Ab 41 kDa Ban Absent (.); Lyme Disease IgM Ab Quantitati 1.72 index (0.00-0.79); Lyme Disease IgM West Blot Int Negative (.)
== END ==
LOC: M WUC 14:25
PROVIDERS: ATTEND Family Medicine
DX: R53.83 Other fatigue (principal)

== ENCOUNTER 2018-11-02 20:07 | Emergency (ER) | payer OTHER ==
[~2018-11-02] VITALS: Ht 147.3 cm; Wt 64.5 kg
[2018-11-02] MEDS ORDERED: MEST60TA PO (20:16)
[2018-11-02] MEDS ORDERED: diphenhydrAMINE INJ 50MG/ML VIAL (J1200) IV STA (20:25)
[2018-11-02] MEDS ORDERED: KETOROLAC 30 MG/ML VIAL (J1885) IV ONE (20:30)
[2018-11-02] MEDS ORDERED: METOCLOPRAMIDE INJ 10MG/2ML VIAL (J2765) IV ONE (20:30)
[2018-11-02] MEDS ORDERED: NS 1,000 ML IV ONE (20:30)
[2018-11-02 20:50] LABS: HEMATOCRIT 44.2 % (36.0-47.0); HEMOGLOBIN 14.5 g/dl (12.0-15.5); MEAN CORPUSCULAR HGB CONC 32.8 g/dl (32.0-36.5); MEAN CORPUSCULAR VOLUME 94.4 fl (80.0-96.0); PLATELET COUNT, AUTOMATED 372 10^3/uL (150-450); RED BLOOD COUNT 4.68 10^6/uL (4.00-5.40); WHITE BLOOD COUNT 10.8 10^3/uL (4.0-10.0)
[2018-11-02 21:12] LABS: BLOOD UREA NITROGEN 9 MG/DL (7-18); CALCIUM LEVEL 8.6 MG/DL (8.5-10.1); CARBON DIOXIDE LEVEL 23 MEQ/L (21-32); CHLORIDE LEVEL 108 MEQ/L (98-107); CREATININE FOR GFR 0.69 MG/DL (0.55-1.30); GLOMERULAR FILTRATION RATE > 60.0 (>60); GLUCOSE, FASTING 99 MG/DL (70-100); POTASSIUM SERUM 3.9 MEQ/L (3.5-5.1); SODIUM LEVEL 140 MEQ/L (136-145)
[2018-11-02 21:18] LABS: HCG, SERUM QUALITATIVE NEGATIVE (NEGATIVE)
[2018-11-02] MEDS ORDERED: REGL10TA6 PO (21:42)
[2018-11-02 21:53] VITALS: BP 166/91
== END 2018-11-02 21:56 | disposition home or self-care (01) ==
LOC: M ED 20:07
DX: R51 Headache (principal); Z72.0 Tobacco use; Z79.899 Other long term (current) drug therapy; Z88.0 Allergy status to penicillin; Z88.2 Allergy status to sulfonamides; Z88.8 Allergy status to other drugs, medicaments and biological substances
CPT/HCPCS: 36415; 80048; 84703; 85027; 96374; 96375; 99284; J1200; J1885; J2765

== ENCOUNTER 2018-12-18 21:43 | Emergency (ER) | payer OTHER ==
[~2018-12-18] VITALS: Ht 148.6 cm; Wt 68.0 kg
[~2018-12-18 21:43] MED LIST changes: -/ADVA50050; -/MYCO50TA PO; +ADVA1AER2; +CELL1TAB PO; -NORC1TAB4 PO; +NORC1TAB7 PO; +REGL10TA6 PO
[2018-12-18 22:37] VITALS: BP 174/102
--- NOTE | 2018-12-19 02:35 | REP ---
Clinical: Trauma. Technique: Frontal view of the chest with four views of the left hemithorax. Findings: Frontal view of the chest demonstrates no acute cardiopulmonary process. Multiple views of the left hemithorax demonstrates no obvious acute rib fracture or pathology. Impression: Normal left rib series Electronically Signed by Royal Kearney MD 12/19/2018 02:27 A
== END 2018-12-18 23:30 | disposition home or self-care (01) ==
LOC: M ED 21:43
DX: S23.41XA Sprain of ribs, initial encounter (principal); X58.XXXA Exposure to other specified factors, initial encounter; Y92.89 Other specified places as the place of occurrence of the external cause; R03.0 Elevated blood-pressure reading, without diagnosis of hypertension; G70.00 Myasthenia gravis without (acute) exacerbation; Z88.0 Allergy status to penicillin; Z88.2 Allergy status to sulfonamides; Z88.8 Allergy status to other drugs, medicaments and biological substances

== ENCOUNTER 2019-01-16 17:22 | Emergency (ER) | payer OTHER ==
[~2019-01-16] VITALS: Ht 147.3 cm; Wt 66.5 kg
[2019-01-16] MEDS ORDERED: NS 1,000 ML IV ONE (18:30)
[2019-01-16 19:09] LABS: BASO # 0.1 10^3/uL (0.0-0.2); BASO % 0.5 % (0.0-1.0); EOS # 0.1 10^3/uL (0.0-0.50); EOS % 1.2 % (0.0-3.0); HEMATOCRIT 41.8 % (36.0-47.0); LYMPH # 1.7 10^3/uL (1.5-4.5); LYMPH % 15.2 % (24.0-44.0); MEAN CORPUSCULAR HEMOGLOBIN 32.4 pg (27.0-33.0); MEAN CORPUSCULAR HGB CONC 33.5 g/dl (32.0-36.5); MEAN CORPUSCULAR VOLUME 96.8 fl (80.0-96.0); MONO # 0.5 10^3/uL (0.0-0.8); MONO % 4.4 % (0.0-5.0); NEUTROPHILS # 8.8 10^3/uL (1.8-7.7); NEUTROPHILS % 78.2 % (36.0-66.0); PLATELET COUNT, AUTOMATED 427 10^3/uL (150-450); RED BLOOD COUNT 4.32 10^6/uL (4.00-5.40); WHITE BLOOD COUNT 11.3 10^3/uL (4.0-10.0)
[2019-01-16 19:33] LABS: ALBUMIN 3.5 GM/DL (3.2-5.2); ALT/SGPT 14 U/L (12-78); BILIRUBIN,DIRECT < 0.1 MG/DL (0.0-0.2); BILIRUBIN,TOTAL 0.1 MG/DL (0.2-1.0); BLOOD UREA NITROGEN 5 MG/DL (7-18); CALCIUM LEVEL 8.6 MG/DL (8.5-10.1); CARBON DIOXIDE LEVEL 26 MEQ/L (21-32); CHLORIDE LEVEL 106 MEQ/L (98-107); CREATININE FOR GFR 0.69 MG/DL (0.55-1.30); GLOMERULAR FILTRATION RATE > 60.0 (>60); GLUCOSE, FASTING 85 MG/DL (70-100); LIPASE 302 U/L (73-393); POTASSIUM SERUM 3.9 MEQ/L (3.5-5.1); SODIUM LEVEL 139 MEQ/L (136-145); TOTAL PROTEIN 7.3 GM/DL (6.4-8.2)
--- NOTE | 2019-01-16 20:58 | REPVR ---
EXAM: CT Abdomen and Pelvis Without Contrast EXAM DATE/TIME: 01/16/2019 7:32 PM CLINICAL HISTORY: 38 years old, female; Abdominal pain; Localized; Left upper quadrant (luq); Additional info: Luq pain TECHNIQUE: Imaging protocol: Axial computed tomography images of the abdomen and pelvis without contrast. Coronal and sagittal reformatted images were created and reviewed. Radiation optimization: All CT scans at this facility use at least one of these dose optimization techniques: automated exposure control; mA and/or kV adjustment per patient size (includes targeted exams where dose is matched to clinical indication); or iterative reconstruction. COMPARISON: CT ABD PELVIS W/O CONTRAST 12/18/2015 6:39 AM FINDINGS: Lungs: Clear lung bases. ABDOMEN: Liver: Normal appearing liver. Gallbladder and bile ducts: There are surgical clips in the gallbladder fossa and the patient is status post cholecystectomy. Normal common bile duct. Pancreas: Normal pancreas. Spleen: Normal. No splenomegaly. Adrenals: Normal adrenal glands. Kidneys and ureters: There is a 2 mm calcified stone upper pole left kidney/nonobstructive. Stomach and bowel: The cecum is in the right pelvis and there is no evidence of inflammation in the region of the cecum. There is no evidence of bowel obstruction. Appendix: No evidence of inflammation in the region of the appendix. PELVIS: Bladder: Normal urinary bladder. Reproductive: Normal uterus. 3 CM cyst of the left ovary Small cysts right ovary. ABDOMEN and PELVIS: Intraperitoneal space: There is no evidence of pneumoperitoneum. There is no evidence of free fluid in the abdomen or pelvis. Bones/joints: There is no evidence of bony abnormality. Soft tissues: Unremarkable. Vasculature: Normal. No abdominal aortic aneurysm. Lymph nodes: Normal. No enlarged lymph nodes. IMPRESSION: 3 mm stone upper pole left kidney/nonobstructive. Electronically signed by: Joey Robertson On 01/16/2019 20:58:01 PM
[2019-01-16] MEDS ORDERED: PANT40TA3 PO (21:40)
[2019-01-16 21:53] VITALS: BP 175/100
== END 2019-01-16 21:55 | disposition home or self-care (01) ==
LOC: M ED 17:22
DX: K21.9 Gastro-esophageal reflux disease without esophagitis (principal); N20.0 Calculus of kidney; N83.202 Unspecified ovarian cyst, left side; J45.909 Unspecified asthma, uncomplicated; G70.00 Myasthenia gravis without (acute) exacerbation; Z79.899 Other long term (current) drug therapy; Z88.0 Allergy status to penicillin; Z88.1 Allergy status to other antibiotic agents; Z88.2 Allergy status to sulfonamides; F17.210 Nicotine dependence, cigarettes, uncomplicated

== ENCOUNTER → 2019-01-21 | Outpatient (CLI) | payer OTHER ==
[~2019-01-21] MED LIST changes: +PANT40TA3 PO
[2019-01-21 16:52] LABS: BASO % 0.5 % (0.0-1.0); EOS # 0.2 10^3/uL (0.0-0.50); EOS % 1.9 % (0.0-3.0); HEMATOCRIT 41.8 % (36.0-47.0); HEMOGLOBIN 13.7 g/dl (12.0-15.5); LYMPH # 1.8 10^3/uL (1.5-4.5); LYMPH % 22.9 % (24.0-44.0); MEAN CORPUSCULAR HEMOGLOBIN 31.2 pg (27.0-33.0); MEAN CORPUSCULAR HGB CONC 32.8 g/dl (32.0-36.5); MEAN CORPUSCULAR VOLUME 95.2 fl (80.0-96.0); MONO # 0.5 10^3/uL (0.0-0.8); MONO % 5.8 % (0.0-5.0); NEUTROPHILS # 5.4 10^3/uL (1.8-7.7); NEUTROPHILS % 68.4 % (36.0-66.0); PLATELET COUNT, AUTOMATED 429 10^3/uL (150-450); RED BLOOD COUNT 4.39 10^6/uL (4.00-5.40); WHITE BLOOD COUNT 7.9 10^3/uL (4.0-10.0)
[2019-01-21 17:14] LABS: ALBUMIN 3.3 GM/DL (3.2-5.2); ALT/SGPT 47 U/L (12-78); BILIRUBIN,TOTAL 0.3 MG/DL (0.2-1.0); BLOOD UREA NITROGEN 5 MG/DL (7-18); CALCIUM LEVEL 8.4 MG/DL (8.5-10.1); CARBON DIOXIDE LEVEL 23 MEQ/L (21-32); CHLORIDE LEVEL 108 MEQ/L (98-107); CREATININE FOR GFR 0.59 MG/DL (0.55-1.30); GLOMERULAR FILTRATION RATE > 60.0 (>60); GLUCOSE, FASTING 83 MG/DL (70-100); POTASSIUM SERUM 4.1 MEQ/L (3.5-5.1); SODIUM LEVEL 137 MEQ/L (136-145); TOTAL PROTEIN 7.5 GM/DL (6.4-8.2)
[2019-01-28 10:37] LABS: DRVV SCREEN 41.4 SEC
[2019-01-31 14:11] LABS: ACETYLCHOLINE RCPTOR BINDING A > 80.00 nmol/L (0.00-0.24); STRIATIONAL ANTIBODIES Negative (Neg:<1:40)
== END ==
LOC: M WUC 13:30
PROVIDERS: ATTEND Psychiatry & Neurology Neurology
DX: G70.00 Myasthenia gravis without (acute) exacerbation (principal)

== ENCOUNTER 2019-01-27 18:50 | Emergency (ER) | payer OTHER ==
[~2019-01-27] VITALS: Ht 149.9 cm; Wt 63.2 kg
[2019-01-27 20:05] LABS: BASO # 0.1 10^3/uL (0.0-0.2); BASO % 0.6 % (0.0-1.0); EOS # 0.1 10^3/uL (0.0-0.50); EOS % 1.1 % (0.0-3.0); HEMATOCRIT 44.1 % (36.0-47.0); HEMOGLOBIN 14.7 g/dl (12.0-15.5); LYMPH # 1.7 10^3/uL (1.5-4.5); LYMPH % 15.4 % (24.0-44.0); MEAN CORPUSCULAR HEMOGLOBIN 32.1 pg (27.0-33.0); MEAN CORPUSCULAR HGB CONC 33.3 g/dl (32.0-36.5); MEAN CORPUSCULAR VOLUME 96.3 fl (80.0-96.0); MONO # 0.6 10^3/uL (0.0-0.8); NEUTROPHILS # 8.6 10^3/uL (1.8-7.7); NEUTROPHILS % 77.5 % (36.0-66.0); PLATELET COUNT, AUTOMATED 378 10^3/uL (150-450); RED BLOOD COUNT 4.58 10^6/uL (4.00-5.40); WHITE BLOOD COUNT 11.1 10^3/uL (4.0-10.0)
[2019-01-27 20:17] LABS: INR 1.02; PROTHROMBIN TIME 13.5 SECONDS (12.1-14.4)
[2019-01-27 20:31] LABS: ALBUMIN 3.5 GM/DL (3.2-5.2); ALT/SGPT 28 U/L (12-78); BILIRUBIN,TOTAL 0.3 MG/DL (0.2-1.0); BLOOD UREA NITROGEN 7 MG/DL (7-18); CALCIUM LEVEL 8.3 MG/DL (8.5-10.1); CARBON DIOXIDE LEVEL 25 MEQ/L (21-32); CHLORIDE LEVEL 107 MEQ/L (98-107); CK-MB VALUE MASS < 1.0 NG/ML (<3.6); CPK CREATINE PHOSPHOKINASE 64 U/L (26-192); CREATININE FOR GFR 0.68 MG/DL (0.55-1.30); GLOMERULAR FILTRATION RATE > 60.0 (>60); GLUCOSE, FASTING 78 MG/DL (70-100); LIPASE 135 U/L (73-393); MB/CK RELATIVE INDEX 1.56 (< OR =4); POTASSIUM SERUM 3.9 MEQ/L (3.5-5.1); SODIUM LEVEL 140 MEQ/L (136-145); TOTAL PROTEIN 8.1 GM/DL (6.4-8.2); TROPONIN I < 0.02 NG/ML (< 0.10)
[2019-01-27 22:15] VITALS: BP 149/86
--- NOTE | 2019-01-28 00:16 | ECGEPIP ---
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
--- NOTE | 2019-01-28 06:16 | REP ---
Clinical: Chest pain and palpitations . Comparison: 01/02/2018 . Technique: PA and lateral. Findings: The mediastinum and cardiac silhouette are normal. Evidence of prior sternotomy. The lung valle are clear and without acute consolidation, effusion, or pneumothorax. The skeletal structures are intact and normal. Impression: 1. No acute cardiopulmonary process. Electronically Signed by Ryoal Kearney MD 01/28/2019 06:08 A
== END 2019-01-27 22:33 | disposition home or self-care (01) ==
LOC: M ED 18:50
DX: R00.2 Palpitations (principal); F41.1 Generalized anxiety disorder; Z72.0 Tobacco use; Z79.899 Other long term (current) drug therapy; Z88.0 Allergy status to penicillin; Z88.2 Allergy status to sulfonamides; Z88.8 Allergy status to other drugs, medicaments and biological substances

== ENCOUNTER 2019-03-23 20:37 | Emergency (ER) | payer OTHER ==
[~2019-03-23] VITALS: Ht 147.3 cm; Wt 65.9 kg
[2019-03-23] MEDS ORDERED: CLIN300C5 PO (20:45)
[2019-03-24 00:36] LABS: BASO # 0.1 10^3/uL (0.0-0.2); BASO % 0.6 % (0.0-1.0); EOS # 0.3 10^3/uL (0.0-0.50); EOS % 2.9 % (0.0-3.0); HEMATOCRIT 41.3 % (36.0-47.0); HEMOGLOBIN 14.1 g/dl (12.0-15.5); LYMPH # 2.1 10^3/uL (1.5-4.5); LYMPH % 22.1 % (24.0-44.0); MEAN CORPUSCULAR HEMOGLOBIN 32.6 pg (27.0-33.0); MEAN CORPUSCULAR HGB CONC 34.1 g/dl (32.0-36.5); MEAN CORPUSCULAR VOLUME 95.4 fl (80.0-96.0); MONO # 0.5 10^3/uL (0.0-0.8); MONO % 5.3 % (0.0-5.0); NEUTROPHILS # 6.4 10^3/uL (1.8-7.7); NEUTROPHILS % 68.7 % (36.0-66.0); PLATELET COUNT, AUTOMATED 411 10^3/uL (150-450); RED BLOOD COUNT 4.33 10^6/uL (4.00-5.40); WHITE BLOOD COUNT 9.3 10^3/uL (4.0-10.0)
[2019-03-24 01:07] VITALS: BP 144/88
== END 2019-03-24 01:12 | disposition home or self-care (01) ==
LOC: M ED 20:37
DX: L03.211 Cellulitis of face (principal); K04.7 Periapical abscess without sinus; G70.00 Myasthenia gravis without (acute) exacerbation; J45.909 Unspecified asthma, uncomplicated; Z88.0 Allergy status to penicillin; Z88.2 Allergy status to sulfonamides; Z88.8 Allergy status to other drugs, medicaments and biological substances

== ENCOUNTER 2019-03-30 16:08 | Emergency (ER) | payer OTHER ==
[~2019-03-30] VITALS: Ht 147.3 cm; Wt 66.2 kg
[~2019-03-30 16:08] MED LIST changes: +CLIN300C5 PO
[2019-03-30] MEDS ORDERED: HYDR-3713 PO (16:20)
[2019-03-30] MEDS ORDERED: LORA0.5T11 (16:20)
[2019-03-30] MEDS ORDERED: TETRACAINE 0.5% OPHTH SOLN 4ML OD ONE (18:15)
[2019-03-30] MEDS ORDERED: FLUORESCEIN OPHTH 1 MG STRIP OD ONE (18:15)
[2019-03-30] MEDS ORDERED: POLYTRIM OPTH DROPS 10ML OD STA (18:27)
[2019-03-30 19:03] VITALS: BP 145/90
== END 2019-03-30 18:57 | disposition home or self-care (01) ==
LOC: M ED 16:08
DX: H10.42 Simple chronic conjunctivitis (principal); G70.00 Myasthenia gravis without (acute) exacerbation; J45.909 Unspecified asthma, uncomplicated; Z88.0 Allergy status to penicillin; Z88.2 Allergy status to sulfonamides; Z88.8 Allergy status to other drugs, medicaments and biological substances; F17.200 Nicotine dependence, unspecified, uncomplicated; Z79.899 Other long term (current) drug therapy; Z90.89 Acquired absence of other organs

== ENCOUNTER 2019-08-04 17:18 | Emergency (ER) | payer OTHER ==
[~2019-08-04] VITALS: Ht 147.3 cm; Wt 65.9 kg
[2019-08-04 17:18] VITALS: BP 151/84
[~2019-08-04 17:18] MED LIST changes: +ALBU8.5H INH; +DICY20TA11 PO; +POTA1TAB23 PO; -VENTAER; +VENTAER INH; +[UNRECOGNIZED DRUG - OTHER] IV
== END 2019-08-04 18:44 | disposition left against medical advice (07) ==
LOC: M ED 17:18
DX: Z53.21 Procedure and treatment not carried out due to patient leaving prior to being seen by health care provider (principal)

== ENCOUNTER → 2019-09-15 | Outpatient (CLI) | payer OTHER ==
--- NOTE | 2019-09-16 09:29 | REP ---
INDICATION: Neoplasm of the salivary gland. PROCEDURE: CT neck without contrast COMPARISON STUDIES: No prior similar studies FINDINGS: Scattered cervical chain lymph nodes are seen without definite evidence of lymphadenopathy. Two submental nodes are within normal limits in size appear rounded and without fatty hilum. There is a collection of nodes at the right tongue base and anterior to the right sternocleidomastoid muscle which appear asymmetric and greater in number than on the left however these appear within normal limits size. A slightly higher density sub-centimeter nodule is seen in the posterior right parotid gland, may also represent a lymph node. There is a low density nodule in the left thyroid gland measures approximately 23 mm AP by 16 mm transverse. Oropharynx, nasopharynx, hypopharynx, and larynx appear unremarkable. Osseous structures within normal limits. No osseous lesions identified. No evidence of a significant canal or foraminal stenosis. Paranasal sinuses are clear. CONCLUSION: 1. Scattered cervical chain lymph nodes as described without definite lymphadenopathy or abscess. 2. Salivary glands appear within normal limits. 3. Thyroid nodule on the left as described. Electronically Signed by Carlito Kauffman MD 09/16/2019 09:19 A
== END ==
LOC: M RAD 16:35
PROVIDERS: ATTEND Otolaryngology
DX: D37.030 Neoplasm of uncertain behavior of the parotid salivary glands (principal)

== ENCOUNTER 2019-09-19 20:29 | Emergency (ER) | payer OTHER ==
[~2019-09-19] VITALS: Ht 147.3 cm; Wt 66.9 kg
[~2019-09-19 20:29] MED LIST changes: -LORA0.5T11; +LORA0.5T5; +ZONI100C17 PO; -ZONI100C2 PO
[2019-09-19] MEDS ORDERED: IBUP200T45 PO (21:08)
[2019-09-19] MEDS ORDERED: HYDR-3713 PO (21:08)
[2019-09-19] MEDS ORDERED: LORA0.5T5 PO (21:08)
[2019-09-19 21:18] VITALS: BP 152/94
== END 2019-09-19 22:23 | disposition home or self-care (01) ==
LOC: M ED 20:29
DX: F45.8 Other somatoform disorders (principal); I10 Essential (primary) hypertension; J45.909 Unspecified asthma, uncomplicated; K21.9 Gastro-esophageal reflux disease without esophagitis; F41.1 Generalized anxiety disorder; G70.00 Myasthenia gravis without (acute) exacerbation; F17.210 Nicotine dependence, cigarettes, uncomplicated; Z88.0 Allergy status to penicillin; Z88.2 Allergy status to sulfonamides; Z79.51 Long term (current) use of inhaled steroids; Z79.899 Other long term (current) drug therapy

== ENCOUNTER → 2019-10-27 | Outpatient (REF) | payer OTHER ==
[~2019-10-27] MED LIST changes: +IBUP200T45 PO; +LORA0.5T5 PO; +MELO7.5T35
[2019-10-27 21:48] LABS: CHLAMYDIA DNA AMPLIFICATION NEGATIVE (NEGATIVE); GC DNA AMPLIFICATION NEGATIVE (NEGATIVE)
== END ==
LOC: M LAB REF 09:11
PROVIDERS: ATTEND Physician Assistant
DX: N30.01 Acute cystitis with hematuria (principal)

== ENCOUNTER 2019-10-28 17:24 | Emergency (ER) | payer OTHER ==
[~2019-10-28] VITALS: Ht 147.3 cm; Wt 67.0 kg
[~2019-10-28 17:24] MED LIST changes: -MELO7.5T35
[2019-10-28] MEDS ORDERED: MELO7.5T35 (17:35)
[2019-10-28 18:56] LABS: BASO # 0.1 10^3/uL (0.0-0.2); BASO % 0.6 % (0.0-1.0); EOS # 0.1 10^3/uL (0.0-0.5); EOS % 1.1 % (0.0-3.0); LYMPH # 1.7 10^3/uL (1.5-5.0); LYMPH % 13.7 % (24.0-44.0); MEAN CORPUSCULAR HEMOGLOBIN 32.3 pg (27.0-33.0); MEAN CORPUSCULAR HGB CONC 34.1 g/dl (32.0-36.5); MEAN CORPUSCULAR VOLUME 94.8 fl (80.0-96.0); MONO # 0.6 10^3/uL (0.0-0.8); MONO % 5.1 % (0.0-5.0); NEUTROPHILS # 9.9 10^3/uL (1.5-8.5); PLATELET COUNT, AUTOMATED 446 10^3/uL (150-450); RED BLOOD COUNT 4.64 10^6/uL (4.00-5.40); WHITE BLOOD COUNT 12.5 10^3/uL (4.0-10.0)
[2019-10-28 19:28] LABS: ALBUMIN 3.7 GM/DL (3.2-5.2); BILIRUBIN,DIRECT 0.1 MG/DL (0.0-0.2); BILIRUBIN,TOTAL 0.3 MG/DL (0.2-1.0)
--- NOTE | 2019-10-28 20:34 | REPVR ---
PROCEDURE INFORMATION: Exam: US Pelvis Complete, Transabdominal Exam date and time: 10/28/2019 8:24 PM Age: 39 years old Clinical indication: Pelvic pain; Additional info: Cramping TECHNIQUE: Imaging protocol: Real-time transabdominal pelvic ultrasound with image documentation. Complete exam. COMPARISON: US PELVIC NON-OB COMPLETE 07/28/2015 3:51 AM FINDINGS: Uterus/cervix: Uterus measures 7.6 x 4 x 5.8 cm. Hypoechoic focus in the uterine fundus measures 1.9 x 1.1 x 1.6 cm consistent with a fibroid. Endometrial echo complex measures 4.9 mm. Right adnexa: Right ovary measures 2.6 x 1.8 x 2 cm. Volume 4.9 cc. Normal flow. Left adnexa: Left ovary measures 2.8 x 1.5 x 2.2 cm. Volume 4.8 cc. Normal flow. Free fluid: None. Bladder: Normal. IMPRESSION: Small uterine fibroid. Otherwise unremarkable examination. Electronically signed by: Raoy Porras On 10/28/2019 20:33:46 PM
[2019-10-28 21:08] VITALS: BP 141/97
== END 2019-10-28 21:10 | disposition home or self-care (01) ==
LOC: M ED 17:24
DX: D25.9 Leiomyoma of uterus, unspecified (principal); R31.9 Hematuria, unspecified; I10 Essential (primary) hypertension; J45.909 Unspecified asthma, uncomplicated; K21.9 Gastro-esophageal reflux disease without esophagitis; Z88.0 Allergy status to penicillin; Z88.2 Allergy status to sulfonamides; Z88.1 Allergy status to other antibiotic agents; Z88.8 Allergy status to other drugs, medicaments and biological substances; Z79.51 Long term (current) use of inhaled steroids; Z79.899 Other long term (current) drug therapy

== ENCOUNTER → 2019-12-19 | Outpatient (CLI) | payer OTHER ==
[~2019-12-19] MED LIST changes: +MELO7.5T35
--- NOTE | 2019-12-19 15:47 | REP ---
DIGITAL DIAGNOSTIC BILATERAL MAMMOGRAPHY WITH CAD, 3-D TOMOGRAPHY, AND FOCUSED LEFT BREAST SONOGRAPHY. HISTORY: Left breast mass on clinician breast exam and pain 3 o'clock position left breast. The patient cannot feel the mass. Positive family history of breast carcinoma. Comparison mammography January 02, 2019 and February 22, 2017. MAMMOGRAPHIC FINDINGS: Parenchyma remains mildly dense in a pattern which may inhibit the sensitivity of mammography. The pattern is unchanged from prior mammography bilaterally. No dominant density is seen in the lateral aspect of the left breast or elsewhere mammographically. No neodensity, architectural distortion, microcalcification, or worrisome skin change is visible. Mammogram is unchanged. SONOGRAPHIC FINDINGS: Sonography is performed in the area the patient's pain and 3 o'clock position where clinician breast exam was positive. There are two simple cysts noted, each measuring 0.6 cm in greatest diameter. These are located 5 and 4 cm from the nipple respectively both at 3 o'clock position. Heterogeneous fibroglandular background echotexture is seen. No sonographically suspicious finding. IMPRESSION:BIRADS 2: BI-RADS/ACR category 2 mammogram. Benign Findings. BIRADS category 2 benign findings. Clinical followup is advised. This negative report should not dissuade one from biopsy of a palpable lump depending on its clinical characteristics. This mammogram was interpreted with the aid of an FDA-approved computer-aided detection system. The patient states she had a clinical breast exam in December 2019. The patient letter being requested is m2 dense. This patient's estimated Tyrer-Cuzick lifetime risk assessment for breast cancer is 45.7 %. Enhanced screening in the form of annual bilateral breast MRI scanning is warranted. Bilateral breast MRI scanning is recommended annually, beginning 6 months from now.
== END ==
LOC: M WHC 12:53
PROVIDERS: ATTEND Family Medicine
DX: Z12.31 Encounter for screening mammogram for malignant neoplasm of breast (principal); Z80.3 Family history of malignant neoplasm of breast
CPT/HCPCS: 76642; G0279

== ENCOUNTER 2019-12-24 00:17 | Emergency (ER) | payer OTHER ==
[~2019-12-24] VITALS: Ht 147.3 cm; Wt 63.6 kg
[2019-12-24] MEDS ORDERED: GI COCKTAIL 50ML BTL(HYOSCYAMINE/MAALOX/LIDOCAINE VISCOUS)(1:3:1) PO ONE (01:00)
[2019-12-24] MEDS ORDERED: ONDANSETRON 4 MG ORAL DISINTEGRATING TAB (Q0162 PER 1MG) As Ordered ONE (01:17)
[2019-12-24] MEDS: ONDANSETRON 4MG/2ML VIAL (J2405) IV ONE ×2 (01:22→01:25)
[2019-12-24] MEDS ORDERED: ONDANSETRON 4 MG ORAL DISINTEGRATING TAB (Q0162 PER 1MG) PO ONE (01:30)
[2019-12-24 01:48] VITALS: BP 162/82
== END 2019-12-24 02:01 | disposition home or self-care (01) ==
LOC: M ED 00:17
DX: S10.15XA Superficial foreign body of throat, initial encounter (principal); R11.0 Nausea; X58.XXXA Exposure to other specified factors, initial encounter; Y92.9 Unspecified place or not applicable; Y93.89 Activity, other specified; Y99.9 Unspecified external cause status; I10 Essential (primary) hypertension; K21.9 Gastro-esophageal reflux disease without esophagitis; J45.909 Unspecified asthma, uncomplicated; G70.00 Myasthenia gravis without (acute) exacerbation; Z87.442 Personal history of urinary calculi; Z79.899 Other long term (current) drug therapy; Z88.0 Allergy status to penicillin; Z88.2 Allergy status to sulfonamides; Z88.8 Allergy status to other drugs, medicaments and biological substances
CPT/HCPCS: 99283; Q0162

== ENCOUNTER → 2020-01-14 | Outpatient (REF) | payer OTHER ==
[2020-01-14 15:49] LABS: FREE T4 0.95 NG/DL (0.76-1.46); THYROID STIMULATING HORMONE 1.83 uIU/ML (0.358-3.740)
[2020-01-14 15:51] LABS: LUTEINIZING HORMONE 4.6 mIU/mL; PROGESTERONE 11.52 NG/ML; PROLACTIN 6.3 NG/ML
[2020-01-14 15:52] LABS: FOLLICLE STIMULATING HORMONE 2.9 mIU/mL
== END ==
LOC: M PLALAB 13:30
PROVIDERS: ATTEND Specialist
DX: N92.6 Irregular menstruation, unspecified (principal)

== ENCOUNTER → 2020-09-20 | Outpatient (REF) | payer OTHER ==
[~2020-09-20] MED LIST changes: -CLIN150C14 PO; +CLIN150C15 PO; -CLIN300C5 PO; +CLIN300C6 PO; +PANT40TA29 PO; -PANT40TA3 PO
== END ==
LOC: M LAB REF 19:18
PROVIDERS: ATTEND Physician Assistant
DX: R87.89 Other abnormal findings in specimens from female genital organs (principal)

== ENCOUNTER → 2020-11-17 | Outpatient (CLI) | payer OTHER ==
--- NOTE | 2020-11-17 14:37 | ECGEPIP ---
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
--- NOTE | 2020-11-17 14:47 | REP ---
INDICATION: HTN,FATIGUE/ LABS COMPARISON: 01/27/2019 TECHNIQUE: PA and lateral. FINDINGS: The mediastinum and cardiac silhouette are normal. Evidence for prior sternotomy. The lung valle are clear and without acute consolidation, effusion, or pneumothorax. The skeletal structures are intact and normal. IMPRESSION: No acute cardiopulmonary process. <Electronically signed by Royal Kearney > 11/17/20 [id number]
[2020-11-17 15:47] LABS: HEMOGLOBIN 14.4 g/dl (12.0-15.5); MEAN CORPUSCULAR HGB CONC 33.5 g/dl (32.0-36.5); MEAN CORPUSCULAR VOLUME 95.6 fl (80.0-96.0); PLATELET COUNT, AUTOMATED 428 10^3/uL (150-450); WHITE BLOOD COUNT 10.2 10^3/uL (4.0-10.0)
[2020-11-17 18:14] LABS: ALBUMIN 3.3 GM/DL (3.2-5.2); ALT/SGPT 17 U/L (12-78); BILIRUBIN,TOTAL 0.2 MG/DL (0.2-1.0); BLOOD UREA NITROGEN 5 MG/DL (7-18); CALCIUM LEVEL 8.7 MG/DL (8.5-10.1); CARBON DIOXIDE LEVEL 22 MEQ/L (21-32); CHLORIDE LEVEL 110 MEQ/L (98-107); CHOLESTEROL LEVEL 185 MG/DL (<200); CHOLESTEROL RISK RATIO 5.606 (<5); CREATININE FOR GFR 0.66 MG/DL (0.55-1.30); GLOMERULAR FILTRATION RATE > 60.0 (>60); GLUCOSE, FASTING 93 MG/DL (70-100); HDL CHOLESTEROL 33 MG/DL (>40); LDL CHOLESTEROL 122 MG/DL (<100); NON-HDL-C 152 MG/DL; POTASSIUM SERUM 4.2 MEQ/L (3.5-5.1); SODIUM LEVEL 139 MEQ/L (136-145); TOTAL 25(OH) VITAMIN D 32.6 NG/ML (30.0-100.0); TOTAL PROTEIN 7.2 GM/DL (6.4-8.2); TRIGLYCERIDES LEVEL 148 MG/DL (<150)
== END ==
LOC: M LAB 13:54
PROVIDERS: ATTEND Family Medicine
DX: R53.83 Other fatigue (principal); I10 Essential (primary) hypertension

== ENCOUNTER → 2020-11-19 | Outpatient (CLI) | payer OTHER ==
--- NOTE | 2020-11-19 08:42 | REPMRS ---
Patient History The patient states she had a clinical breast exam in 10/2019 Family history of breast cancer at age 22 in brother, breast cancer at age 30 in sister, breast cancer at age 32 in sister, breast cancer at age 32 in mother, breast cancer in maternal aunt, breast cancer in maternal aunt, colorectal cancer at age 29 in sister. Digital Woman Screen Mammo: November 19, 2020 - Exam #: [id number] Bilateral CC and MLO view(s) were taken. Technologist: Naheed Alvarez, Technologist Prior study comparison: December 19, 2019, diagnostic bilateral mammo performed at [facility]. January 02, 2019, digital mammo screening bilat, performed at [facility]. February 22, 2017, bilateral digital mammo screening bilat, performed at [facility]. FINDINGS: There are scattered fibroglandular densities. The Volpara volumetric breast density category is: B. There is a moderate amount of residual fibroglandular tissue which is fairly symmetric. There is no interval development of dominant mass, architectural distortion, or grouped microcalcification typical of malignancy. There has been no change in the appearance of the mammogram from the prior studies. 3-D tomosynthesis shows no additional findings. Assessment: BI-RADS/ACR category 1 mammogram. Negative Mammogram. Recommendation Breast MRI of both breasts in 6 months. Routine screening mammogram of both breasts in 1 year (for women over age 40). This patient's [facility] Lifetime Breast Cancer RIsk is estimated at 44.8 %. Annual screening Breast MRI scanniing is recommended for patient's whose lifetime risk assessment is over 20%. This mammogram was interpreted with the aid of an FDA-approved computer-aided dectection system. Electronically Signed By: Lamont Mcclain MD 11/19/20 [id number]
== END ==
LOC: M WHC 06:57
PROVIDERS: ATTEND Family Medicine
DX: Z12.31 Encounter for screening mammogram for malignant neoplasm of breast (principal); Z80.3 Family history of malignant neoplasm of breast; Z80.0 Family history of malignant neoplasm of digestive organs

== ENCOUNTER 2020-12-24 20:37 | Emergency (ER) | payer OTHER ==
[~2020-12-24] VITALS: Ht 147.3 cm; Wt 71.3 kg
[2020-12-24 20:38] VITALS: BP 170/90
[2020-12-25] MEDS ORDERED: OXYC1TAB15 (16:47)
== END 2020-12-25 00:13 | disposition left against medical advice (07) ==
LOC: M ED 20:37
DX: Z53.21 Procedure and treatment not carried out due to patient leaving prior to being seen by health care provider (principal)

== ENCOUNTER 2020-12-25 16:40 | Emergency (ER) | payer OTHER ==
[~2020-12-25] VITALS: Ht 147.3 cm; Wt 68.2 kg
[2020-12-25] MEDS ORDERED: OXYC1TAB15 (16:47)
[2020-12-25] MEDS ORDERED: KETOROLAC 30 MG/ML 1ML VIAL IV ONE (18:00)
[2020-12-25 18:39] LABS: BASO # 0.1 10^3/uL (0.0-0.2); BASO % 0.8 % (0.0-1.0); EOS # 0.2 10^3/uL (0.0-0.5); EOS % 2.2 % (0.0-3.0); HEMATOCRIT 41.8 % (36.0-47.0); HEMOGLOBIN 13.9 g/dl (12.0-15.5); LYMPH % 18.1 % (24.0-44.0); MEAN CORPUSCULAR HEMOGLOBIN 31.8 pg (27.0-33.0); MEAN CORPUSCULAR HGB CONC 33.3 g/dl (32.0-36.5); MEAN CORPUSCULAR VOLUME 95.7 fl (80.0-96.0); MONO # 0.6 10^3/uL (0.0-0.8); MONO % 5.3 % (2.0-8.0); NEUTROPHILS # 7.9 10^3/uL (1.5-8.5); NEUTROPHILS % 73.1 % (36.0-66.0); PLATELET COUNT, AUTOMATED 399 10^3/uL (150-450); RED BLOOD COUNT 4.37 10^6/uL (4.00-5.40); WHITE BLOOD COUNT 10.8 10^3/uL (4.0-10.0)
[2020-12-25 18:52] LABS: ALBUMIN 3.1 GM/DL (3.2-5.2); ALT/SGPT 17 U/L (12-78); BILIRUBIN,DIRECT < 0.1 MG/DL (0.0-0.2); BILIRUBIN,TOTAL 0.2 MG/DL (0.2-1.0); LIPASE 1139 U/L (73-393); TOTAL PROTEIN 6.8 GM/DL (6.4-8.2)
--- NOTE | 2020-12-25 20:01 | REPVR ---
PROCEDURE INFORMATION: Exam: US Pelvis, Transvaginal Exam date and time: 12/25/2020 7:21 PM Age: 40 years old Clinical indication: Pelvic pain; Additional info: Left pelvic pain TECHNIQUE: Imaging protocol: Real-time transvaginal pelvic ultrasound with image documentation. Transvaginal imaging was used for better evaluation of the endometrium, adnexa, and/or cervix. COMPARISON: US PELVIC NON-OB COMPLETE 10/28/2019 8:12 PM FINDINGS: Uterus/cervix: Uterus measures 7.9 x 4 x 5.8 cm. Endometrial echo complex measures 5 mm. Multiple cervical nabothian cysts demonstrated measuring up to 7 mm. Submucosal hypoechoic lesion demonstrated in the fundus of the uterus measures 1.8 x 1.5 x 2.5 cm consistent with fibroid. Additional fibroids may be present as well. Right adnexa: Right ovary measures 3.2 x 2 x 2.6 cm. Normal flow. Left adnexa: Left ovary measures 3.5 x 1.7 x 3.7 cm. Dominant follicles measuring up to 1.4 cm demonstrated. Normal flow. Intraperitoneal space: No free fluid. IMPRESSION: 1. Uterine fibroids. 2. Cervical nabothian cysts. Electronically signed by: Rayo Porras On 12/25/2020 20:02:34 PM
[2020-12-25 20:46] VITALS: BP 165/115
== END 2020-12-25 20:49 | disposition home or self-care (01) ==
LOC: M ED 16:40
DX: D25.9 Leiomyoma of uterus, unspecified (principal); K85.90 Acute pancreatitis without necrosis or infection, unspecified; I10 Essential (primary) hypertension; J45.909 Unspecified asthma, uncomplicated; K21.9 Gastro-esophageal reflux disease without esophagitis; F41.9 Anxiety disorder, unspecified; Z87.442 Personal history of urinary calculi; Z79.899 Other long term (current) drug therapy; Z88.0 Allergy status to penicillin; Z88.1 Allergy status to other antibiotic agents; Z88.2 Allergy status to sulfonamides; Z88.8 Allergy status to other drugs, medicaments and biological substances; Z91.041 Radiographic dye allergy status; F17.210 Nicotine dependence, cigarettes, uncomplicated
CPT/HCPCS: 76830; 76856; 80047; 80076; 81001; 83690; 84702; 85025; 93976; 96374; 99284; J1885

== ENCOUNTER → 2021-01-31 | Outpatient (CLI) | payer OTHER ==
[~2021-01-31] MED LIST changes: +OXYC1TAB15
[2021-01-31 16:38] LABS: AMYLASE 46 U/L (25-115); LIPASE 296 U/L (73-393)
== END ==
LOC: M WUC 14:23
PROVIDERS: ATTEND Family Medicine
DX: R10.9 Unspecified abdominal pain (principal); K85.90 Acute pancreatitis without necrosis or infection, unspecified

== ENCOUNTER 2021-03-29 20:40 | Emergency (ER) | payer OTHER ==
[~2021-03-29] VITALS: Ht 149.9 cm; Wt 67.9 kg
[~2021-03-29 20:40] MED LIST changes: -OXYC1TAB15; +OXYC7.5T3
[2021-03-29 21:33] LABS: BASO # 0.1 10^3/uL (0.0-0.2); BASO % 0.5 % (0.0-1.0); EOS # 0.1 10^3/uL (0.0-0.5); HEMATOCRIT 44.5 % (36.0-47.0); HEMOGLOBIN 15.1 g/dl (12.0-15.5); LYMPH # 1.8 10^3/uL (1.5-5.0); LYMPH % 13.4 % (24.0-44.0); MEAN CORPUSCULAR HEMOGLOBIN 31.8 pg (27.0-33.0); MEAN CORPUSCULAR HGB CONC 33.9 g/dl (32.0-36.5); MEAN CORPUSCULAR VOLUME 93.7 fl (80.0-96.0); MONO # 0.6 10^3/uL (0.0-0.8); MONO % 4.2 % (2.0-8.0); NEUTROPHILS % 80.5 % (36.0-66.0); PLATELET COUNT, AUTOMATED 442 10^3/uL (150-450); RED BLOOD COUNT 4.75 10^6/uL (4.00-5.40); WHITE BLOOD COUNT 13.7 10^3/uL (4.0-10.0)
[2021-03-29] MEDS ORDERED: NS 1,000 ML IV ONE (21:50)
[2021-03-29] MEDS ORDERED: ONDANSETRON 4MG/2ML VIAL IV ONE (21:50)
[2021-03-29 21:57] LABS: HCG, SERUM QUALITATIVE NEGATIVE (NEGATIVE)
[2021-03-29 22:10] LABS: ALBUMIN 3.6 GM/DL (3.2-5.2); ALT/SGPT 23 U/L (12-78); BILIRUBIN,DIRECT 0.1 MG/DL (0.0-0.2); BILIRUBIN,TOTAL 0.4 MG/DL (0.2-1.0); BLOOD UREA NITROGEN 5 MG/DL (7-18); CALCIUM LEVEL 9.2 MG/DL (8.5-10.1); CARBON DIOXIDE LEVEL 27 MEQ/L (21-32); CHLORIDE LEVEL 106 MEQ/L (98-107); CK-MB VALUE MASS 1.9 NG/ML (<3.6); CPK CREATINE PHOSPHOKINASE 145 U/L (26-192); CREATININE FOR GFR 0.65 MG/DL (0.55-1.30); GLOMERULAR FILTRATION RATE > 60.0 (>60); GLUCOSE, FASTING 108 MG/DL (70-100); LIPASE 134 U/L (73-393); MB/CK RELATIVE INDEX 1.31 (< OR =4); POTASSIUM SERUM 3.7 MEQ/L (3.5-5.1); SODIUM LEVEL 137 MEQ/L (136-145); TOTAL PROTEIN 7.6 GM/DL (6.4-8.2); TROPONIN I < 0.02 NG/ML (< 0.10)
--- NOTE | 2021-03-29 23:00 | REPVR ---
PROCEDURE INFORMATION: Exam: CT Abdomen And Pelvis Without Contrast Exam date and time: 03/29/2021 10:11 PM Age: 40 years old Clinical indication: Abdominal pain; Localized; Left; Additional info: Left flank pain, llq pain TECHNIQUE: Imaging protocol: Computed tomography of the abdomen and pelvis without contrast. Axial, coronal and sagittal reformatted images were created and reviewed. Radiation optimization: All CT scans at this facility use at least one of these dose optimization techniques: automated exposure control; mA and/or kV adjustment per patient size (includes targeted exams where dose is matched to clinical indication); or iterative reconstruction. COMPARISON: CT ABD PELVIS W/O CONTRAST 01/16/2019 7:25 PM FINDINGS: Heart: Evidence of open heart surgery. Mediastinal space: Small hiatal hernia. Liver: Unremarkable. Gallbladder and bile ducts: Status post cholecystectomy. No biliary ductal dilatation. Pancreas: Unremarkable. Spleen: Unremarkable. Adrenal glands: Normal. No mass. Kidneys and ureters: 1 cm left renal cyst (no follow-up is indicated based on the imaging appearance). Nonobstructing left renal calculus. No hydronephrosis. Stomach and bowel: Moderate amount of retained stool in the colon. No obstruction. No bowel wall thickening. No pneumatosis. Appendix: Normal. Intraperitoneal space: No free fluid. No organized fluid collection. No free air. Vasculature: Mild atherosclerotic disease. No aneurysm. Lymph nodes: No pathologically enlarged lymph nodes. Urinary bladder: Unremarkable as visualized. Reproductive: 2.4 cm dominant right ovarian follicle. Bones/joints: No acute osseous abnormality. Bilateral L5 pars defects. Soft tissues: Tiny, fat containing umbilical hernia. IMPRESSION: 1. Limited noncontrast examination without CT evidence of acute intra-abdominal or pelvic pathology. 2. Additional findings, as above. COMMENTS: Consistent with the [employer]'s Incidental Findings Committee white paper (J Am Josephine Radiol 2018): Any incidental renal lesion less than 1 cm or classified as too small to characterize, or any incidental cystic renal lesion characterized as simple-appearing, is likely benign. No follow-up imaging is recommended for these lesions per consensus recommendations based on imaging criteria. Electronically signed by: José Miguel Gee On 03/29/2021 22:59:53 PM
--- NOTE | 2021-03-29 23:00 | REPVR ---
PROCEDURE INFORMATION: Exam: XR Chest Exam date and time: 03/29/2021 10:25 PM Age: 40 years old Clinical indication: Pain; Angina pectoris; Additional info: Chest pain TECHNIQUE: Imaging protocol: XR of the chest. Views: 1 view. COMPARISON: CR Chest, 2 view PA, Lat 11/17/2020 2:29 PM FINDINGS: Lungs: Unremarkable. No consolidation. Pleural spaces: Unremarkable. No pleural effusion. No pneumothorax. Heart/Mediastinum: Evidence of open heart surgery. Bones/joints: Unremarkable. IMPRESSION: No acute radiographic findings. Electronically signed by: José Miguel Gee On 03/29/2021 23:00:27 PM
[2021-03-30] MEDS ORDERED: MIRA3350 PO (00:34)
[2021-03-30] MEDS ORDERED: MAGNESIUM CITRATE 300 ML BTL PO ONE (00:35)
[2021-03-30 00:56] VITALS: BP 146/100
--- NOTE | 2021-03-30 05:25 | ECGEPIP ---
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
== END 2021-03-30 01:15 | disposition home or self-care (01) ==
LOC: M ED 20:40
DX: K59.00 Constipation, unspecified (principal); J45.909 Unspecified asthma, uncomplicated; F33.9 Major depressive disorder, recurrent, unspecified; F41.9 Anxiety disorder, unspecified; G43.909 Migraine, unspecified, not intractable, without status migrainosus; G70.00 Myasthenia gravis without (acute) exacerbation; Z79.899 Other long term (current) drug therapy; Z88.0 Allergy status to penicillin; Z88.1 Allergy status to other antibiotic agents; Z88.2 Allergy status to sulfonamides; Z88.8 Allergy status to other drugs, medicaments and biological substances; Z91.041 Radiographic dye allergy status; F17.210 Nicotine dependence, cigarettes, uncomplicated
CPT/HCPCS: 71045; 74176; 80048; 80076; 81001; 82550; 82553; 83690; 84703; 85025; 93005; 93041; 94760; 96361; 96374; 99284; J2405

== ENCOUNTER → 2021-08-08 | Outpatient (CLI) | payer OTHER ==
[~2021-08-08] MED LIST changes: -CEFD1CAP8 PO; +CEFD300C41 PO; +CLIN-250 PO; -CLIN150C15 PO; +CLIN150C17 PO; -CLIN300C6 PO; -DICY20TA11 PO; +DICY20TA20 PO; -IBUP200T45 PO; +IBUP200T46 PO; +MIRA3350 PO; +POTA-151; -POTA20TA6
[2021-08-08 17:02] LABS: ALBUMIN 3.4 GM/DL (3.2-5.2); ALT/SGPT 16 U/L (12-78); BILIRUBIN,TOTAL 0.4 MG/DL (0.2-1.0); BLOOD UREA NITROGEN 6 MG/DL (7-18); CALCIUM LEVEL 8.6 MG/DL (8.5-10.1); CARBON DIOXIDE LEVEL 23 MEQ/L (21-32); CHLORIDE LEVEL 109 MEQ/L (98-107); CHOLESTEROL LEVEL 191 MG/DL (<200); CHOLESTEROL RISK RATIO 6.161 (<5); GLOMERULAR FILTRATION RATE > 60.0 (>58); GLUCOSE, FASTING 139 MG/DL (70-100); HDL CHOLESTEROL 31 MG/DL (>40); LDL CHOLESTEROL 138 MG/DL (<100); NON-HDL-C 160 MG/DL; POTASSIUM SERUM 3.7 MEQ/L (3.5-5.1); SODIUM LEVEL 138 MEQ/L (136-145); TOTAL PROTEIN 7.2 GM/DL (6.4-8.2); TRIGLYCERIDES LEVEL 109 MG/DL (<150)
== END ==
LOC: M WUC 13:56
PROVIDERS: ATTEND Physician Assistant
DX: Z13.228 Encounter for screening for other metabolic disorders (principal)

== ENCOUNTER → 2021-08-09 | Outpatient (CLI) | payer OTHER | LOC: M RAD 12:58 | PROVIDERS: ATTEND Physician Assistant Medical | DX: Z12.31 Encounter for screening mammogram for malignant neoplasm of breast (principal); Z53.9 Procedure and treatment not carried out, unspecified reason ==

== ENCOUNTER → 2022-01-09 | Outpatient (CLI) | payer OTHER | LOC: M WHC 14:34 | PROVIDERS: ATTEND Specialist | DX: Z12.31 Encounter for screening mammogram for malignant neoplasm of breast (principal) ==

== ENCOUNTER 2022-02-08 19:17 | Emergency (ER) | payer OTHER ==
[~2022-02-08] VITALS: Ht 149.9 cm; Wt 62.3 kg
[~2022-02-08 19:17] MED LIST changes: -ZONI100C17 PO; +ZONI100C67 PO
[2022-02-08] MEDS ORDERED: PROPOFOL 1,000 MG/100 ML VIAL As Ordered ONE ×2 (19:57→22:28)
[2022-02-08] MEDS ORDERED: TENECTEPLASE 50 MG KIT (TNKase) (J3101 PER 1MG) IV ONE (20:05)
[2022-02-08] MEDS ORDERED: HEPARIN SOD (PORCINE) 5000UNITS/ML 1ML VIAL/SYRINGE IV ONE (20:05)
[2022-02-08] MEDS ORDERED: HEPARIN DRIP 25,000 UNITS in IV 1 EA IV SCH (20:05)
[2022-02-08 20:08] LABS: BASO # 0.1 10^3/uL (0.0-0.2); BASO % 0.5 % (0.0-1.0); EOS # 0.2 10^3/uL (0.0-0.5); EOS % 1.4 % (0.0-3.0); HEMATOCRIT 44.8 % (36.0-47.0); HEMOGLOBIN 15.2 g/dl (12.0-15.5); LYMPH # 3.5 10^3/uL (1.5-5.0); LYMPH % 27.8 % (24.0-44.0); MEAN CORPUSCULAR HGB CONC 33.9 g/dl (32.0-36.5); MEAN CORPUSCULAR VOLUME 97.4 fl (80.0-96.0); MONO # 0.6 10^3/uL (0.0-0.8); MONO % 4.9 % (2.0-8.0); NEUTROPHILS % 63.8 % (36.0-66.0); PLATELET COUNT, AUTOMATED 471 10^3/uL (150-450); WHITE BLOOD COUNT 12.6 10^3/uL (4.0-10.0)
[2022-02-08 20:20] LABS: INR 1.02; PROTHROMBIN TIME 13.8 SECONDS (12.7-14.5)
[2022-02-08] MEDS ORDERED: AMIODARONE HCL 150 MG/100 ML PREMIXED BAG (NEXTERONE) (J0282 PER 30MG) As Ordered ONE (20:25)
[2022-02-08 20:43] LABS: ALBUMIN 3.4 GM/DL (3.2-5.2); ALT/SGPT 149 U/L (12-78); BILIRUBIN,DIRECT < 0.1 MG/DL (0.0-0.2); BILIRUBIN,TOTAL 0.3 MG/DL (0.2-1.0); BLOOD UREA NITROGEN 6 MG/DL (7-18); CALCIUM LEVEL 9.1 MG/DL (8.5-10.1); CARBON DIOXIDE LEVEL 20 MEQ/L (21-32); CHLORIDE LEVEL 110 MEQ/L (98-107); CREATININE FOR GFR 0.88 MG/DL (0.55-1.30); GLOMERULAR FILTRATION RATE > 60.0 (>58); GLUCOSE, FASTING 175 MG/DL (70-100); LIPASE 151 U/L (73-393); NT-PRO BNP 565 PG/ML (<125); POTASSIUM SERUM 3.6 MEQ/L (3.5-5.1); SODIUM LEVEL 141 MEQ/L (136-145); TOTAL PROTEIN 7.5 GM/DL (6.4-8.2)
[2022-02-08 20:44] LABS: CK-MB VALUE MASS 7.9 NG/ML (<3.6); HCG, SERUM QUALITATIVE NEGATIVE (NEGATIVE); MB/CK RELATIVE INDEX 4.57 (< OR =4)
[2022-02-08] MEDS ORDERED: AMIODARONE HCL 150 MG in IV 1 EA IV SCH (20:45)
[2022-02-08] MEDS: AMIODARONE HCL 360 MG in IV 1 EA IV SCH ×2 (20:48→20:54)
[2022-02-08] MEDS ORDERED: CLOPIDOGREL 300 MG TAB (PLAVIX) NG STA (20:55)
[2022-02-08] MEDS ORDERED: PILL CUTTER 1 EACH XX ONE (21:19)
[2022-02-08] MEDS ORDERED: NITROGLYCERIN/D5W 100MCG/ML 25 MG in IV 1 EA IV SCH (21:20)
[2022-02-08 21:27] LABS: RSV AMPLIFICATION NEGATIVE (NEGATIVE)
[2022-02-08] MEDS ORDERED: ETOMIDATE INJ 20MG/10ML VIAL IV STA (21:37)
[2022-02-08] MEDS ORDERED: propofoL 1,000 MG in IV 1 EA IV SCH (21:40)
[2022-02-08] MEDS ORDERED: ROCURONIUM BROMIDE 50 MG/5 ML VIAL IV SCH (21:40)
[2022-02-08 22:05] VITALS: BP 160/100
== END 2022-02-08 22:15 | disposition short-term general hospital (02) ==
LOC: M ED 19:17
DX: I46.9 Cardiac arrest, cause unspecified (principal); I21.3 ST elevation (STEMI) myocardial infarction of unspecified site; G70.00 Myasthenia gravis without (acute) exacerbation; Z79.899 Other long term (current) drug therapy; Z88.0 Allergy status to penicillin; Z88.1 Allergy status to other antibiotic agents; Z88.2 Allergy status to sulfonamides; Z88.8 Allergy status to other drugs, medicaments and biological substances; Z91.041 Radiographic dye allergy status
CPT/HCPCS: 31500; 71045; 80047; 80048; 80076; 82550; 82553; 83690; 83880; 84703; 85025; 85610; 87631; 92960; 93005; 93041; 94760; 96365; 96368; 96375; 99291; J0282; J1644; J3101

== ENCOUNTER → 2022-02-14 | Outpatient (REF) | payer OTHER | LOC: M LAB REF 15:53 | PROVIDERS: ATTEND Physician Assistant | DX: R30.0 Dysuria (principal) ==

== ENCOUNTER → 2022-03-18 | Outpatient (CLI) | payer OTHER ==
[2022-03-18 12:54] LABS: HEMATOCRIT 40.5 % (36.0-47.0); HEMOGLOBIN 13.6 g/dl (12.0-15.5); MEAN CORPUSCULAR HEMOGLOBIN 32.1 pg (27.0-33.0); MEAN CORPUSCULAR HGB CONC 33.6 g/dl (32.0-36.5); MEAN CORPUSCULAR VOLUME 95.5 fl (80.0-96.0); PLATELET COUNT, AUTOMATED 342 10^3/uL (150-450); RED BLOOD COUNT 4.24 10^6/uL (4.00-5.40); WHITE BLOOD COUNT 6.8 10^3/uL (4.0-10.0)
[2022-03-18 13:12] LABS: HEMOGLOBIN A1c 5.1 %
[2022-03-18 13:32] LABS: ALBUMIN 3.3 GM/DL (3.2-5.2); ALT/SGPT 10 U/L (12-78); BILIRUBIN,TOTAL 0.6 MG/DL (0.2-1.0); BLOOD UREA NITROGEN 3 MG/DL (7-18); CALCIUM LEVEL 8.7 MG/DL (8.5-10.1); CARBON DIOXIDE LEVEL 25 MEQ/L (21-32); CHLORIDE LEVEL 112 MEQ/L (98-107); CREATININE FOR GFR 0.61 MG/DL (0.55-1.30); FREE T4 1.05 NG/DL (0.76-1.46); GLOMERULAR FILTRATION RATE > 60.0 (>58); GLUCOSE, FASTING 94 MG/DL (70-100); POTASSIUM SERUM 3.5 MEQ/L (3.5-5.1); SODIUM LEVEL 140 MEQ/L (136-145)
== END ==
LOC: M LAB 12:01
PROVIDERS: ATTEND Physician Assistant
DX: I10 Essential (primary) hypertension (principal)

== ENCOUNTER → 2022-03-18 | Outpatient (CLI) | payer OTHER | LOC: M RAD 12:08 | PROVIDERS: ATTEND Student in an Organized Health Care Education/Training Program | DX: M79.674 Pain in right toe(s) (principal) ==

== ENCOUNTER → 2022-03-18 | Outpatient (CLI) | payer OTHER ==
[2022-03-18 13:30] LABS: FREE T4 1.04 NG/DL (0.76-1.46); THYROID STIMULATING HORMONE 2.47 uIU/ML (0.358-3.740)
[2022-03-20 12:59] LABS: PROGESTERONE 0.27 NG/ML
[2022-03-20 13:00] LABS: FOLLICLE STIMULATING HORMONE 5.7 mIU/mL; LUTEINIZING HORMONE 7.9 mIU/mL; PROLACTIN 8.9 NG/ML
== END ==
LOC: M LAB 12:06
PROVIDERS: ATTEND Specialist
DX: N92.6 Irregular menstruation, unspecified (principal)

== ENCOUNTER 2022-04-03 22:41 | Emergency (ER) | payer OTHER ==
[~2022-04-03] VITALS: Ht 144.8 cm; Wt 60.0 kg
[2022-04-03 22:41] VITALS: BP 141/94
[2022-04-03] MEDS ORDERED: LISI2.5T9 (22:49)
[2022-04-03] MEDS ORDERED: CLOP75TA2 (22:49)
[2022-04-03] MEDS ORDERED: ASPI81CH33 PO (22:49)
[2022-04-03] MEDS ORDERED: METO1TAB32 (22:49)
[2022-04-03] MEDS ORDERED: ATOR80TA59 (22:50)
== END 2022-04-04 00:03 | disposition left against medical advice (07) ==
LOC: M ED 22:41
DX: Z53.21 Procedure and treatment not carried out due to patient leaving prior to being seen by health care provider (principal)

== ENCOUNTER → 2022-04-05 | Outpatient (CLI) | payer OTHER ==
[~2022-04-05] MED LIST changes: +ASPI81CH33 PO; +ATOR80TA59; +CLOP75TA2; +LISI2.5T9; +METO1TAB32
[2022-04-05 12:53] LABS: ALBUMIN 3.4 GM/DL (3.2-5.2); ALT/SGPT 8 U/L (12-78); BILIRUBIN,TOTAL 0.6 MG/DL (0.2-1.0); BLOOD UREA NITROGEN 5 MG/DL (7-18); CALCIUM LEVEL 8.8 MG/DL (8.5-10.1); CARBON DIOXIDE LEVEL 22 MEQ/L (21-32); CHLORIDE LEVEL 113 MEQ/L (98-107); CHOLESTEROL LEVEL 100 MG/DL (<200); CHOLESTEROL RISK RATIO 3.333 (<5); CREATININE FOR GFR 0.67 MG/DL (0.55-1.30); GLOMERULAR FILTRATION RATE > 60.0 (>58); GLUCOSE, FASTING 95 MG/DL (70-100); HDL CHOLESTEROL 30 MG/DL (>40); LDL CHOLESTEROL 52 MG/DL (<100); NON-HDL-C 70 MG/DL; POTASSIUM SERUM 3.6 MEQ/L (3.5-5.1); SODIUM LEVEL 141 MEQ/L (136-145); TOTAL PROTEIN 6.8 GM/DL (6.4-8.2); TRIGLYCERIDES LEVEL 89 MG/DL (<150)
== END ==
LOC: M WUC 10:10
PROVIDERS: ATTEND Internal Medicine Cardiovascular Disease
DX: I25.10 Atherosclerotic heart disease of native coronary artery without angina pectoris (principal); E78.5 Hyperlipidemia, unspecified

== ENCOUNTER 2022-04-25 23:28 | Emergency (ER) | payer OTHER ==
[~2022-04-25] VITALS: Ht 144.8 cm; Wt 59.1 kg
[2022-04-26 00:13] LABS: BASO # 0.1 10^3/uL (0.0-0.2); BASO % 0.4 % (0.0-1.0); EOS # 0.2 10^3/uL (0.0-0.5); EOS % 1.7 % (0.0-3.0); HEMATOCRIT 39.9 % (36.0-47.0); HEMOGLOBIN 13.2 g/dl (12.0-15.5); LYMPH # 2.2 10^3/uL (1.5-5.0); LYMPH % 19.5 % (24.0-44.0); MEAN CORPUSCULAR HEMOGLOBIN 31.1 pg (27.0-33.0); MEAN CORPUSCULAR HGB CONC 33.1 g/dl (32.0-36.5); MEAN CORPUSCULAR VOLUME 93.9 fl (80.0-96.0); MONO # 0.5 10^3/uL (0.0-0.8); MONO % 4.8 % (2.0-8.0); NEUTROPHILS # 8.2 10^3/uL (1.5-8.5); NEUTROPHILS % 73.2 % (36.0-66.0); PLATELET COUNT, AUTOMATED 340 10^3/uL (150-450); RED BLOOD COUNT 4.25 10^6/uL (4.00-5.40); WHITE BLOOD COUNT 11.2 10^3/uL (4.0-10.0)
[2022-04-26 00:24] LABS: INR 1.04
[2022-04-26 00:42] LABS: CK-MB VALUE MASS < 1.0 NG/ML (<3.6); CPK CREATINE PHOSPHOKINASE 55 U/L (26-192); MB/CK RELATIVE INDEX 1.82 (< OR =4)
[2022-04-26 00:50] LABS: ALBUMIN 3.5 GM/DL (3.2-5.2); ALT/SGPT 13 U/L (12-78); BILIRUBIN,DIRECT 0.2 MG/DL (0.0-0.2); BILIRUBIN,TOTAL 0.5 MG/DL (0.2-1.0); BLOOD UREA NITROGEN 11 MG/DL (7-18); CALCIUM LEVEL 9.1 MG/DL (8.5-10.1); CARBON DIOXIDE LEVEL 25 MEQ/L (21-32); CHLORIDE LEVEL 108 MEQ/L (98-107); CREATININE FOR GFR 0.81 MG/DL (0.55-1.30); FREE T4 1.06 NG/DL (0.76-1.46); GLOMERULAR FILTRATION RATE > 60.0 (>58); GLUCOSE, FASTING 101 MG/DL (70-100); LIPASE 232 U/L (73-393); NT-PRO BNP 3595 PG/ML (<125); POTASSIUM SERUM 3.1 MEQ/L (3.5-5.1); SODIUM LEVEL 138 MEQ/L (136-145); TOTAL PROTEIN 7.5 GM/DL (6.4-8.2)
[2022-04-26 01:17] LABS: MAGNESIUM LEVEL 1.6 MG/DL (1.8-2.4)
[2022-04-26] MEDS ORDERED: MAG SULF 1GM/100ML (MAG RUN) 1 GM in IV 1 EA IV ONE (01:55)
[2022-04-26] MEDS ORDERED: MAGNESIUM GLUCONATE 500 MG TAB PO ONE (02:55)
[2022-04-26] MEDS ORDERED: SLOWTAB2 PO (02:56)
[2022-04-26 03:18] VITALS: BP 118/64
== END 2022-04-26 03:21 | disposition home or self-care (01) ==
LOC: M ED 23:28
DX: I49.3 Ventricular premature depolarization (principal); G70.00 Myasthenia gravis without (acute) exacerbation; Z88.0 Allergy status to penicillin; Z88.1 Allergy status to other antibiotic agents; Z88.6 Allergy status to analgesic agent; Z88.8 Allergy status to other drugs, medicaments and biological substances

== ENCOUNTER 2022-05-19 07:01 | Emergency (ER) | payer OTHER ==
[~2022-05-19] VITALS: Ht 147.3 cm; Wt 58.2 kg
[~2022-05-19 07:01] MED LIST changes: +SLOWTAB2 PO
[2022-05-19 08:06] LABS: VENOUS BASE EXCESS -1.9 (-2.0-2.0); VENOUS HCO3 22.2 MEQ/L (23.0-27.0); VENOUS O2 SATURATION 74.8 % (60.0-80.0); VENOUS PARTIAL PRESSURE CO2 35.8 mmHg (38.0-50.0); VENOUS PARTIAL PRESSURE O2 39.5 mmHg (30.0-50.0); VENOUS STANDARD HCO3 22.4 MEQ/L; VENOUS TOTAL CO2 23.3 MEQ/L (24.0-28.0)
[2022-05-19 08:12] LABS: BASO # 0.1 10^3/uL (0.0-0.2); BASO % 0.4 % (0.0-1.0); EOS # 0.1 10^3/uL (0.0-0.5); EOS % 0.9 % (0.0-3.0); HEMATOCRIT 37.9 % (36.0-47.0); HEMOGLOBIN 12.3 g/dl (12.0-15.5); LYMPH # 1.2 10^3/uL (1.5-5.0); LYMPH % 8.2 % (24.0-44.0); MEAN CORPUSCULAR HEMOGLOBIN 30.3 pg (27.0-33.0); MEAN CORPUSCULAR HGB CONC 32.5 g/dl (32.0-36.5); MEAN CORPUSCULAR VOLUME 93.3 fl (80.0-96.0); MONO # 0.5 10^3/uL (0.0-0.8); MONO % 3.5 % (2.0-8.0); NEUTROPHILS # 12.8 10^3/uL (1.5-8.5); NEUTROPHILS % 86.5 % (36.0-66.0); PLATELET COUNT, AUTOMATED 351 10^3/uL (150-450); RED BLOOD COUNT 4.06 10^6/uL (4.00-5.40); WHITE BLOOD COUNT 14.8 10^3/uL (4.0-10.0)
[2022-05-19 08:23] LABS: INR 1.1; PROTHROMBIN TIME 14.6 SECONDS (12.7-14.5)
[2022-05-19 08:47] LABS: CK-MB VALUE MASS < 1.0 NG/ML (<3.6); CPK CREATINE PHOSPHOKINASE 68 U/L (26-192); MB/CK RELATIVE INDEX 1.47 (< OR =4)
[2022-05-19 08:54] LABS: ALBUMIN 3.5 GM/DL (3.2-5.2); ALT/SGPT 10 U/L (12-78); BILIRUBIN,DIRECT 0.2 MG/DL (0.0-0.2); BILIRUBIN,TOTAL 0.5 MG/DL (0.2-1.0); BLOOD UREA NITROGEN 8 MG/DL (7-18); CALCIUM LEVEL 8.9 MG/DL (8.5-10.1); CARBON DIOXIDE LEVEL 23 MEQ/L (21-32); CHLORIDE LEVEL 108 MEQ/L (98-107); CREATININE FOR GFR 0.58 MG/DL (0.55-1.30); GLOMERULAR FILTRATION RATE > 60.0 (>58); GLUCOSE, FASTING 93 MG/DL (70-100); NT-PRO BNP 3905 PG/ML (<125); POTASSIUM SERUM 3.2 MEQ/L (3.5-5.1); SODIUM LEVEL 138 MEQ/L (136-145)
[2022-05-19 10:15] LABS: CK-MB VALUE MASS < 1.0 NG/ML (<3.6); CPK CREATINE PHOSPHOKINASE 51 U/L (26-192); MB/CK RELATIVE INDEX 1.96 (< OR =4)
[2022-05-19] MEDS ORDERED: FUROSEMIDE 20MG/2ML VIAL (J1940) IV ONE (11:25)
[2022-05-19] MEDS ORDERED: FUROSEMIDE 20 MG TAB PO ONE (12:15)
[2022-05-19] MEDS ORDERED: FURO20TA2 PO (13:42)
[2022-05-19] MEDS ORDERED: SPIR-10 PO (14:05)
[2022-05-19 14:43] VITALS: BP 122/81
== END 2022-05-19 14:44 | disposition home or self-care (01) ==
LOC: EDBD 07:01 → M ED 07:01
DX: I50.9 Heart failure, unspecified (principal); J45.909 Unspecified asthma, uncomplicated; G70.00 Myasthenia gravis without (acute) exacerbation; Z95.5 Presence of coronary angioplasty implant and graft; Z88.0 Allergy status to penicillin; Z88.1 Allergy status to other antibiotic agents; Z88.2 Allergy status to sulfonamides; Z88.8 Allergy status to other drugs, medicaments and biological substances; Z91.041 Radiographic dye allergy status; Z87.891 Personal history of nicotine dependence; Z79.899 Other long term (current) drug therapy; Z79.82 Long term (current) use of aspirin; Z79.01 Long term (current) use of anticoagulants

== ENCOUNTER 2022-06-16 20:51 | Emergency (ER) | payer OTHER ==
[~2022-06-16] VITALS: Ht 144.8 cm; Wt 57.7 kg
[~2022-06-16 20:51] MED LIST changes: +FURO20TA2 PO; +SPIR-10 PO
[2022-06-16 22:07] LABS: HEMATOCRIT 41.7 % (36.0-47.0); HEMOGLOBIN 13.7 g/dl (12.0-15.5); MEAN CORPUSCULAR HEMOGLOBIN 30.2 pg (27.0-33.0); MEAN CORPUSCULAR HGB CONC 32.9 g/dl (32.0-36.5); MEAN CORPUSCULAR VOLUME 92.1 fl (80.0-96.0); PLATELET COUNT, AUTOMATED 352 10^3/uL (150-450); RED BLOOD COUNT 4.53 10^6/uL (4.00-5.40); WHITE BLOOD COUNT 14.9 10^3/uL (4.0-10.0)
[2022-06-16 22:47] LABS: BLOOD UREA NITROGEN 6 MG/DL (7-18); CALCIUM LEVEL 8.7 MG/DL (8.5-10.1); CARBON DIOXIDE LEVEL 23 MEQ/L (21-32); CHLORIDE LEVEL 106 MEQ/L (98-107); CREATININE FOR GFR 0.67 MG/DL (0.55-1.30); GLOMERULAR FILTRATION RATE > 60.0 (>58); GLUCOSE, FASTING 100 MG/DL (70-100); MAGNESIUM LEVEL 1.9 MG/DL (1.8-2.4); POTASSIUM SERUM 3.4 MEQ/L (3.5-5.1); SODIUM LEVEL 137 MEQ/L (136-145)
[2022-06-16 22:55] LABS: MB/CK RELATIVE INDEX 1.82 (< OR =4)
[2022-06-17 01:22] LABS: CK-MB VALUE MASS < 1.0 NG/ML (<3.6); CPK CREATINE PHOSPHOKINASE 46 U/L (26-192); MB/CK RELATIVE INDEX 2.17 (< OR =4)
[2022-06-17 01:30] VITALS: BP 115/76
== END 2022-06-17 01:51 | disposition home or self-care (01) ==
LOC: EDBD 20:51 → M ED 20:51
DX: R11.2 Nausea with vomiting, unspecified (principal); R53.1 Weakness; R55 Syncope and collapse; I10 Essential (primary) hypertension; E78.5 Hyperlipidemia, unspecified; Z95.0 Presence of cardiac pacemaker; Z90.49 Acquired absence of other specified parts of digestive tract; Z88.0 Allergy status to penicillin; Z88.1 Allergy status to other antibiotic agents; Z88.2 Allergy status to sulfonamides; Z88.8 Allergy status to other drugs, medicaments and biological substances; Z91.041 Radiographic dye allergy status; Z79.51 Long term (current) use of inhaled steroids; Z79.899 Other long term (current) drug therapy

== ENCOUNTER 2022-12-14 07:34 | Emergency (ER) | payer OTHER ==
[~2022-12-14] VITALS: Ht 147.3 cm; Wt 61.5 kg
[2022-12-14 08:21] LABS: BASO # 0.1 10^3/uL (0.0-0.2); BASO % 0.9 % (0.0-1.0); EOS # 0.2 10^3/uL (0.0-0.5); EOS % 2.8 % (0.0-3.0); HEMATOCRIT 38.6 % (36.0-47.0); HEMOGLOBIN 12.8 g/dl (12.0-15.5); LYMPH # 1.4 10^3/uL (1.5-5.0); LYMPH % 18.4 % (24.0-44.0); MEAN CORPUSCULAR HEMOGLOBIN 29.9 pg (27.0-33.0); MEAN CORPUSCULAR HGB CONC 33.2 g/dl (32.0-36.5); MEAN CORPUSCULAR VOLUME 90.2 fl (80.0-96.0); MONO # 0.5 10^3/uL (0.0-0.8); MONO % 6.7 % (2.0-8.0); NEUTROPHILS # 5.4 10^3/uL (1.5-8.5); NEUTROPHILS % 70.9 % (36.0-66.0); PLATELET COUNT, AUTOMATED 315 10^3/uL (150-450); RED BLOOD COUNT 4.28 10^6/uL (4.00-5.40); WHITE BLOOD COUNT 7.6 10^3/uL (4.0-10.0)
[2022-12-14 08:40] LABS: ALBUMIN 3.5 G/DL (3.2-5.2); ALKALINE PHOSPHATASE 86 U/L (46-116); ALT/SGPT < 9 U/L (7.0-40); AST/SGOT 8 U/L (<34); BILIRUBIN,DIRECT 0.4 MG/DL (<0.4); BILIRUBIN,TOTAL 0.9 MG/DL (0.3-1.2); BLOOD UREA NITROGEN 7 MG/DL (9-23); CALCIUM LEVEL 8.4 MG/DL (8.5-10.1); CARBON DIOXIDE LEVEL 23 MMOL/L (20-31); CHLORIDE LEVEL 108 MMOL/L (98-107); CK-MB VALUE MASS < 1.0 NG/ML (<3.6); CPK CREATINE PHOSPHOKINASE 46 U/L (34-145); CREATININE FOR GFR 0.68 MG/DL (0.55-1.30); GLOMERULAR FILTRATION RATE > 60.0 (>58); GLUCOSE, FASTING 98 MG/DL (60-100); MB/CK RELATIVE INDEX 2.17 (< OR =4); SODIUM LEVEL 138 MMOL/L (136-145)
[2022-12-14 08:42] LABS: THYROID STIMULATING HORMONE 3.699 uIU/ML (0.55-4.78)
[2022-12-14 08:43] LABS: FREE T4 1.01 NG/DL (0.89-1.76)
[2022-12-14 10:34] LABS: CK-MB VALUE MASS < 1.0 NG/ML (<3.6)
[2022-12-14 10:37] LABS: CPK CREATINE PHOSPHOKINASE 43 U/L (34-145); MB/CK RELATIVE INDEX 2.32 (< OR =4)
[2022-12-14 12:00] VITALS: BP 109/77
== END 2022-12-14 12:43 | disposition home or self-care (01) ==
LOC: M ED 07:34
DX: R06.02 Shortness of breath (principal); J02.9 Acute pharyngitis, unspecified; H92.09 Otalgia, unspecified ear; I25.2 Old myocardial infarction; J45.909 Unspecified asthma, uncomplicated; G70.00 Myasthenia gravis without (acute) exacerbation; F32.A Depression, unspecified; F41.9 Anxiety disorder, unspecified; Z90.49 Acquired absence of other specified parts of digestive tract; Z95.5 Presence of coronary angioplasty implant and graft; Z87.891 Personal history of nicotine dependence; Z88.1 Allergy status to other antibiotic agents; Z88.0 Allergy status to penicillin; Z88.2 Allergy status to sulfonamides; Z88.8 Allergy status to other drugs, medicaments and biological substances; Z91.041 Radiographic dye allergy status; Z79.51 Long term (current) use of inhaled steroids; Z79.899 Other long term (current) drug therapy

== ENCOUNTER → 2023-05-09 | Outpatient (CLI) | payer OTHER ==
[~2023-05-09] MED LIST changes: -K-TA10TA2 PO; +POTA-165 PO
== END ==
LOC: M RAD 07:18
PROVIDERS: ATTEND Otolaryngology
DX: E04.1 Nontoxic single thyroid nodule (principal)

== ENCOUNTER → 2023-06-01 | Outpatient (CLI) | payer OTHER ==
[2023-06-01 10:59] LABS: HEMATOCRIT 42.3 % (36.0-47.0); HEMOGLOBIN 13.8 g/dl (12.0-15.5); MEAN CORPUSCULAR HEMOGLOBIN 29.9 pg (27.0-33.0); MEAN CORPUSCULAR HGB CONC 32.6 g/dl (32.0-36.5); MEAN CORPUSCULAR VOLUME 91.8 fl (80.0-96.0); PLATELET COUNT, AUTOMATED 327 10^3/uL (150-450); RED BLOOD COUNT 4.61 10^6/uL (4.00-5.40); WHITE BLOOD COUNT 7.2 10^3/uL (4.0-10.0)
[2023-06-01 11:34] LABS: IRON (FE) 56 UG/DL (50-170); TOTAL 25(OH) VITAMIN D 29.5 NG/ML (20.0-100.0)
[2023-06-01 11:35] LABS: ALBUMIN 3.4 G/DL (3.2-5.2); ALKALINE PHOSPHATASE 90 U/L (46-116); ALT/SGPT 9 U/L (7.0-40); AST/SGOT 11 U/L (<34); BILIRUBIN,TOTAL 0.8 MG/DL (0.3-1.2); BLOOD UREA NITROGEN 7 MG/DL (9-23); CALCIUM LEVEL 8.8 MG/DL (8.5-10.1); CARBON DIOXIDE LEVEL 27 MMOL/L (20-31); CHLORIDE LEVEL 106 MMOL/L (98-107); CHOLESTEROL LEVEL 107 MG/DL (<200); CREATININE FOR GFR 0.65 MG/DL (0.55-1.30); GLOMERULAR FILTRATION RATE > 60.0 (>58); GLUCOSE, FASTING 90 MG/DL (60-100); HDL CHOLESTEROL 36.8 MG/DL (>40); MAGNESIUM LEVEL 1.7 MG/DL (1.8-2.4); NON-HDL-C 70.2 MG/DL; POTASSIUM SERUM 3.9 MMOL/L (3.5-5.1); SODIUM LEVEL 140 MMOL/L (136-145); THYROID STIMULATING HORMONE 3.185 uIU/ML (0.55-4.78); TOTAL PROTEIN 6.8 G/DL (5.7-8.2); TRIGLYCERIDES LEVEL 71 MG/DL (<150)
== END ==
LOC: M LAB 10:18
PROVIDERS: ATTEND Internal Medicine Cardiovascular Disease
DX: E78.5 Hyperlipidemia, unspecified (principal); E11.9 Type 2 diabetes mellitus without complications; E03.9 Hypothyroidism, unspecified; D64.9 Anemia, unspecified; I50.20 Unspecified systolic (congestive) heart failure; E87.6 Hypokalemia

== ENCOUNTER 2023-11-20 18:40 | Emergency (ER) | payer OTHER ==
[~2023-11-20] VITALS: TEMP 98.8; Ht 149.9 cm; Wt 65.3 kg
[~2023-11-20 18:40] MED LIST changes: +CEFD1CAP9 PO; -CEFD300C41 PO
[2023-11-20 19:31] LABS: BASO # 0.1 10^3/uL (0.0-0.2); BASO % 0.8 % (0.0-1.0); EOS # 0.2 10^3/uL (0.0-0.5); EOS % 2.2 % (0.0-3.0); HEMATOCRIT 45.4 % (36.0-47.0); HEMOGLOBIN 14.7 g/dl (12.0-15.5); LYMPH # 1.6 10^3/uL (1.5-5.0); LYMPH % 16.4 % (24.0-44.0); MEAN CORPUSCULAR HEMOGLOBIN 29.9 pg (27.0-33.0); MEAN CORPUSCULAR HGB CONC 32.4 g/dl (32.0-36.5); MEAN CORPUSCULAR VOLUME 92.5 fl (80.0-96.0); MONO # 0.7 10^3/uL (0.0-0.8); MONO % 7.1 % (2.0-8.0); NEUTROPHILS # 7.1 10^3/uL (1.5-8.5); NEUTROPHILS % 73.1 % (36.0-66.0); PLATELET COUNT, AUTOMATED 352 10^3/uL (150-450); RED BLOOD COUNT 4.91 10^6/uL (4.00-5.40); WHITE BLOOD COUNT 9.7 10^3/uL (4.0-10.0)
[2023-11-20 19:41] LABS: INR 1.09; PROTHROMBIN TIME 13.7 SECONDS (12.5-14.5)
[2023-11-20 20:10] LABS: APPEARANCE, URINE CLEAR (CLEAR); BACTERIA, URINE AUTO NEGATIVE (NEGATIVE); BILIRUBIN, URINE AUTO NEGATIVE (NEGATIVE); BLOOD, URINE BLOOD 1+ (NEGATIVE); COLOR, URINE COLORLESS (YELLOW); GLUCOSE, URINE (UA) AUTO NEGATIVE (NEGATIVE); KETONE, URINE AUTO NEGATIVE (NEGATIVE); LEUKOCYTE ESTERASE, URINE AUTO NEGATIVE (NEGATIVE); NITRITE, URINE AUTO NEGATIVE (NEGATIVE); PROTEIN, URINE AUTO NEGATIVE (NEGATIVE); RBC, URINE AUTO 0 /HPF (0-3); SPECIFIC GRAVITY URINE AUTO 1.001 (1.002-1.035); SQUAMOUS EPITHELIAL CELL UR AU 0 /HPF (0-6); UROBILINOGEN, URINE AUTO 0.2 mg/dL (0.0-2.0); WBC, URINE AUTO 0 /HPF (0-3)
[2023-11-20] MEDS: NITROGLYCERIN 2% OINT 1 GM *U/D* PKT TOP ONE (20:40)
[2023-11-20 20:48] LABS: LIPASE 47 U/L (12-53)
[2023-11-20 20:50] LABS: CK-MB VALUE MASS < 1.0 NG/ML (<3.6); CPK CREATINE PHOSPHOKINASE 59 U/L (34-145); MB/CK RELATIVE INDEX 1.69 (< OR =4)
[2023-11-20 20:53] LABS: HCG, SERUM QUALITATIVE NEGATIVE (NEGATIVE)
[2023-11-20 20:54] LABS: FREE T4 0.92 NG/DL (0.89-1.76); THYROID STIMULATING HORMONE 1.599 uIU/ML (0.55-4.78)
[2023-11-20 20:56] LABS: ALBUMIN 3.7 G/DL (3.2-5.2); ALKALINE PHOSPHATASE 92 U/L (46-116); ALT/SGPT 9 U/L (7.0-40); AST/SGOT < 8 U/L (<34); BILIRUBIN,DIRECT 0.2 MG/DL (<0.4); BILIRUBIN,TOTAL 0.5 MG/DL (0.3-1.2); BLOOD UREA NITROGEN 9 MG/DL (9-23); CALCIUM LEVEL 8.2 MG/DL (8.5-10.1); CARBON DIOXIDE LEVEL 22 MMOL/L (20-31); CHLORIDE LEVEL 109 MMOL/L (98-107); CREATININE FOR GFR 0.58 MG/DL (0.55-1.30); GLOMERULAR FILTRATION RATE > 60.0 (>58); GLUCOSE, FASTING 96 MG/DL (60-100); POTASSIUM SERUM 3.9 MMOL/L (3.5-5.1); SODIUM LEVEL 137 MMOL/L (136-145); TOTAL PROTEIN 7.1 G/DL (5.7-8.2)
[2023-11-20 21:57] LABS: CK-MB VALUE MASS < 1.0 NG/ML (<3.6)
[2023-11-20 22:00] LABS: CPK CREATINE PHOSPHOKINASE 58 U/L (34-145); MB/CK RELATIVE INDEX 1.72 (< OR =4)
[2023-11-20 22:28] VITALS: BP 140/84; TEMP 98.8; O2SAT 98
== END 2023-11-20 22:33 | disposition home or self-care (01) ==
LOC: M ED 18:40
DX: F41.9 Anxiety disorder, unspecified (principal); R07.9 Chest pain, unspecified; I49.3 Ventricular premature depolarization; I10 Essential (primary) hypertension; I25.10 Atherosclerotic heart disease of native coronary artery without angina pectoris; Z91.041 Radiographic dye allergy status; Z88.0 Allergy status to penicillin; Z88.2 Allergy status to sulfonamides; Z88.1 Allergy status to other antibiotic agents; Z79.899 Other long term (current) drug therapy; Z79.82 Long term (current) use of aspirin; Z79.02 Long term (current) use of antithrombotics/antiplatelets

== ENCOUNTER → 2024-04-11 | Outpatient (CLI) | payer OTHER ==
[2024-04-11 12:06] LABS: BASO # 0.1 10^3/uL (0.0-0.2); BASO % 0.8 % (0.0-1.0); EOS # 0.2 10^3/uL (0.0-0.5); EOS % 2.5 % (0.0-3.0); HEMOGLOBIN 15.4 g/dl (12.0-15.5); LYMPH # 1.2 10^3/uL (1.5-5.0); LYMPH % 15.2 % (24.0-44.0); MEAN CORPUSCULAR HEMOGLOBIN 31.8 pg (27.0-33.0); MEAN CORPUSCULAR HGB CONC 33.5 g/dl (32.0-36.5); MEAN CORPUSCULAR VOLUME 94.8 fl (80.0-96.0); MONO # 0.5 10^3/uL (0.0-0.8); MONO % 6.2 % (2.0-8.0); NEUTROPHILS # 5.8 10^3/uL (1.5-8.5); NEUTROPHILS % 74.8 % (36.0-66.0); PLATELET COUNT, AUTOMATED 324 10^3/uL (150-450); RED BLOOD COUNT 4.85 10^6/uL (4.00-5.40); WHITE BLOOD COUNT 7.7 10^3/uL (4.0-10.0)
[2024-04-11 12:30] LABS: ALBUMIN 3.7 G/DL (3.2-5.2); ALKALINE PHOSPHATASE 106 U/L (46-116); ALT/SGPT 16 U/L (7.0-40); AST/SGOT 11 U/L (<34); BILIRUBIN,TOTAL 0.5 MG/DL (0.3-1.2); BLOOD UREA NITROGEN 7 MG/DL (9-23); CARBON DIOXIDE LEVEL 26 MMOL/L (20-31); CHLORIDE LEVEL 108 MMOL/L (98-107); CHOLESTEROL LEVEL 120 MG/DL (<200); CREATININE FOR GFR 0.68 MG/DL (0.55-1.30); GLOMERULAR FILTRATION RATE > 60.0 (>58); GLUCOSE, FASTING 91 MG/DL (60-100); LDL CHOLESTEROL 67.4 MG/DL (<100); MAGNESIUM LEVEL 1.6 MG/DL (1.8-2.4); POTASSIUM SERUM 4.4 MMOL/L (3.5-5.1); SODIUM LEVEL 138 MMOL/L (136-145); TOTAL PROTEIN 7.3 G/DL (5.7-8.2); TRIGLYCERIDES LEVEL 63 MG/DL (<150)
== END ==
LOC: M LAB 10:02
PROVIDERS: ATTEND Nurse Practitioner Adult Health
DX: D64.9 Anemia, unspecified (principal); E87.6 Hypokalemia; E83.42 Hypomagnesemia; E78.5 Hyperlipidemia, unspecified

== ENCOUNTER → 2025-01-03 | Outpatient (CLI) | payer OTHER ==
[2025-01-03 14:19] LABS: BASO # 0.1 10^3/uL (0.0-0.2); BASO % 0.8 % (0.0-1.0); EOS # 0.1 10^3/uL (0.0-0.5); EOS % 1.9 % (0.0-3.0); HEMATOCRIT 44.2 % (36.0-47.0); HEMOGLOBIN 15.1 g/dl (12.0-15.5); LYMPH # 1.3 10^3/uL (1.5-5.0); LYMPH % 17.5 % (24.0-44.0); MEAN CORPUSCULAR HGB CONC 34.2 g/dl (32.0-36.5); MEAN CORPUSCULAR VOLUME 93.6 fl (80.0-96.0); MONO # 0.4 10^3/uL (0.0-0.8); NEUTROPHILS # 5.3 10^3/uL (1.5-8.5); NEUTROPHILS % 73.5 % (36.0-66.0); PLATELET COUNT, AUTOMATED 350 10^3/uL (150-450); RED BLOOD COUNT 4.72 10^6/uL (4.00-5.40); WHITE BLOOD COUNT 7.2 10^3/uL (4.0-10.0)
[2025-01-03 14:49] LABS: ALBUMIN 3.6 G/DL (3.2-5.2); ALKALINE PHOSPHATASE 95 U/L (35-104); ALT/SGPT 11 U/L (7.0-40); AST/SGOT < 8 U/L (<34); BILIRUBIN,TOTAL 0.6 MG/DL (0.3-1.2); BLOOD UREA NITROGEN 6 MG/DL (9-23); CALCIUM LEVEL 8.6 MG/DL (8.5-10.1); CARBON DIOXIDE LEVEL 24 MMOL/L (20-31); CHLORIDE LEVEL 108 MMOL/L (98-107); CHOLESTEROL LEVEL 130 MG/DL (<200); CHOLESTEROL RISK RATIO 3.76 (<5); CREATININE FOR GFR 0.61 MG/DL (0.55-1.30); GLOMERULAR FILTRATION RATE > 90.0 (>58); GLUCOSE, FASTING 94 MG/DL (60-100); HDL CHOLESTEROL 34.5 MG/DL (>40); LDL CHOLESTEROL 76.3 MG/DL (<100); NON-HDL-C 95.5 MG/DL; POTASSIUM SERUM 3.9 MMOL/L (3.5-5.1); SODIUM LEVEL 141 MMOL/L (136-145); TRIGLYCERIDES LEVEL 96 MG/DL (<150)
[2025-01-03 14:54] LABS: FREE T4 1.09 NG/DL (0.89-1.76)
[2025-01-03 14:55] LABS: THYROID STIMULATING HORMONE 1.618 uIU/ML (0.55-4.78)
== END ==
LOC: M LAB 12:18
PROVIDERS: ATTEND Internal Medicine Cardiovascular Disease
DX: D64.9 Anemia, unspecified (principal)

== ENCOUNTER → 2025-01-03 | Outpatient (CLI) | payer OTHER ==
[2025-01-03 14:21] LABS: BASO # 0.1 10^3/uL (0.0-0.2); BASO % 0.9 % (0.0-1.0); EOS # 0.2 10^3/uL (0.0-0.5); EOS % 2.1 % (0.0-3.0); HEMATOCRIT 42.7 % (36.0-47.0); HEMOGLOBIN 14.7 g/dl (12.0-15.5); LYMPH # 1.1 10^3/uL (1.5-5.0); LYMPH % 16.2 % (24.0-44.0); MEAN CORPUSCULAR HEMOGLOBIN 32.3 pg (27.0-33.0); MEAN CORPUSCULAR HGB CONC 34.4 g/dl (32.0-36.5); MEAN CORPUSCULAR VOLUME 93.8 fl (80.0-96.0); MONO # 0.4 10^3/uL (0.0-0.8); MONO % 5.5 % (2.0-8.0); NEUTROPHILS # 5.3 10^3/uL (1.5-8.5); NEUTROPHILS % 74.9 % (36.0-66.0); PLATELET COUNT, AUTOMATED 347 10^3/uL (150-450); RED BLOOD COUNT 4.55 10^6/uL (4.00-5.40); WHITE BLOOD COUNT 7.1 10^3/uL (4.0-10.0)
[2025-01-03 14:47] LABS: ALBUMIN 3.5 G/DL (3.2-5.2); ALKALINE PHOSPHATASE 94 U/L (35-104); ALT/SGPT 11 U/L (7.0-40); AST/SGOT < 8 U/L (<34); BILIRUBIN,TOTAL 0.6 MG/DL (0.3-1.2); BLOOD UREA NITROGEN 5 MG/DL (9-23); CALCIUM LEVEL 8.8 MG/DL (8.5-10.1); CARBON DIOXIDE LEVEL 24 MMOL/L (20-31); CHLORIDE LEVEL 108 MMOL/L (98-107); GLOMERULAR FILTRATION RATE > 90.0 (>58); GLUCOSE, FASTING 96 MG/DL (60-100); POTASSIUM SERUM 3.9 MMOL/L (3.5-5.1); SODIUM LEVEL 141 MMOL/L (136-145)
== END ==
LOC: M LAB 12:20
PROVIDERS: ATTEND Psychiatry & Neurology Neurology
DX: G70.00 Myasthenia gravis without (acute) exacerbation (principal)